=== PATIENT | female | born 1985 | race Caucasian/White ===

== ENCOUNTER 2017-08-26 22:11 | Emergency (ER) | payer OTHER ==
[~2017-08-26] VITALS: Ht 162.6 cm; Wt 93.5 kg
[~2017-08-26 22:11] MED LIST: SEASTAB2 PO
[2017-08-26 22:23] VITALS: BP 134/65; PULSE 110; RESP 18; TEMP 97.8; O2SAT 97
[2017-08-26] MEDS ORDERED: DOXY10TA PO (22:32)
[2017-08-26] MEDS ORDERED: PROM25TA10 PO (22:32)
[2017-08-26] MEDS ORDERED: LEVO50TA4 PO (22:32)
--- NOTE | 2017-08-26 23:24 | PD ---
HPI Chief Complaint: GI Complaint Time Seen by Provider: 23:19 Travel History International Travel<30 days: No Contact w/Intl Traveler<30days: No Traveled to known affect area: No History of Present Illness HPI The patient is a 32-year-old female, G2, P1, A0 who has vomiting of . This is been going on for about 2 weeks and her manager content is prescribed Phenergan and diglegis. She also has prescribed Unisom. She did not take the Phenergan today because she does not like the way it makes her sleepy. She did not adequately treat her self today for nausea and believes she is dehydrated and wants to get some IV fluids and parenteral nausea medications here in the emergency department. She denies any significant abdominal pain. Her first had similar symptoms of hyperemesis gravidarum. PFSH Past Medical History Diminished Hearing: No Genitourinary: Yes (KIDNEY REFLUX CHILD) Immunizations Current: No Thyroid Disease: Yes Tetanus Vaccination: < 5 Years Influenza Vaccination: Yes ?: LMP: 05/15/17 : 2 Para: 1 Past Surgical History Oral Surgery: Yes Other Surgery: Yes (BREAST IMPLANTS) Family History Family Hypercholesterolemia: Yes (FATHER) Social History Alcohol Use: Yes (OCCASIONALLY) Tobacco Use: No Substance Use: No Allergies-Medications (Allergen,Severity, Reaction): Coded Allergies: penicillin G (Unverified Allergy, Severe, HIVES, 08/26/17) cephalexin (Unverified Allergy, Mild, hives, 08/26/17) Reported Meds & Prescriptions Reported Meds & Active Scripts Active Reported Phenergan (Promethazine HCl) 25 Mg Tablet 25 Mg PO Q6H PRN Levothyroxine (Levothyroxine Sodium) 50 Mcg Tab 50 Mcg PO DAILY Diclegis (Doxylamine-Pyridoxine) 10-10 Mg Tab 2 Tab PO HS Review of Systems Except as stated in HPI: all other systems reviewed are Neg Physical Exam Narrative GENERAL: The patient is alert, slightly dehydrated-appearing, oriented 3 in minimal apparent distress with her abdominal discomfort. Her vital signs show heart rate of 110 and blood pressure 134/65 but otherwise normal. SKIN: Focused skin assessment warm/dry. HEAD: Atraumatic. Normocephalic. EYES: Pupils equal and round. No scleral icterus. No injection or drainage. ENT: No nasal bleeding or discharge. Mucous membranes pink and moist. NECK: Trachea midline. No JVD. CARDIOVASCULAR: Regular rate and rhythm. No murmur appreciated. RESPIRATORY: No accessory muscle use. Clear to auscultation. Breath sounds equal bilaterally. GASTROINTESTINAL: Abdomen soft, non-tender, nondistended. Hepatic and splenic margins not palpable. No guarding or rebound is present. MUSCULOSKELETAL: No obvious deformities. No clubbing. No cyanosis. No edema. NEUROLOGICAL: Awake and alert. No obvious cranial nerve deficits. Motor grossly within normal limits. Normal speech. PSYCHIATRIC: Appropriate mood and affect; insight and judgment normal. Data Data Last Documented VS Vital Signs Date Time Temp Pulse Resp B/P (MAP) Pulse Ox O2 Delivery O2 Flow Rate FiO2 08/26/17 22:35 18 08/26/17 22:23 97.8 110 134/65 (88) 97 Orders Orders Promethazine Inj (Phenergan Inj) (08/26/17 23:30) Sodium Chlor 0.9% 1000 Ml Inj (Ns 1000 M (08/26/17 23:30) Acetaminophen (Tylenol) (08/26/17 23:30) Complete Blood Count With Diff (08/26/17 23:24) Comprehensive Metabolic Panel (08/26/17 23:24) Lipase (08/26/17 23:24) Labs Laboratory Tests Test 08/26/17 23:40 White Blood Count 8.7 TH/MM3 Red Blood Count 4.53 MIL/MM3 Hemoglobin 12.6 GM/DL Hematocrit 38.0 % Mean Corpuscular Volume 84.0 FL Mean Corpuscular Hemoglobin 27.9 PG Mean Corpuscular Hemoglobin Concent 33.3 % Red Cell Distribution Width 12.3 % Platelet Count 220 TH/MM3 Mean Platelet Volume 8.3 FL Neutrophils (%) (Auto) 70.4 % Lymphocytes (%) (Auto) 18.8 % Monocytes (%) (Auto) 8.7 % Eosinophils (%) (Auto) 1.8 % Basophils (%) (Auto) 0.3 % Neutrophils # (Auto) 6.1 TH/MM3 Lymphocytes # (Auto) 1.6 TH/MM3 Monocytes # (Auto) 0.8 TH/MM3 Eosinophils # (Auto) 0.2 TH/MM3 Basophils # (Auto) 0.0 TH/MM3 CBC Comment DIFF FINAL Differential Comment Blood Urea Nitrogen 10 MG/DL Creatinine 0.47 MG/DL Random Glucose 93 MG/DL Total Protein 7.5 GM/DL Albumin 3.5 GM/DL Calcium Level 8.6 MG/DL Alkaline Phosphatase 53 U/L Aspartate Amino Transf (AST/SGOT) 21 U/L Alanine Aminotransferase (ALT/SGPT) 41 U/L Total Bilirubin 0.4 MG/DL Sodium Level 137 MEQ/L Potassium Level 3.5 MEQ/L Chloride Level 105 MEQ/L Carbon Dioxide Level 23.0 MEQ/L Anion Gap 9 MEQ/L Estimat Glomerular Filtration Rate 155 ML/MIN Lipase 145 U/L MDM Medical Decision Making Medical Screen Exam Complete: Yes Emergency Medical Condition: Yes Medical Record Reviewed: Yes Interpretation(s) The CBC is normal. The complete metabolic profile is normal. The lipase is normal. Differential Diagnosis Hyperemesis gravidarum, viral gastroenteritis, acute appendicitis, cholecystitis , HEELP syndrome-highly unlikely Narrative Course It is now 003 6 in the morning and the patient has had 2 L of fluid. She should take her Phenergan and other nausea medications as prescribed by her manager content. She has these medications at home. The blood work shows no chemical evidence of dehydration. The patient has hyperemesis gravidarum, there is no clinical evidence for the other entities as listed above. Diagnosis Primary Impression: Hyperemesis gravidarum Additional Instructions: As we discussed, take your medications that the manager content gave you at home. Med/Other Pt SpecificInfo: No Change to Meds Disposition: 01 DISCHARGE HOME Condition: Stable Tyler Martinez MD Aug 26, 2017 23:24
[2017-08-26] MEDS ORDERED: ACETAMINOPHEN 500 MG CPLT PO ONE (23:30)
[2017-08-26] MEDS ORDERED: PROMETHAZINE INJ 25 MG/ML VIAL IM ONE (23:30)
[2017-08-26] MEDS: SODIUM CHLOR 0.9% 1000 ML INJ 1,000 ML IV SCH (23:42)
[2017-08-26 23:45] VITALS: BP 124/79; PULSE 72; RESP 18; O2SAT 100
[2017-08-26 23:55] LABS: AUTOMATED NEUTROPHIL # 6.1 TH/MM3 (1.8-7.7); BASOPHIL % 0.3 % (0.0-2.0); EOSINOPHIL # 0.2 TH/MM3 (0-0.4); EOSINOPHIL % 1.8 % (0.0-4.0); HEMOGLOBIN 12.6 GM/DL (11.6-15.3); LYMPH % 18.8 % (9.0-44.0); LYMPHOCYTE # 1.6 TH/MM3 (1.0-4.8); MEAN CORPUSCULAR HEMOGLOBIN 27.9 PG (27.0-34.0); MEAN CORPUSCULAR HGB CONC 33.3 % (32.0-36.0); MEAN PLATELET VOLUME 8.3 FL (7.0-11.0); MONO % 8.7 % (0.0-8.0); MONOCYTE # 0.8 TH/MM3 (0-0.9); NEUT % 70.4 % (16.0-70.0); PLATELET COUNT 220 TH/MM3 (150-450); RED BLOOD COUNT 4.53 MIL/MM3 (4.00-5.30); RED CELL DISTRIBUTION WIDTH 12.3 % (11.6-17.2); WHITE BLOOD COUNT 8.7 TH/MM3 (4.0-11.0)
[2017-08-27 00:01] LABS: CHLORIDE 105 MEQ/L (98-107); SODIUM (NA) 137 MEQ/L (136-145)
[2017-08-27 00:04] LABS: CALCIUM 8.6 MG/DL (8.5-10.1)
[2017-08-27 00:05] LABS: ALBUMIN 3.5 GM/DL (3.4-5.0); BLOOD UREA NITROGEN 10 MG/DL (7-18); GLUCOSE,RANDOM 93 MG/DL (74-106); LIPASE 145 U/L (73-393)
[2017-08-27 00:08] LABS: ALT (GPT) 41 U/L (10-53); AST (GOT) 21 U/L (15-37); CREATININE 0.47 MG/DL (0.50-1.00); GLOMERULAR FILTRATION RATE 155 ML/MIN (>89)
[2017-08-27 00:09] LABS: TOTAL BILIRUBIN ADULT 0.4 MG/DL (0.2-1.0); TOTAL PROTEIN 7.5 GM/DL (6.4-8.2)
[2017-08-27] MEDS: SODIUM CHLOR 0.9% 1000 ML INJ 1,000 ML IV SCH (00:10)
[2017-08-27 00:11] LABS: ALKALINE PHOSPHATASE 53 U/L (45-117)
[2017-08-27 00:45] VITALS: BP 124/76; PULSE 70; RESP 16; O2SAT 100
== END 2017-08-27 01:01 | disposition home or self-care (01) ==
LOC: PHED 22:11
DX: O21.0 Mild hyperemesis gravidarum (principal)
CPT/HCPCS: 80053; 83690; 85025; 96360; 96372; 99284; J2550; J7030

== ENCOUNTER 2017-09-01 14:16 | Inpatient (IN) | payer OTHER ==
[2017-09-01] VITALS (7 sets, daily range): BP systolic 107–112; BP diastolic 62–70; PULSE 66–70; RESP 17–18; TEMP 97.9–98.4
[~2017-09-01 14:16] MED LIST changes: +DOXY10TA PO; +PROM25TA10 PO; -SEASTAB2 PO
[2017-09-01] MEDS ORDERED: ALUMINUM/MAGNESIUM/SIMETH 30 ML CUP PO PRN (14:45)
[2017-09-01] MEDS ORDERED: METOCLOPRAMIDE HCL 10 MG/2 ML VIAL IV PUSH PRN (14:45)
[2017-09-01] MEDS ORDERED: SODIUM CHLORIDE 0.9% FLUSH 10 ML FLUSH IV FLUSH PRN (14:45)
[2017-09-01] MEDS ORDERED: PROMETHAZINE HCL 25 MG SUPP RECTAL PRN (14:45)
--- NOTE | 2017-09-01 14:56 | HHI.HP ---
HPI Chief Complaint severe hyperemesis, first trimester, camilo Date Seen: Sep 01, 2017 Time Seen: 14:45 Travel History International Travel<30 Days: No Contact w/Intl Traveler<30Days: No Known Affected Area: No History of Present Illness HPI 32 yo with camilo IUP at 11w2d EDC 03/21/18 admit for severe hyperemesis, unable to keep anything down for past 48 hours. Has been battling hyperemesis symptoms since 6 weeks, worse starting last Tuesday, pt went to ED over wknd for IV hydration and medication and was sent home, since discharge has been unable to tolerate po. Feeling weak, fatigued. Thought starting Synthroid last Tuesday may have been trigger for worsening of symptoms, but pt held dose yesterday on my recommendation and no improvement in symptoms. Diagnosed with subclinical hypothyroidism, started on synthroid 50mcg daily by Dr. Mcintosh. No fevers, no chills, just nausea/emesis/increased saliva production, feeling weak. Pain 2/10 cramps in abdomen, mainly from repetitive emesis. No vaginal bleeding. Too early for FM. Weeks Gestation: 11 Para: 1 : 2 History Past Medical History Medical History: Denies Significant Hx Obstetric History Obstetric History G1 = 37x5 wk 7#15oz daughter "Marlys" G2 = current EDC 03/21/18 Past Surgical History Narrative Surgical breast augmentation 02/2007 Family History Family History: Negative Social History Alcohol Use: No Tobacco Use: No Substance Abuse: No Allergies-Medications (Allergen,Severity, Reaction): Coded Allergies: penicillin G (Unverified Allergy, Severe, HIVES, 09/01/17) cephalexin (Unverified Allergy, Mild, hives, 09/01/17) Home Meds Reported Medications Promethazine (Phenergan) 25 Mg Tablet, 25 MG PO Q6H Y for NAUSEA OR VOMITING, TAB 0 Refills 08/26/17 Levothyroxine (Levothyroxine) 50 Mcg Tab, 50 MCG PO DAILY for Thyroid, #30 TAB 0 Refills 08/26/17 Doxylamine-Pyridoxine (Diclegis) 10-10 Mg Tab, 2 TAB PO HS 08/26/17 Review of Systems General / Constitutional: Weight Loss, No: Fever, Weight Gain, Chills, Other Eyes: No: Diploplia, Blurred Vision, Visual changes, Pain, Photophobia HENT: Lightheadedness, No: Headaches, Vertigo Cardiovascular: No: Irregular Rhythm, Chest Pain or Discomfort, Palpitations, Tachycardia, Syncope, Varicosities, Edema, Cyanosis Respiratory: No: Cough, Short of Breath, Other Gastrointestinal: Nausea, Vomiting, No: Diarrhea Genitourinary: No: Decreased Urinary Output, Oliguria Musculoskeletal: Weakness, Cramping, No: Limited ROM, Edema, Pain Skin: No Rash, No Itching, No Dryness, No Lumps, No Change in Pigmentation, No Change in Nails, No Alopecia, No Lesions Neurologic: Weakness, No: Dizziness, Syncope, Focal Abnormalities, Coordination Problem, Headache, Slurred Speech, Seizures Psychiatric: No: Depression, Suicidal Ideations, Homicidal Ideation Endocrine: No: Heat Intolerance, Cold Intolerance, Polydipsia, Polyuria, Other Physical Exam Narrative GENERAL: Appears ill. Fatigued. SKIN: Warm and dry. HEAD: Normocephalic and atraumatic. EYES: No scleral icterus. No injection or drainage. ENT: No nasal drainage noted. Mucous membranes pink. Airway patent. NECK: Supple, trachea midline. No JVD. CARDIOVASCULAR: Regular rate and rhythm without murmurs, gallops, or rubs. RESPIRATORY: Breath sounds equal bilaterally. No accessory muscle use. BREASTS: deferred ABDOMEN/GI: Abdomen soft, non-tender, bowel sounds present, no rebound, no guarding fundus beneath symphysis, only 11 wks GENITOURINARY: deferred EXTREMITIES: No cyanosis or edema. BACK: Nontender without obvious deformity. No CVA tenderness. NEUROLOGICAL: Awake and alert. Motor and sensory grossly within normal limits. Five out of 5 muscle strength in all muscle groups. Normal speech. Caprini VTE Risk Assessment Caprini VTE Risk Assessment: No/Low Risk (score <= 1) VTE Pharm Contraindication: High risk for bleeding Caprini Risk Assessment Model Point Value = 1 Point Value = 2 Point Value = 3 Point Value = 5 Age 41-60 Minor surgery BMI > 25 kg/m2 Swollen legs Varicose veins or History of unexplained or recurrent spontaneous Oral contraceptives or hormone replacement Sepsis (< 1 month) Serious lung disease, including pneumonia (< 1 month) Abnormal pulmonary function Acute myocardial infarction Congestive heart failure (< 1 month) History of inflammatory bowel disease Medical patient at bed rest Age 61-74 Arthroscopic surgery Major open surgery (> 45 min) Laparoscopic surgery (> 45 min) Malignancy Confined to bed (> 72 hours) Immobilizing plaster cast Central venous access Age >= 75 History of VTE Family history of VTE Factor V Leiden Prothrombin [id number] Lupus anticoagulant Anticardiolipin antibodies Elevated serum homocysteine Heparin-induced thrombocytopenia Other congenital or acquired thrombophilia Stroke (< 1 month) Elective arthroplasty Hip, pelvis, or leg fracture Acute spinal cord injury (< 1 month) Prophylaxis Regimen Total Risk Factor Score Risk Level Prophylaxis Regimen 0-1 Low Early ambulation 2 Moderate Order ONE of the following: *Sequential Compression Device (SCD) *Heparin 5000 units SQ BID 3-4 Higher Order ONE of the following medications: *Heparin 5000 units SQ TID *Enoxaparin/Lovenox 40 mg SQ daily (WT < 150 kg, CrCl > 30 mL/min) *Enoxaparin/Lovenox 30 mg SQ daily (WT < 150 kg, CrCl > 10-29 mL/min) *Enoxaparin/Lovenox 30 mg SQ BID (WT < 150 kg, CrCl > 30 mL/min) AND/OR *Sequential Compression Device (SCD) 5 or more Highest Order ONE of the following medications: *Heparin 5000 units SQ TID (Preferred with Epidurals) *Enoxaparin/Lovenox 40 mg SQ daily (WT < 150 kg, CrCl > 30 mL/min) *Enoxaparin/Lovenox 30 mg SQ daily (WT < 150 kg, CrCl > 10-29 mL/min) *Enoxaparin/Lovenox 30 mg SQ BID (WT < 150 kg, CrCl > 30 mL/min) AND *Sequential Compression Device (SCD) Data Data Vital Signs Reviewed: Yes Orders Orders Place In Observation (09/01/17 ) Diet Liquid (09/01/17 Dinner) Vital Signs (Adult) [id number] AWAKE (09/01/17 14:40) Activity Oob Ad Gogo (09/01/17 14:40) Complete Blood Count With Diff (09/01/17 14:40) Basic Metabolic Panel (Bmp) (09/01/17 14:40) Hepatic Functional Panel (09/01/17 14:40) Urinalysis - C+S If Indicated (09/01/17 14:40) Lactated Ringer's 1000 Ml Inj (Lr 1000 M (09/01/17 14:40) Acetaminophen (Tylenol) (09/01/17 14:45) Al-Mag Hy-Si 40-40-4 Mg/Ml Liq (Mag-Al P (09/01/17 14:45) Sodium Chloride 0.9% Flush (Ns Flush) (09/01/17 14:45) Sodium Chloride 0.9% Flush (Ns Flush) (09/01/17 14:45) Ondansetron Inj (Zofran Inj) (09/01/17 14:45) Us Ob Limited (09/01/17 14:40) Specimen To Be Collected PRN (09/01/17 14:40) Metoclopramide Inj (Reglan Inj) (09/01/17 14:45) Levothyroxine (Synthroid) (09/02/17 06:00) Thyroid Stimulating Hormone (09/01/17 14:45) Free Thyroxine (T4) (09/01/17 14:44) Promethazine Supp (Phenergan Supp) (09/01/17 14:45) Assessment/Plan Problem List: (1) Hyperemesis complicating , antepartum ICD Codes: O21.0 - Mild hyperemesis gravidarum Status: Acute Assessment and Plan 32 yo with camilo IUP at 11w2d admit for severe hyperemesis gravidarum 1) Hyperemesis: labs ordered, will check electrolytes; IVF ordered, clear diet for now if tolerated, IV Zofran scheduled, Reglan prn, promethazine suppository prn 2) subclinical hypothyroidism: was started on synthroid 50mcg at last visit, pt started to have worsening of symptoms after starting dose, will try 25mcg dose instead and repeat labs while inpt 3) status: last office sono 08/09/17 confirmed viable camilo IUP at 8w0d with EDC 03/21/18; will order sono for FHTs while inpt today to confirm viability 4) dispo: not meeting criteria Discharge Planning not meeting criteria Zara Avalos MD Sep 01, 2017 14:56
[2017-09-01] MEDS: LACTATED RINGER'S 1000 ML INJ 1,000 ML IV SCH ×2 (16:07→16:11)
[2017-09-01] MEDS: SODIUM CHLORIDE 0.9% FLUSH 10 ML FLUSH IV FLUSH SCH ×2 (16:07→21:00)
[2017-09-01 16:09] LABS: AUTOMATED NEUTROPHIL # 4.9 TH/MM3 (1.8-7.7); BASOPHIL % 0.2 % (0.0-2.0); EOSINOPHIL # 0.1 TH/MM3 (0-0.4); EOSINOPHIL % 1.6 % (0.0-4.0); HEMOGLOBIN 13.1 GM/DL (11.6-15.3); LYMPH % 27.2 % (9.0-44.0); LYMPHOCYTE # 2.1 TH/MM3 (1.0-4.8); MEAN CELL VOLUME 84.7 FL (80.0-100.0); MEAN CORPUSCULAR HEMOGLOBIN 29.3 PG (27.0-34.0); MEAN CORPUSCULAR HGB CONC 34.6 % (32.0-36.0); MEAN PLATELET VOLUME 8.9 FL (7.0-11.0); MONO % 9.3 % (0.0-8.0); MONOCYTE # 0.7 TH/MM3 (0-0.9); NEUT % 61.7 % (16.0-70.0); PLATELET COUNT 189 TH/MM3 (150-450); RED BLOOD COUNT 4.49 MIL/MM3 (4.00-5.30); WHITE BLOOD COUNT 7.9 TH/MM3 (4.0-11.0)
[2017-09-01] MEDS: ONDANSETRON HCL 4 MG/2 ML VIAL IV PUSH SCH ×2 (16:11→22:18)
[2017-09-01 16:27] LABS: ALBUMIN 3.8 GM/DL (3.4-5.0); BICARBONATE 20.6 MEQ/L (21.0-32.0); CALCIUM 8.9 MG/DL (8.5-10.1); CREATININE 0.46 MG/DL (0.50-1.00); DIRECT BILIRUBIN ADULT 0.1 MG/DL (0.0-0.2)
[2017-09-01 16:36] LABS: FREE T4 1.16 NG/DL (0.76-1.46); INDIRECT BILIRUBIN 0.2 MG/DL (0.0-0.8); TOTAL BILIRUBIN ADULT 0.3 MG/DL (0.2-1.0); TOTAL PROTEIN 7.7 GM/DL (6.4-8.2)
[2017-09-01 17:39] LABS: AMORPHOUS SEDIMENT, URINE RARE; BILIRUBIN, URINE NEG (NEG); BLOOD, URINE NEG (NEG); GLUCOSE,URINE NEG (NEG); KETONE, URINE 80 mg/dL (NEG); MUCUS URINE MANY /lpf (OCC); NITRITE,URINE NEG (NEG); PH, URINE 5.5 (5.0-8.5); SQUAMOUS EPITHELIAL CELL URINE 2 /hpf (0-5); URINE COLOR YELLOW (YELLW/STRAW); URINE LEUKOCYTE ESTERASE NEG (NEG)
[2017-09-01] MEDS: ACETAMINOPHEN 325 MG TAB PO PRN (19:14)
[2017-09-02] VITALS (11 sets, daily range): BP systolic 100–128; BP diastolic 59–77; PULSE 63–77; RESP 14–18; TEMP 98.1–99.2
[2017-09-02] MEDS: ACETAMINOPHEN 325 MG TAB PO PRN (06:33)
[2017-09-02] MEDS: ONDANSETRON HCL 4 MG/2 ML VIAL IV PUSH SCH (06:33)
[2017-09-02] MEDS: LEVOTHYROXINE SODIUM 25 MCG TAB PO SCH (06:33)
--- NOTE | 2017-09-02 08:41 | PD.OB.ANTE ---
Subjective Diagnosis: (1) Hyperemesis complicating , antepartum Interval History severe headache exacerbating nausea but no emesis since hydrated. miserable Objective Vital Signs Vital Signs Date Time Temp Pulse Resp B/P (MAP) Pulse Ox O2 Delivery O2 Flow Rate FiO2 09/02/17 04:35 98.1 16 09/02/17 04:35 67 101/67 (78) 09/02/17 00:28 68 100/59 (73) 09/02/17 00:28 16 09/01/17 23:05 98.4 09/01/17 23:05 66 18 107/62 (77) 09/01/17 19:32 18 09/01/17 19:29 67 112/70 (84) 09/01/17 19:28 97.9 09/01/17 18:36 70 112/68 (83) 09/01/17 18:35 17 09/01/17 17:00 18 Lab & Micro Results Test 09/01/17 15:15 09/01/17 15:30 Urine Color YELLOW Urine Turbidity HAZY Urine pH 5.5 Urine Specific Excel 1.032 Urine Protein 30 mg/dL Urine Glucose (UA) NEG mg/dL Urine Ketones 80 mg/dL Urine Occult Blood NEG Urine Nitrite NEG Urine Bilirubin NEG Urine Urobilinogen LESS THAN 2.0 MG/DL Urine Leukocyte Esterase NEG Urine RBC 1 /hpf Urine WBC 4 /hpf Urine Squamous Epithelial Cells 2 /hpf Urine Amorphous Sediment RARE Urine Mucus MANY /lpf Microscopic Urinalysis Comment CULT NOT INDICATED White Blood Count 7.9 TH/MM3 Red Blood Count 4.49 MIL/MM3 Hemoglobin 13.1 GM/DL Hematocrit 38.0 % Mean Corpuscular Volume 84.7 FL Mean Corpuscular Hemoglobin 29.3 PG Mean Corpuscular Hemoglobin Concent 34.6 % Red Cell Distribution Width 13.0 % Platelet Count 189 TH/MM3 Mean Platelet Volume 8.9 FL Neutrophils (%) (Auto) 61.7 % Lymphocytes (%) (Auto) 27.2 % Monocytes (%) (Auto) 9.3 % Eosinophils (%) (Auto) 1.6 % Basophils (%) (Auto) 0.2 % Neutrophils # (Auto) 4.9 TH/MM3 Lymphocytes # (Auto) 2.1 TH/MM3 Monocytes # (Auto) 0.7 TH/MM3 Eosinophils # (Auto) 0.1 TH/MM3 Basophils # (Auto) 0.0 TH/MM3 CBC Comment DIFF FINAL Differential Comment Blood Urea Nitrogen 9 MG/DL Creatinine 0.46 MG/DL Random Glucose 87 MG/DL Total Protein 7.7 GM/DL Albumin 3.8 GM/DL Calcium Level 8.9 MG/DL Alkaline Phosphatase 50 U/L Aspartate Amino Transf (AST/SGOT) 11 U/L Alanine Aminotransferase (ALT/SGPT) 21 U/L Total Bilirubin 0.3 MG/DL Direct Bilirubin 0.1 MG/DL Sodium Level 138 MEQ/L Potassium Level 3.6 MEQ/L Chloride Level 106 MEQ/L Carbon Dioxide Level 20.6 MEQ/L Anion Gap 11 MEQ/L Estimat Glomerular Filtration Rate 158 ML/MIN Indirect Bilirubin 0.2 MG/DL Free Thyroxine 1.16 NG/DL Thyroid Stimulating Hormone 3rd Gen 2.830 uIU/ML Physical Exam GENERAL: Well-nourished, well-developed patient. CARDIOVASCULAR: Regular rate and rhythm without murmurs, gallops, or rubs. RESPIRATORY: Breath sounds equal bilaterally. No accessory muscle use. ABDOMEN/GI: Abdomen soft, non-tender. EXTREMITIES: No cyanosis or edema, non-tender, without signs of DVT. Assessment and Plan Problem List: (1) Hyperemesis complicating , antepartum ICD Codes: O21.0 - Mild hyperemesis gravidarum Status: Acute Assessment and Plan 32 yo with camilo IUP at 11w2d admit for severe hyperemesis gravidarum 1) Hyperemesis: labs ordered, will check electrolytes; IVF ordered, clear diet for now if tolerated, IV Zofran scheduled, Reglan prn, promethazine suppository prn 2) subclinical hypothyroidism: was started on synthroid 50mcg at last visit, pt started to have worsening of symptoms after starting dose, will try 25mcg dose instead and repeat labs while inpt 3) status: last office sono 08/09/17 confirmed viable camilo IUP at 8w0d with EDC 03/21/18; will order sono for FHTs while inpt today to confirm viability 4) dispo: not meeting criteria 09/02/17 0830 will transition to po and give fioricet for headache Cleopatra Connor MD Sep 02, 2017 08:41
[2017-09-02] MEDS ORDERED: ACETAMIN 325 MG/BUTALBITAL 50 MG/CAFFEINE 40 MG TAB PO ONE (08:45)
[2017-09-02] MEDS: SODIUM CHLORIDE 0.9% FLUSH 10 ML FLUSH IV FLUSH SCH ×2 (09:00→19:15)
[2017-09-02] MEDS: PANTOPRAZOLE SOD 40 MG DELAYED RELEASE TAB PO SCH (10:36)
[2017-09-02] MEDS: METOCLOPRAMIDE HCL 10 MG TAB PO SCH ×2 (12:00→16:59)
[2017-09-02] MEDS: SUCRALFATE 1 GM TAB PO SCH ×3 (12:00→21:01)
[2017-09-02] MEDS ORDERED: ONDANSETRON HCL 4 MG/2 ML VIAL ONE (14:48)
[2017-09-02] MEDS ORDERED: ONDANSETRON INJ 8 MG in DEXTROSE 5% IN WATER INJ 50 ML IV PUSH ONE ×2 (16:00)
--- NOTE | 2017-09-02 17:37 | PD.OB.ANTE ---
Subjective Diagnosis: (1) Hyperemesis complicating , antepartum Interval History Still having trouble with eating. Nausea but no vomiting only has voided once Objective Vital Signs Vital Signs Date Time Temp Pulse Resp B/P (MAP) Pulse Ox O2 Delivery O2 Flow Rate FiO2 09/02/17 15:00 98.8 18 09/02/17 14:56 76 121/66 (84) 09/02/17 10:37 16 09/02/17 10:00 98.1 16 09/02/17 09:17 67 113/68 (83) 09/02/17 04:35 98.1 16 09/02/17 04:35 67 101/67 (78) 09/02/17 00:28 68 100/59 (73) 09/02/17 00:28 16 09/01/17 23:05 98.4 09/01/17 23:05 66 18 107/62 (77) 09/01/17 19:32 18 09/01/17 19:29 67 112/70 (84) 09/01/17 19:28 97.9 09/01/17 18:36 70 112/68 (83) 09/01/17 18:35 17 Physical Exam GENERAL: Well-nourished, well-developed patient. CARDIOVASCULAR: Regular rate and rhythm without murmurs, gallops, or rubs. RESPIRATORY: Breath sounds equal bilaterally. No accessory muscle use. ABDOMEN/GI: Abdomen soft, non-tender. Fundus: [-] GENITOURINARY: External Genitalia: intact and normal in appearance Cervix: [-] Dilatation: [-] Effacement: [-] Station: [-] Presentation: [-] Membranes: [-] Uterine Contractions: [-] FHT's: Category: [-] Baseline: [-] Reactive: [-] Variability: [-] Decels: [-] EXTREMITIES: No cyanosis or edema, non-tender, without signs of DVT. Assessment and Plan Problem List: (1) Hyperemesis complicating , antepartum ICD Codes: O21.0 - Mild hyperemesis gravidarum Status: Acute Assessment and Plan 32 yo with camilo IUP at 11w2d admit for severe hyperemesis gravidarum 1) Hyperemesis: labs ordered, will check electrolytes; IVF ordered, clear diet for now if tolerated, IV Zofran scheduled, Reglan prn, promethazine suppository prn 2) subclinical hypothyroidism: was started on synthroid 50mcg at last visit, pt started to have worsening of symptoms after starting dose, will try 25mcg dose instead and repeat labs while inpt 3) status: last office sono 08/09/17 confirmed viable camilo IUP at 8w0d with EDC 03/21/18; will order sono for FHTs while inpt today to confirm viability 4) dispo: not meeting criteria 09/02/17 0830 will transition to po and give fioricet for headache 09/02/16 17:30 will keep over night with continue carafate and reglan and zofran and protonic discharge in the am Cleopatra Connor MD Sep 02, 2017 17:37
[2017-09-02] MEDS ORDERED: METO10TA PO (17:41)
[2017-09-02] MEDS ORDERED: CARA1TAB6 PO (17:41)
[2017-09-02] MEDS ORDERED: LEVO25TA4 PO (17:41)
--- NOTE | 2017-09-02 17:41 | HHI.DCPOC ---
Discharge Care Plan Report Symptoms to Your Doctor -Temperature above 100.5 degrees -Redness, of incision or excessive or foul smelling drainage -Unusual pain or calf pain -Increased vaginal bleeding -Painful or difficulty urinating -Feelings of extreme sadness or anxiety after 2 weeks Goals to Promote Your Health * To prevent worsening of your condition and complications * To maintain your health at the optimal level Directions to Meet Your Goals Take your medications as prescribed Follow your dietary instruction Follow activity as directed Ensure plenty of rest for recovery Drink fluids for hydration Keep your appointments as scheduled Take your immunizations and boosters as scheduled If your symptoms worsen call your PCP, if no PCP go to Urgent Care Center or Emergency Room Smoking is Dangerous to Your Health. Avoid second hand smoke Call the 24-hour crisis hotline for domestic abuse at Cleopatra Connor MD Sep 02, 2017 17:41
[2017-09-02] MEDS: LACTATED RINGER'S 1000 ML INJ 1,000 ML IV SCH ×2 (19:15→20:55)
[2017-09-02] MEDS ORDERED: DIPHENOXYLATE/ATROPINE 2.5 MG/0.025 MG TAB PO ONE (20:45)
[2017-09-02] MEDS: ONDANSETRON ODT 4 MG TAB PO PRN (21:00)
[2017-09-02] MEDS ORDERED: ACETAMIN 325 MG/BUTALBITAL 50 MG/CAFFEINE 40 MG TAB PO PRN (23:45)
[2017-09-03] VITALS (13 sets, daily range): BP systolic 104–134; BP diastolic 61–69; PULSE 63–72; RESP 9–18; TEMP 97.7–99.1
[2017-09-03] MEDS: ZOLPIDEM TARTRATE 5 MG TAB PO PRN (00:19)
[2017-09-03] MEDS: ACETAMIN 325 MG/BUTALBITAL 50 MG/CAFFEINE 40 MG TAB PO PRN ×2 (00:19→13:51)
[2017-09-03] MEDS: LEVOTHYROXINE SODIUM 25 MCG TAB PO SCH (06:47)
[2017-09-03] MEDS: ONDANSETRON ODT 4 MG TAB PO PRN ×3 (06:53→18:04)
[2017-09-03] MEDS: SUCRALFATE 1 GM TAB PO SCH ×4 (08:12→21:00)
[2017-09-03] MEDS: PANTOPRAZOLE SOD 40 MG DELAYED RELEASE TAB PO SCH (08:12)
[2017-09-03] MEDS: SODIUM CHLORIDE 0.9% FLUSH 10 ML FLUSH IV FLUSH SCH ×2 (08:13→21:00)
[2017-09-03] MEDS: LACTATED RINGER'S 1000 ML INJ 1,000 ML IV SCH (08:59)
--- NOTE | 2017-09-03 13:39 | HHI.PR ---
Subjective Remarks I am still sick. Had a piece of toast this morning and That down but now I am very nauseated. I'm drinking only emery fuad no water The Reglan gave me diarrhea but seemed to work well for the nausea I have Diclegis at home but have not been taking care Objective Vital Signs Date Time Temp Pulse Resp B/P (MAP) Pulse Ox O2 Delivery O2 Flow Rate FiO2 09/03/17 10:00 97.7 09/03/17 09:42 18 09/03/17 09:23 63 104/61 (75) 09/03/17 09:00 17 09/03/17 08:00 16 09/03/17 03:54 63 15 108/62 (77) 09/03/17 03:53 98.2 09/02/17 23:25 16 09/02/17 23:24 99.2 09/02/17 23:21 63 118/70 (86) 09/02/17 19:25 98.1 14 09/02/17 19:24 77 128/77 (94) 09/02/17 15:00 98.8 18 09/02/17 14:56 76 121/66 (84) Result Diagram: 09/01/17 1530 09/01/17 1530 Other Results Well-developed well-nourished female in bed, resting comfortably Neck is supple trachea is in the midline Chest is clear to auscultation Heart has a regular rate and rhythm Abdomen is soft slightly tender right under the xiphoid process,. No mass and good bowel sounds are present Extremities no clubbing cyanosis or edema her skin turgor is poor Assessment and Plan Assessment and Plan 1. Intrauterine at 11 weeks 2. Severe nausea and vomiting of she has been on Zofran sublingually and by IV she has been on Reglan which gave her diarrhea up to nausea, Phenergan suppositories they really don't help with the nausea, she has Diclegis at home but has not been taking it Labs were reviewed and were normal I feel at this point she is not a candidate to go home as she is not keeping down enough food. We plan to go ahead and get her diabetic cleavages here and will start that 1 pill now 2 at night and one in the morning we will also go ahead and add some Steroids to see if we can get her feeling better. The Reglan seemed to help and perhaps we could order smaller dose of that medicine. Discussed Condition With Patient and nurse Georgiana Paiz MD Sep 03, 2017 13:39
[2017-09-03] MEDS ORDERED: FOLIC ACID IV SCH (13:45)
[2017-09-03] MEDS ORDERED: MULTIVITAMIN IV SCH (13:45)
[2017-09-03] MEDS ORDERED: [UNRECOGNIZED DRUG - OTHER] IV SCH (13:45)
[2017-09-03] MEDS ORDERED: THIAMINE IV SCH (13:45)
[2017-09-03] MEDS: FOLIC ACID IV SCH (16:43)
[2017-09-03] MEDS: PYRIDOXINE IV SCH (16:43)
[2017-09-03] MEDS: [UNRECOGNIZED DRUG - OTHER] IV SCH (16:43)
[2017-09-03] MEDS: MULTIVITAMIN IV SCH (16:43)
[2017-09-03] MEDS: HYDROCORTISONE SOD SUCCINATE 100 MG VIAL IV PUSH SCH (16:44)
[2017-09-03] MEDS ORDERED: HYDROCORTISONE SOD SUCCINATE 100 MG VIAL IV PUSH SCH (21:00)
[2017-09-04] VITALS (19 sets, daily range): BP systolic 103–123; BP diastolic 56–71; PULSE 65–74; RESP 17–19; TEMP 97.8–98.9
[2017-09-04] MEDS: ONDANSETRON ODT 4 MG TAB PO PRN ×5 (00:04→23:10)
[2017-09-04] MEDS: ZOLPIDEM TARTRATE 5 MG TAB PO PRN (00:04)
[2017-09-04] MEDS: [UNRECOGNIZED DRUG - OTHER] IV SCH ×2 (00:05→16:15)
[2017-09-04] MEDS: PYRIDOXINE IV SCH ×2 (00:05→16:15)
[2017-09-04] MEDS: FOLIC ACID IV SCH ×2 (00:05→16:15)
[2017-09-04] MEDS: MULTIVITAMIN IV SCH ×2 (00:05→16:15)
[2017-09-04] MEDS: LACTATED RINGER'S 1000 ML INJ 1,000 ML IV SCH ×3 (01:30→16:40)
[2017-09-04] MEDS: HYDROCORTISONE SOD SUCCINATE 100 MG VIAL IV PUSH SCH ×2 (05:05→16:15)
[2017-09-04] MEDS: LEVOTHYROXINE SODIUM 25 MCG TAB PO SCH (06:12)
[2017-09-04] MEDS: SUCRALFATE 1 GM TAB PO SCH ×4 (07:59→21:03)
[2017-09-04] MEDS: SODIUM CHLORIDE 0.9% FLUSH 10 ML FLUSH IV FLUSH SCH ×2 (09:00→21:03)
--- NOTE | 2017-09-04 09:13 | HHI.PR ---
Subjective Remarks I thought I was feeling better this am but I tried to eat and began to dry heave Slept last nite but the nurse told me not to take the diclegis as I requested an ambien No BM since the diarrhea. Objective Vital Signs Date Time Temp Pulse Resp B/P (MAP) Pulse Ox O2 Delivery O2 Flow Rate FiO2 09/04/17 08:00 19 09/04/17 08:00 97.9 09/04/17 07:59 67 121/66 (84) 09/04/17 06:00 18 09/04/17 05:10 18 09/04/17 05:08 68 103/60 (74) 09/04/17 00:06 97.9 18 09/04/17 00:05 68 122/71 (88) 09/03/17 21:55 69 122/65 (84) 09/03/17 19:26 98.0 09/03/17 17:00 18 09/03/17 17:00 98.9 09/03/17 16:58 68 121/63 (82) 09/03/17 16:41 72 134/69 (90) 09/03/17 13:54 99.1 9 09/03/17 13:54 17 09/03/17 10:00 97.7 09/03/17 09:42 18 09/03/17 09:23 63 104/61 (75) Result Diagram: 09/01/17 1530 09/01/17 1530 Other Results WDWN in bed and her color looks much better today Lips are quite dry and skin turger is poor. Chest is clear Heart is RRR Abd is soft and slg tender over the stomach, no rebound, good bowel sounds Ext No CCE Assessment and Plan Problem List: (1) Hyperemesis complicating , antepartum ICD Codes: O21.0 - Mild hyperemesis gravidarum Status: Acute Assessment and Plan 1. Intrauterine at 11 weeks 2. Severe nausea and vomiting of , She did not take the diglegis last nite so will give her 2 tabs now and one after lunch and then 2 tonight. Will continue the steriods and I feel with the addition of diclegis we will be able to control her vomiting and hopefully she will be able to eat a BRAT diet. We may need to add back some Reglan or consider a zofran pump tomorrow but I want to give the other meds a day to work. I would use a small dose as she had terrible diarrhea with the last dose. We can also consider a PICC line and home health to give her IVF. 3. Dehydration clinically she is quite dry and I will give her a liter of LR now as this may help as well. Georgiana Paiz MD Sep 04, 2017 09:13
[2017-09-04] MEDS ORDERED: LACTATED RINGER'S 1000 ML INJ 1,000 ML IV ONE (09:15)
[2017-09-04 10:11] LABS: HEMATOCRIT 33.4 % (35.0-46.0); HEMOGLOBIN 11.2 GM/DL (11.6-15.3); MEAN CORPUSCULAR HEMOGLOBIN 28.7 PG (27.0-34.0); MEAN CORPUSCULAR HGB CONC 33.4 % (32.0-36.0); MEAN PLATELET VOLUME 8.6 FL (7.0-11.0); PLATELET COUNT 171 TH/MM3 (150-450); RED BLOOD COUNT 3.88 MIL/MM3 (4.00-5.30); RED CELL DISTRIBUTION WIDTH 12.9 % (11.6-17.2); WHITE BLOOD COUNT 7.1 TH/MM3 (4.0-11.0)
[2017-09-04] MEDS: PANTOPRAZOLE SOD 40 MG DELAYED RELEASE TAB PO SCH (10:20)
[2017-09-04] MEDS: ACETAMINOPHEN 325 MG TAB PO PRN ×2 (10:20→16:51)
[2017-09-04 10:37] LABS: ALBUMIN 2.9 GM/DL (3.4-5.0); ALKALINE PHOSPHATASE 43 U/L (45-117); ALT (GPT) 19 U/L (10-53); AST (GOT) 11 U/L (15-37); BICARBONATE 20.3 MEQ/L (21.0-32.0); BLOOD UREA NITROGEN 4 MG/DL (7-18); CALCIUM 8.2 MG/DL (8.5-10.1); CHLORIDE 107 MEQ/L (98-107); CREATININE 0.71 MG/DL (0.50-1.00); GLOMERULAR FILTRATION RATE 96 ML/MIN (>89); GLUCOSE,RANDOM 144 MG/DL (74-106); SODIUM (NA) 139 MEQ/L (136-145); TOTAL BILIRUBIN ADULT 0.2 MG/DL (0.2-1.0); TOTAL PROTEIN 6.2 GM/DL (6.4-8.2)
[2017-09-04] MEDS ORDERED: FOLIC ACID IV SCH (16:00)
[2017-09-04] MEDS ORDERED: MULTIVITAMIN IV SCH (16:00)
[2017-09-04] MEDS ORDERED: PYRIDOXINE IV SCH (16:00)
[2017-09-04] MEDS ORDERED: [UNRECOGNIZED DRUG - OTHER] IV SCH (16:00)
[2017-09-04] MEDS ORDERED: ONDANSETRON HCL 4 MG/2 ML VIAL IV PUSH ONE (17:45)
[2017-09-04] MEDS: D5W + KCL 20 MEQ INJ 1,000 ML IV SCH (18:52)
[2017-09-05] VITALS (8 sets, daily range): BP systolic 96–121; BP diastolic 48–73; PULSE 60–69; RESP 20; TEMP 98.7–99.3
[2017-09-05] MEDS: LACTATED RINGER'S 1000 ML INJ 1,000 ML IV SCH (00:44)
[2017-09-05] MEDS: ZOLPIDEM TARTRATE 5 MG TAB PO PRN (00:44)
[2017-09-05] MEDS: ONDANSETRON ODT 4 MG TAB PO PRN (05:15)
[2017-09-05] MEDS: LEVOTHYROXINE SODIUM 25 MCG TAB PO SCH (05:59)
[2017-09-05] MEDS: HYDROCORTISONE SOD SUCCINATE 100 MG VIAL IV PUSH SCH (06:00)
[2017-09-05] MEDS ORDERED: FAMOTIDINE 20 MG TAB PO SCH (09:00)
[2017-09-05] MEDS: SODIUM CHLORIDE 0.9% FLUSH 10 ML FLUSH IV FLUSH SCH ×2 (09:00→21:00)
[2017-09-05] MEDS: SUCRALFATE 1 GM TAB PO SCH ×4 (09:59→21:23)
[2017-09-05] MEDS: PANTOPRAZOLE SOD 40 MG DELAYED RELEASE TAB PO SCH (10:37)
[2017-09-05] MEDS: METOCLOPRAMIDE HCL SYRUP 10 MG/10 ML UDC PO SCH ×2 (13:33→17:06)
[2017-09-05] MEDS: ONDANSETRON HCL 4 MG/2 ML VIAL IV PUSH PRN ×2 (15:33→22:39)
[2017-09-05] MEDS: ACETAMINOPHEN 325 MG TAB PO PRN (15:33)
[2017-09-05] MEDS: D5W + KCL 20 MEQ INJ 1,000 ML IV SCH (16:37)
[2017-09-05] MEDS: [UNRECOGNIZED DRUG - OTHER] IV SCH (17:00)
[2017-09-05] MEDS: PYRIDOXINE IV SCH (17:00)
[2017-09-05] MEDS: FOLIC ACID IV SCH (17:00)
[2017-09-05] MEDS: MULTIVITAMIN IV SCH (17:00)
--- NOTE | 2017-09-05 18:31 | PD.OB.ANTE ---
Subjective Diagnosis: (1) Hyperemesis complicating , antepartum Diagnosis: Principal Interval History Continues to c/o N/V, Does better when on IV zofran, not PO. Objective Vital Signs Vital Signs Date Time Temp Pulse Resp B/P (MAP) Pulse Ox O2 Delivery O2 Flow Rate FiO2 09/05/17 17:32 20 09/05/17 17:31 63 112/64 (80) 09/05/17 12:43 67 119/73 (88) 09/05/17 12:43 98.7 20 09/05/17 08:29 98.8 20 09/05/17 08:28 69 104/61 (75) 09/05/17 06:00 60 96/48 (64) 09/04/17 23:12 65 114/66 (82) 09/04/17 19:48 18 09/04/17 19:48 69 123/67 (85) 09/04/17 19:47 97.8 Physical Exam GENERAL: Well-nourished, well-developed patient. CARDIOVASCULAR: Regular rate and rhythm without murmurs, gallops, or rubs. RESPIRATORY: Breath sounds equal bilaterally. No accessory muscle use. ABDOMEN/GI: Abdomen soft, non-tender. Fundus: n/a [-] FHT's:150s EXTREMITIES: No cyanosis or edema, non-tender, without signs of DVT. Assessment and Plan Problem List: (1) Hyperemesis complicating , antepartum ICD Codes: O21.0 - Mild hyperemesis gravidarum Status: Acute Assessment and Plan 32 yo with camilo IUP at 11w6d admit for severe hyperemesis gravidarum Discussed adding iv zantac and trying lower dose, 5mg, of REGLAN, Patient states she developed diarrhea on 10mg REGLAN. Rishi Borden MD Sep 05, 2017 18:31
[2017-09-05] MEDS ORDERED: RANITIDINE HCL SYRUP 150 MG/10 ML UDC PO SCH (21:00)
[2017-09-06] VITALS (10 sets, daily range): BP systolic 111–116; BP diastolic 61–70; PULSE 62–66; RESP 18–20; TEMP 97.8–98.7
[2017-09-06] MEDS: ZOLPIDEM TARTRATE 5 MG TAB PO PRN (00:02)
[2017-09-06] MEDS: NS + KCL 20 MEQ INJ 1,000 ML IV SCH (02:58)
[2017-09-06] MEDS: ACETAMINOPHEN 325 MG TAB PO PRN ×2 (03:05→11:31)
[2017-09-06] MEDS: ONDANSETRON HCL 4 MG/2 ML VIAL IV PUSH PRN ×3 (04:50→18:29)
[2017-09-06] MEDS: LEVOTHYROXINE SODIUM 25 MCG TAB PO SCH (06:11)
[2017-09-06] MEDS: SODIUM CHLORIDE 0.9% FLUSH 10 ML FLUSH IV FLUSH SCH ×2 (09:00→21:00)
[2017-09-06] MEDS: PANTOPRAZOLE SOD 40 MG DELAYED RELEASE TAB PO SCH (09:44)
--- NOTE | 2017-09-06 10:05 | PD.OB.ANTE ---
Subjective Diagnosis: (1) Hyperemesis complicating , antepartum Diagnosis: Principal Interval History She has tolerated min solid foods. Tolerated gingerale. Has continued nausea, no vomiting yesterday. Still with dizziness when she closes her eyes. Objective Vital Signs Vital Signs Date Time Temp Pulse Resp B/P (MAP) Pulse Ox O2 Delivery O2 Flow Rate FiO2 09/06/17 08:14 20 09/06/17 08:14 97.9 09/06/17 08:12 66 112/69 (83) 09/06/17 03:03 97.9 18 09/06/17 03:02 63 111/64 (80) 09/06/17 00:00 66 112/70 (84) 09/06/17 00:00 98.0 18 09/05/17 19:56 99.3 20 09/05/17 19:55 66 121/73 (89) 09/05/17 17:32 20 09/05/17 17:31 63 112/64 (80) 09/05/17 12:43 67 119/73 (88) 09/05/17 12:43 98.7 20 Lab & Micro Results Test 09/05/17 23:00 Amylase Level 33 U/L Physical Exam GENERAL: Well-nourished, well-developed patient. CARDIOVASCULAR: Regular rate and rhythm without murmurs, gallops, or rubs. RESPIRATORY: Breath sounds equal bilaterally. No accessory muscle use. ABDOMEN/GI: Abdomen soft, non-tender. Fundus: [-] GENITOURINARY: External Genitalia: defer +FCA EXTREMITIES: No cyanosis or edema, non-tender, without signs of DVT. Assessment and Plan Problem List: (1) Hyperemesis complicating , antepartum ICD Codes: O21.0 - Mild hyperemesis gravidarum Status: Acute Assessment and Plan 32 yo with camilo IUP at 12w admit for severe hyperemesis gravidarum Feels only IV zophran helps with nausea/vomiting. W po zofran she stilll had excess salivation and spitting. Consider zofran pump/home health; case management consult placed. She is additionally on reglan, carafate and zantac; protonix d/c as zantac started yesterday. Completed course of hydrocortisone, in attempt to decrease nausea; pt uncertain if this helped. Dispo- not ready for discharge Bobbi Mcintosh MD Sep 06, 2017 10:05
[2017-09-06] MEDS: SUCRALFATE 1 GM TAB PO SCH ×3 (10:59→17:33)
[2017-09-06] MEDS: RANITIDINE 150 MG PO SCH ×2 (11:00→22:08)
[2017-09-06 11:28] LABS: HEPATITIS A AB IGM NEGATIVE (NEGATIVE); HEPATITIS B CORE AB IGM NEGATIVE (NEGATIVE); HEPATITIS B SURFACE ANTIGEN NEGATIVE (NEGATIVE); HEPATITIS C AB IgG NEGATIVE (NEGATIVE)
--- NOTE | 2017-09-06 12:13 | HHI.FF ---
Face to Face Verification Diagnosis: (1) Hyperemesis complicating , antepartum Physical Therapy Instructions: Needs zofran pump for hyperemesis Home Health Nursing Order: IV medication administration I have seen patient Mile Simpson Child on 09/06/17. My clinical findings support the need for the requested home health care services because: Injectable med education/admin I certify that my clinical findings support that this patient is homebound because: Unsafe to leave home unassisted (not home bound but needs continuous zofran pump as she is constantly vomiting/nauseated) Bobbi Mcintosh MD Sep 06, 2017 12:13
[2017-09-06] MEDS: ACETAMIN 325 MG/BUTALBITAL 50 MG/CAFFEINE 40 MG TAB PO PRN ×2 (12:47→14:06)
[2017-09-06] MEDS: METOCLOPRAMIDE HCL SYRUP 10 MG/10 ML UDC PO SCH ×2 (15:24→20:01)
[2017-09-06] MEDS: [UNRECOGNIZED DRUG - OTHER] IV SCH (20:00)
[2017-09-06] MEDS: MULTIVITAMIN IV SCH (20:00)
[2017-09-06] MEDS: FOLIC ACID IV SCH (20:00)
[2017-09-06] MEDS: PYRIDOXINE IV SCH (20:00)
[2017-09-06] MEDS: SUCRALFATE 1 GM/10 ML CUP PO SCH (22:07)
[2017-09-06 22:17] LABS: ALBUMIN 2.9 GM/DL (3.4-5.0); ALT (GPT) 28 U/L (10-53); AST (GOT) 17 U/L (15-37); BICARBONATE 23.5 MEQ/L (21.0-32.0); BLOOD UREA NITROGEN 5 MG/DL (7-18); CALCIUM 7.5 MG/DL (8.5-10.1); CHLORIDE 106 MEQ/L (98-107); CREATININE 0.46 MG/DL (0.50-1.00); GLOMERULAR FILTRATION RATE 158 ML/MIN (>89); GLUCOSE,RANDOM 105 MG/DL (74-106); MAGNESIUM 1.7 MG/DL (1.5-2.5); PHOSPHORUS 2.2 MG/DL (2.5-4.9); SODIUM (NA) 138 MEQ/L (136-145)
[2017-09-06 22:19] LABS: ALKALINE PHOSPHATASE 44 U/L (45-117); TOTAL BILIRUBIN ADULT 0.2 MG/DL (0.2-1.0); TOTAL PROTEIN 6.1 GM/DL (6.4-8.2)
[2017-09-07] VITALS (15 sets, daily range): BP systolic 105–118; BP diastolic 66–82; PULSE 60–70; RESP 16–18; TEMP 97.5–99.2
[2017-09-07] MEDS: ONDANSETRON HCL 4 MG/2 ML VIAL IV PUSH PRN (02:18)
[2017-09-07] MEDS: LEVOTHYROXINE SODIUM 25 MCG TAB PO SCH (05:19)
[2017-09-07] MEDS: NS + KCL 20 MEQ INJ 1,000 ML IV SCH (05:19)
[2017-09-07] MEDS: METOCLOPRAMIDE HCL SYRUP 10 MG/10 ML UDC PO SCH ×4 (08:18→22:15)
[2017-09-07] MEDS: SUCRALFATE 1 GM/10 ML CUP PO SCH ×4 (08:26→20:39)
--- NOTE | 2017-09-07 08:35 | PD.OB.ANTE ---
Subjective Diagnosis: (1) Hyperemesis complicating , antepartum Diagnosis: Principal Interval History yesterday had episode of emesis again around noon, "I'm afraid to eat"; requests to see MFM today to discuss multiple medications necessary for control of hyperemesis; minimal intake yesterday; tired; denies headache, vision changes , no VB or LOF, too early for FM Antepartum ROS: Denies: New complaints, Loss of fluid, Vaginal bleeding, Contractions, Other Objective Vital Signs Vital Signs Date Time Temp Pulse Resp B/P (MAP) Pulse Ox O2 Delivery O2 Flow Rate FiO2 09/07/17 06:12 16 09/07/17 05:00 18 09/07/17 02:22 98.4 09/07/17 02:21 60 16 113/71 (85) 09/07/17 01:00 18 09/06/17 23:00 18 09/06/17 20:20 97.8 18 09/06/17 20:20 66 116/64 (81) 09/06/17 15:08 65 113/61 (78) 09/06/17 15:08 98.7 20 09/06/17 13:00 20 09/06/17 12:54 62 112/66 (81) Lab & Micro Results Test 09/06/17 21:11 Blood Urea Nitrogen 5 MG/DL Creatinine 0.46 MG/DL Random Glucose 105 MG/DL Total Protein 6.1 GM/DL Albumin 2.9 GM/DL Calcium Level 7.5 MG/DL Phosphorus Level 2.2 MG/DL Magnesium Level 1.7 MG/DL Alkaline Phosphatase 44 U/L Aspartate Amino Transf (AST/SGOT) 17 U/L Alanine Aminotransferase (ALT/SGPT) 28 U/L Total Bilirubin 0.2 MG/DL Sodium Level 138 MEQ/L Potassium Level 3.1 MEQ/L Chloride Level 106 MEQ/L Carbon Dioxide Level 23.5 MEQ/L Anion Gap 9 MEQ/L Estimat Glomerular Filtration Rate 158 ML/MIN Physical Exam GENERAL: Well-nourished, well-developed patient. Laying in bed. Dry mucous membranes. Good capillary refill. CARDIOVASCULAR: Regular rate and rhythm without murmurs, gallops, or rubs. RESPIRATORY: Breath sounds equal bilaterally. No accessory muscle use. ABDOMEN/GI: Abdomen soft, non-tender. Fundus: c/w dates 12 wks beneath symphysis GENITOURINARY: External Genitalia: deferred FHT's: ultrasound ordered for today EXTREMITIES: No cyanosis or edema, non-tender, without signs of DVT. Assessment and Plan Problem List: (1) Severe hyperemesis gravidarum ICD Codes: O21.1 - Hyperemesis gravidarum with metabolic disturbance Status: Acute Assessment and Plan 32 yo with camilo IUP at 12w1d admit for severe hyperemesis gravidarum last 09/01/17 HD#6 on 09/07/17 1) severe hyperemesis, now with hypokalemia: IV NS + KCL ordered for replacement today; on review of medications all are prn; will change to scheduled as IV Zofran seems to be only medication that truly helps; consulted case management yesterday for Zofran pump and home healthcare; will call again today to f/u and see if available/who brings pumps/who sets up - change IV Zofran from prn to scheduled q4h - continue bid zantac po and reglan liquid qhs - plan MFM consult today to review polypharmacy and discuss risk/benefit profile in detail, make recommendations for additions/testing/etc.; will confirm viability on ultrasound again today as well - not meeting d/c criteria at this time, will re-evaluate later today - s/p course of hydrocortisone in attempt to decrease nausea, pt uncertain if this helped 2) subclinical hypothyroidism: TSH/FT4 trended over past 3 weeks with normalization but TPO antibody elevated; continue synthroid 25mcg daily 3) status: 12w1d, camilo; will confirm viability with sono today 4) dispo: not yet meeting criteria Zara Avalos MD Sep 07, 2017 08:35
[2017-09-07] MEDS: ACETAMINOPHEN 325 MG TAB PO PRN ×2 (08:37→13:25)
[2017-09-07] MEDS: SODIUM CHLORIDE 0.9% FLUSH 10 ML FLUSH IV FLUSH SCH ×2 (09:00→22:17)
[2017-09-07] MEDS: RANITIDINE 150 MG PO SCH ×2 (09:00→21:00)
[2017-09-07] MEDS: ONDANSETRON HCL 4 MG/2 ML VIAL IV PUSH SCH ×4 (09:00→20:39)
[2017-09-07] MEDS: NS + KCL 40 MEQ INJ 1,000 ML IV SCH ×2 (10:25→19:00)
[2017-09-07] MEDS: ACETAMIN 325 MG/BUTALBITAL 50 MG/CAFFEINE 40 MG TAB PO PRN (14:39)
--- NOTE | 2017-09-07 15:18 | MB ---
cc: EBONI GARCIA MD DATE OF CONSULTATION 09/07/2017 REASON FOR CONSULTATION Hyperemesis. REQUESTING PHYSICIAN Dr. Avalos. CONSULTING PHYSICIAN Eboni Garcia. HISTORY OF PRESENT ILLNESS A 32-year-old, G2, P1, at 12+ weeks with EDC of March 21, 2018, admitted on September 01, 2017 for hyperemesis. The patient reports that she has had nausea and vomiting in since 7 weeks gestation. She was initially placed on Diclegis. She presented with complaints of increased nausea and vomiting with difficulty tolerating p.o. During her hospitalization she has received Zofran and Reglan and was given a steroid taper course. She reports she did not find any relief of symptoms with the steroids. She reports that her symptoms are improved with the IV Zofran. She reports that she had an episode of vomiting yesterday once. She has been able to tolerate soft foods today such as oatmeal and banana. She reports that the vomiting has improved but still with episodes of nausea which reduces her appetite. She denies any abdominal pain or vaginal bleeding. OBSTETRIC HISTORY 2012 full-term of female infant with weight 7 pounds 15 ounces. GYNECOLOGIC HISTORY No history of cervical dysplasia or sexually transmitted infections. PAST MEDICAL HISTORY Hypothyroidism for which she is currently on Synthroid. This was diagnosed during this . PAST SURGICAL HISTORY Breast augmentation. MEDICATIONS She had been on Phenergan and Diclegis prior to hospitalization. She is currently on IV Zofran and p.o. Zantac and Carafate. FAMILY HISTORY No family history of chromosomal abnormalities, genetic conditions or congenital malformations. SOCIAL HISTORY Denies tobacco, alcohol or drug use. PHYSICAL EXAMINATION VITAL SIGNS: Temperature 97.9, blood pressure 112/69. GENERAL: Alert and oriented, in no acute distress. ABDOMEN: Gravid, soft, nontender. LABORATORY EVALUATION CBC: White blood cell count 7, hemoglobin 11, hematocrit 33, platelet count 171. Chemistry panel: Sodium 138, potassium 3.1, chloride 106, bicarbonate 23.5, BUN 5, creatinine 0.46, glucose 105. ALT 28, AST 17. Hepatitis panel negative. IMAGING She has an ultrasound performed in the testing unit on September 01 and 11 weeks and 2 days. Lenora-rump length was consistent with THOMAS. Cardiac activity and yolk-sac observed. ASSESSMENT AND RECOMMENDATIONS A 32-year-old, G2, P1-0-0-1, at 12 weeks and 1 day with EDC of March 21, 2018 with hyperemesis gravidarum: 1. Continue with Zofran as needed. She is currently on IV Zofran. I encouraged her to try sublingual Zofran to see if she would have relief of her symptoms. 2. Recommend IV/p.o. hydration. 3. Replete potassium. 4. Advance diet as tolerated. 5. Given that she has already had a steroid taper course without relief if she were to have worsening of her symptoms with increase in nausea and vomiting with inability to tolerate p.o., may consider nasogastric tube to see if this will improve her symptoms. The assessment and recommendations were discussed with the patient. All questions were answered and she expressed understanding. Thank you for allowing me to participate in the care of this patient. MD SWETHA Rubio/KARTHIK /2:08 PM /2:46 PM
[2017-09-07] MEDS: MULTIVITAMIN IV SCH (20:41)
[2017-09-07] MEDS: PYRIDOXINE IV SCH (20:41)
[2017-09-07] MEDS: [UNRECOGNIZED DRUG - OTHER] IV SCH (20:41)
[2017-09-07] MEDS: FOLIC ACID IV SCH (20:41)
[2017-09-07] MEDS ORDERED: PYRIDOXINE IV SCH (21:00)
[2017-09-07] MEDS ORDERED: FOLIC ACID IV SCH (21:00)
[2017-09-07] MEDS ORDERED: MULTIVITAMIN IV SCH (21:00)
[2017-09-07] MEDS ORDERED: [UNRECOGNIZED DRUG - OTHER] IV SCH (21:00)
[2017-09-07] MEDS: ZOLPIDEM TARTRATE 5 MG TAB PO PRN (22:14)
[2017-09-08] VITALS (10 sets, daily range): BP systolic 94–126; BP diastolic 58–79; PULSE 66–68; RESP 16–18; TEMP 98.4–99
[2017-09-08] MEDS: ONDANSETRON HCL 4 MG/2 ML VIAL IV PUSH SCH ×3 (01:01→09:00)
[2017-09-08] MEDS: ACETAMINOPHEN 325 MG TAB PO PRN (05:07)
[2017-09-08 06:25] LABS: BICARBONATE 23.3 MEQ/L (21.0-32.0); CALCIUM 7.9 MG/DL (8.5-10.1); CREATININE 0.49 MG/DL (0.50-1.00); MAGNESIUM 1.8 MG/DL (1.5-2.5)
[2017-09-08] MEDS: LEVOTHYROXINE SODIUM 25 MCG TAB PO SCH (06:52)
[2017-09-08] MEDS: METOCLOPRAMIDE HCL SYRUP 10 MG/10 ML UDC PO SCH ×4 (06:52→21:00)
[2017-09-08] MEDS: SUCRALFATE 1 GM/10 ML CUP PO SCH ×4 (07:37→20:13)
[2017-09-08] MEDS: ONDANSETRON ODT 4 MG TAB PO SCH ×4 (09:08→20:58)
--- NOTE | 2017-09-08 09:28 | PD.OB.ANTE ---
Subjective Diagnosis: (1) Severe hyperemesis gravidarum Interval History pt states still having episodes of nausea, no emesis x 24hr, keeping solids down yesterday, planning to eat breakfast. Objective Vital Signs Vital Signs Date Time Temp Pulse Resp B/P (MAP) Pulse Ox O2 Delivery O2 Flow Rate FiO2 09/08/17 05:12 68 94/58 (70) 09/08/17 05:10 98.6 16 09/08/17 00:02 16 09/08/17 00:02 68 126/79 (95) 09/08/17 00:00 98.8 09/07/17 20:05 16 09/07/17 20:04 99.2 09/07/17 20:03 69 118/76 (90) 09/07/17 16:53 16 09/07/17 16:53 97.9 68 111/82 (92) 09/07/17 12:36 97.5 09/07/17 12:35 16 09/07/17 12:35 70 109/66 (80) Lab & Micro Results Test 09/08/17 04:38 Blood Urea Nitrogen 6 MG/DL Creatinine 0.49 MG/DL Random Glucose 79 MG/DL Calcium Level 7.9 MG/DL Magnesium Level 1.8 MG/DL Sodium Level 137 MEQ/L Potassium Level 3.6 MEQ/L Chloride Level 105 MEQ/L Carbon Dioxide Level 23.3 MEQ/L Anion Gap 9 MEQ/L Estimat Glomerular Filtration Rate 147 ML/MIN Physical Exam GENERAL: Well-nourished, well-developed patient. CARDIOVASCULAR: Regular rate and rhythm without murmurs, gallops, or rubs. RESPIRATORY: Breath sounds equal bilaterally. No accessory muscle use. ABDOMEN/GI: Abdomen soft, non-tender. Fundus: [-] GENITOURINARY: External Genitalia: intact and normal in appearance Cervix: [-] Dilatation: [-] Effacement: [-] Station: [-] Presentation: [-] Membranes: [-] Uterine Contractions: [-] FHT's: Category: [-] Baseline: [-] Reactive: [-] Variability: [-] Decels: [-] EXTREMITIES: No cyanosis or edema, non-tender, without signs of DVT. Assessment and Plan Problem List: (1) Severe hyperemesis gravidarum ICD Codes: O21.1 - Hyperemesis gravidarum with metabolic disturbance Status: Acute Assessment and Plan 32 yo with camilo IUP at 12w2 d admit for severe hyperemesis gravidarum since last 09/01/17 1) severe hyperemesis: AM labs normalized, hold IV fluids continue PO vitamin replacement. - Controlled with scheduled meds yesterday, was still getting IV zofran as planned, she feels this works best, will transition to ODT zofran q4h today in addition to scheduled carafate and reglan AC/HS. PRN IV zofran available. Steroids did not help. Likely d/c home tomorrow if asymptomatic throughout today. - Social work following, considered zofran pump by home health but if better with PO meds will not need this. - s/p MFM yesterday 2) IUP: FHTs 150 via bedside US this AM. 3) Subclinical hypothy: normal labs this admission, will continue synthroid 25mcg qd, likely d/c later on. Eliel Thakkar MD Sep 08, 2017 09:28
[2017-09-08] MEDS ORDERED: ONDANSETRON HCL 4 MG/2 ML VIAL IV PUSH PRN (09:30)
[2017-09-08] MEDS: RANITIDINE 150 MG PO SCH ×2 (09:42→21:00)
[2017-09-08] MEDS: SODIUM CHLORIDE 0.9% FLUSH 10 ML FLUSH IV FLUSH SCH ×2 (09:44→20:58)
[2017-09-08] MEDS: ACETAMIN 325 MG/BUTALBITAL 50 MG/CAFFEINE 40 MG TAB PO PRN (15:49)
[2017-09-08] MEDS: DOCUSATE SODIUM 100 MG CAP PO SCH ×2 (16:28→20:59)
[2017-09-09] VITALS (13 sets, daily range): BP systolic 101–116; BP diastolic 57–71; PULSE 63–85; RESP 16–18; TEMP 97.8–98.7
[2017-09-09] MEDS: ZOLPIDEM TARTRATE 5 MG TAB PO PRN (00:24)
[2017-09-09] MEDS: ONDANSETRON ODT 4 MG TAB PO SCH ×4 (00:59→13:00)
[2017-09-09] MEDS: LEVOTHYROXINE SODIUM 25 MCG TAB PO SCH (06:04)
[2017-09-09] MEDS: SUCRALFATE 1 GM/10 ML CUP PO SCH ×4 (07:23→21:00)
[2017-09-09] MEDS: METOCLOPRAMIDE HCL SYRUP 10 MG/10 ML UDC PO SCH ×4 (07:56→22:00)
--- NOTE | 2017-09-09 08:16 | PD.OB.ANTE ---
Subjective Diagnosis: (1) Severe hyperemesis gravidarum Interval History 32 yo mwf at 12 3/7 weeks EGA here with intractable nausea and vomiting. 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 Now hospital day 7 without significant improvement. Still chronically nauseous, which she knows may have to tolerate the nausea but realizes she is chronically dehydrated because she is trying to avoid emesis. Tiny sips of emery fuad are all the fluids she can tolerated. cannot drink water. She thinks carafate and reglan with IV (not ODT) zofran work the best. MFM wanted her to try the ODT zofran before going home with zofran pump and home health. However not staying hydrated and needed the IV zofran last night. Antepartum ROS: Denies: New complaints, Loss of fluid, Vaginal bleeding, movement normal, Contractions, Other Objective Vital Signs Vital Signs Date Time Temp Pulse Resp B/P (MAP) Pulse Ox O2 Delivery O2 Flow Rate FiO2 09/09/17 05:00 16 09/09/17 05:00 97.8 09/09/17 04:57 63 101/62 (75) 09/09/17 00:24 98.1 09/09/17 00:24 16 09/09/17 00:22 72 107/65 (79) 09/08/17 19:36 66 111/70 (84) 09/08/17 19:36 99.0 09/08/17 18:49 68 98/71 (80) 09/08/17 18:48 98.6 09/08/17 18:48 18 09/08/17 15:00 98.4 09/08/17 14:30 18 09/08/17 14:29 66 110/66 (81) Physical Exam GENERAL: Well-nourished, well-developed patient. dry cracked lips CARDIOVASCULAR: Regular rate and rhythm without murmurs, gallops, or rubs. RESPIRATORY: Breath sounds equal bilaterally. No accessory muscle use. ABDOMEN/GI: Abdomen soft, non-tender. Fundus: [-] GENITOURINARY: FHTs good per RN all labs excellent UO 150 yesterday and concentrated EXTREMITIES: No cyanosis or edema, non-tender, without signs of DVT. Assessment and Plan Problem List: (1) Severe hyperemesis gravidarum ICD Codes: O21.1 - Hyperemesis gravidarum with metabolic disturbance Status: Acute Assessment and Plan 32 yo with camilo IUP at 12w2 d admit for severe hyperemesis gravidarum since last 09/01/17 1) severe hyperemesis: AM labs normalized, hold IV fluids continue PO vitamin replacement. - Controlled with scheduled meds yesterday, was still getting IV zofran as planned, she feels this works best, will transition to ODT zofran q4h today in addition to scheduled carafate and reglan AC/HS. PRN IV zofran available. Steroids did not help. Likely d/c home tomorrow if asymptomatic throughout today. - Social work following, considered zofran pump by home health but if better with PO meds will not need this. - s/p MFM yesterday 2) IUP: FHTs 150 via bedside US this AM. 3) Subclinical hypothy: normal labs this admission, will continue synthroid 25mcg qd, likely d/c later on. 09/09/17 0800 As above Required IV zofran last night and not taking adequate oral intake. Will try thorazine and ativan today, but if no increase in oral intake will need PIC line and continuous hydration, zofran pump and possibly PPN. see orders Cleopatra Connor MD Sep 09, 2017 08:16
[2017-09-09] MEDS: SODIUM CHLOR 0.45% 1000 ML INJ 1,000 ML IV SCH (08:30)
[2017-09-09] MEDS ORDERED: LORazepam 2 MG/ML VIAL IV PUSH ONE (08:30)
[2017-09-09] MEDS: SODIUM CHLORIDE 0.9% FLUSH 10 ML FLUSH IV FLUSH SCH ×2 (09:00→22:02)
[2017-09-09] MEDS: RANITIDINE 150 MG PO SCH ×2 (09:00→21:00)
[2017-09-09] MEDS: DOCUSATE SODIUM 100 MG CAP PO SCH ×2 (09:01→22:01)
[2017-09-09] MEDS: chlorproMAZINE HCL 25 MG TAB PO SCH ×3 (09:02→21:00)
--- NOTE | 2017-09-09 16:26 | HHI.PR ---
Subjective Remarks I am still sick. I tried the medicines Dr Cardona wanted to try. The only medicine that helps is IV Zofran. I feel very dehydrated. Objective Vital Signs Date Time Temp Pulse Resp B/P (MAP) Pulse Ox O2 Delivery O2 Flow Rate FiO2 09/09/17 12:00 18 09/09/17 11:44 82 107/57 (74) 09/09/17 08:17 98.1 09/09/17 08:17 98.7 09/09/17 08:16 16 09/09/17 08:09 70 116/71 (86) 09/09/17 05:00 16 09/09/17 05:00 97.8 09/09/17 04:57 63 101/62 (75) 09/09/17 00:24 98.1 09/09/17 00:24 16 09/09/17 00:22 72 107/65 (79) 09/08/17 19:36 66 111/70 (84) 09/08/17 19:36 99.0 09/08/17 18:49 68 98/71 (80) 09/08/17 18:48 98.6 09/08/17 18:48 18 Result Diagram: 09/08/17 0438 Other Results Dry mucus membranes Skin turgor is poor Assessment and Plan Problem List: (1) Hyperemesis complicating , antepartum ICD Codes: O21.0 - Mild hyperemesis gravidarum Status: Acute Assessment and Plan 1. Intrauterine at 11 weeks 2. Severe nausea and vomiting of Will get IV bolus now and restart the IV zofran. Do not feel she needs a PICC line and may get away with a midline. Consider home health. Georgiana Paiz MD Sep 09, 2017 16:26
[2017-09-09] MEDS ORDERED: LACTATED RINGER'S 1000 ML INJ 1,000 ML IV ONE (16:30)
[2017-09-09] MEDS: LACTATED RINGER'S 1000 ML INJ 1,000 ML IV SCH (16:30)
[2017-09-09] MEDS: ONDANSETRON HCL 4 MG/2 ML VIAL IV PUSH SCH (17:34)
[2017-09-09] MEDS: SIMETHICONE 80 MG CHEWABLE TAB PO PRN (22:00)
[2017-09-09] MEDS: ACETAMINOPHEN 325 MG TAB PO PRN (23:06)
[2017-09-10] VITALS (8 sets, daily range): BP systolic 98–130; BP diastolic 61–66; PULSE 66–67; RESP 18; TEMP 98–98.3
[2017-09-10] MEDS: LACTATED RINGER'S 1000 ML INJ 1,000 ML IV SCH ×3 (00:07→16:51)
[2017-09-10] MEDS: ZOLPIDEM TARTRATE 5 MG TAB PO PRN ×2 (00:08→22:30)
[2017-09-10] MEDS: ONDANSETRON HCL 4 MG/2 ML VIAL IV PUSH SCH ×2 (00:08→06:05)
[2017-09-10] MEDS: SODIUM CHLOR 0.45% 1000 ML INJ 1,000 ML IV SCH ×3 (00:30→16:30)
[2017-09-10] MEDS: chlorproMAZINE HCL 25 MG TAB PO SCH ×4 (03:00→21:00)
[2017-09-10] MEDS: LEVOTHYROXINE SODIUM 25 MCG TAB PO SCH (06:06)
[2017-09-10] MEDS: SUCRALFATE 1 GM/10 ML CUP PO SCH ×3 (07:57→18:31)
[2017-09-10] MEDS: SODIUM CHLORIDE 0.9% FLUSH 10 ML FLUSH IV FLUSH SCH ×2 (09:00→21:00)
[2017-09-10] MEDS: METOCLOPRAMIDE HCL SYRUP 10 MG/10 ML UDC PO SCH ×4 (10:00→21:00)
[2017-09-10] MEDS: RANITIDINE 150 MG PO SCH ×2 (10:26→21:00)
[2017-09-10] MEDS: DOCUSATE SODIUM 100 MG CAP PO SCH ×2 (10:26→21:00)
--- NOTE | 2017-09-10 10:48 | PD.OB.ANTE ---
Subjective Diagnosis: (1) Severe hyperemesis gravidarum Interval History HD 10 She has not had emesis since yesterday. She ate some solid food last night and this am. She still has difficulty with any liquids did not like how thorazine made her feel, nor did it reduce nausea declined ativan. to date only the IV zofran has worked but now willing to try ODT zofran again since holding some food down Objective Vital Signs Vital Signs Date Time Temp Pulse Resp B/P (MAP) Pulse Ox O2 Delivery O2 Flow Rate FiO2 09/10/17 06:10 98.3 18 09/10/17 06:09 66 98/61 (73) 09/10/17 00:16 18 09/10/17 00:15 67 110/65 (80) 09/10/17 00:09 16 09/09/17 22:04 77 09/09/17 21:59 75 09/09/17 21:57 97.9 18 09/09/17 21:53 85 113/64 (80) 09/09/17 12:00 18 09/09/17 11:44 82 107/57 (74) Physical Exam GENERAL: Well-nourished, well-developed patient. CARDIOVASCULAR: Regular rate and rhythm without murmurs, gallops, or rubs. RESPIRATORY: Breath sounds equal bilaterally. No accessory muscle use. ABDOMEN/GI: Abdomen soft, non-tender. Fundus: [-] GENITOURINARY: External Genitalia: intact and normal in appearance Cervix: [-] Dilatation: [-] Effacement: [-] Station: [-] Presentation: [-] Membranes: [-] Uterine Contractions: [-] FHT's: Category: [-] Baseline: [-] Reactive: [-] Variability: [-] Decels: [-] EXTREMITIES: No cyanosis or edema, non-tender, without signs of DVT. Assessment and Plan Problem List: (1) Severe hyperemesis gravidarum ICD Codes: O21.1 - Hyperemesis gravidarum with metabolic disturbance Status: Acute Assessment and Plan 32 yo with camilo IUP at 12w2 d admit for severe hyperemesis gravidarum since last 09/01/17 1) severe hyperemesis: AM labs normalized, hold IV fluids continue PO vitamin replacement. - Controlled with scheduled meds yesterday, was still getting IV zofran as planned, she feels this works best, will transition to ODT zofran q4h today in addition to scheduled carafate and reglan AC/HS. PRN IV zofran available. Steroids did not help. Likely d/c home tomorrow if asymptomatic throughout today. - Social work following, considered zofran pump by home health but if better with PO meds will not need this. - s/p MFM yesterday 2) IUP: FHTs 150 via bedside US this AM. 3) Subclinical hypothy: normal labs this admission, will continue synthroid 25mcg qd, likely d/c later on. 09/09/17 0800 As above Required IV zofran last night and not taking adequate oral intake. Will try thorazine and ativan today, but if no increase in oral intake will need PIC line and continuous hydration, zofran pump and possibly PPN. see orders 09/10/17 10:30 she would like to try ODT zofran at noon and if tolerates home with that on Tuesday. If not, back to IV zofran and probably home health Cleopatra Connor MD Sep 10, 2017 10:48
[2017-09-10] MEDS ORDERED: ONDANSETRON ODT 4 MG TAB PO SCH (11:00)
[2017-09-10] MEDS: ACETAMINOPHEN 325 MG TAB PO PRN (11:27)
[2017-09-10] MEDS: ACETAMIN 325 MG/BUTALBITAL 50 MG/CAFFEINE 40 MG TAB PO PRN (13:21)
[2017-09-10] MEDS ORDERED: ONDANSETRON HCL 4 MG/2 ML VIAL IV PUSH PRN (17:00)
[2017-09-10] MEDS: ONDANSETRON HCL 4 MG/2 ML VIAL IV PUSH PRN ×2 (17:03→22:30)
[2017-09-10] MEDS: SIMETHICONE 80 MG CHEWABLE TAB PO PRN (17:24)
[2017-09-11] VITALS (8 sets, daily range): BP systolic 108–119; BP diastolic 63–70; PULSE 66–70; RESP 18–20; TEMP 97.9–98.4
[2017-09-11] MEDS: SODIUM CHLOR 0.45% 1000 ML INJ 1,000 ML IV SCH ×3 (00:30→16:30)
[2017-09-11] MEDS: LACTATED RINGER'S 1000 ML INJ 1,000 ML IV SCH ×3 (00:30→20:00)
[2017-09-11] MEDS: chlorproMAZINE HCL 25 MG TAB PO SCH ×4 (03:00→21:00)
[2017-09-11] MEDS: LEVOTHYROXINE SODIUM 25 MCG TAB PO SCH (06:00)
[2017-09-11] MEDS: SUCRALFATE 1 GM/10 ML CUP PO SCH ×5 (07:40→21:02)
[2017-09-11] MEDS: ACETAMIN 325 MG/BUTALBITAL 50 MG/CAFFEINE 40 MG TAB PO PRN ×2 (08:52→17:53)
[2017-09-11] MEDS: DOCUSATE SODIUM 100 MG CAP PO SCH ×2 (08:52→21:02)
[2017-09-11] MEDS: METOCLOPRAMIDE HCL SYRUP 10 MG/10 ML UDC PO SCH ×4 (08:52→21:00)
[2017-09-11] MEDS: RANITIDINE 150 MG PO SCH ×2 (08:54→21:00)
[2017-09-11] MEDS: SODIUM CHLORIDE 0.9% FLUSH 10 ML FLUSH IV FLUSH SCH ×2 (09:00→21:00)
--- NOTE | 2017-09-11 09:47 | PD.OB.ANTE ---
Subjective Diagnosis: (1) Severe hyperemesis gravidarum Interval History 12 and 5/7 weeks severe hyper emesis with ongoing intolerance of liquids and need for IV zofran trail of ODT zofran yesterday was not tolerated but tolerating increasing amounts of solid food with no emesis in 36 hours and chronic low level nausea only (if she takes her IV zofran) goal to send home on IV hydration, IV zofran and encourage her intake of oral solids and liquids Objective Vital Signs Vital Signs Date Time Temp Pulse Resp B/P (MAP) Pulse Ox O2 Delivery O2 Flow Rate FiO2 09/11/17 07:43 98.1 18 09/11/17 07:42 67 112/64 (80) 09/10/17 20:02 67 130/65 (86) 09/10/17 20:00 98.0 18 09/10/17 12:46 67 113/66 (82) 09/10/17 12:45 18 Physical Exam GENERAL: Well-nourished, well-developed patient. CARDIOVASCULAR: Regular rate and rhythm without murmurs, gallops, or rubs. RESPIRATORY: Breath sounds equal bilaterally. No accessory muscle use. ABDOMEN/GI: Abdomen soft, non-tender. EXTREMITIES: No cyanosis or edema, non-tender, without signs of DVT. midline access appears good with no infection Assessment and Plan Problem List: (1) Severe hyperemesis gravidarum ICD Codes: O21.1 - Hyperemesis gravidarum with metabolic disturbance Status: Acute Assessment and Plan 32 yo with camilo IUP at 12w2 d admit for severe hyperemesis gravidarum since last 09/01/17 1) severe hyperemesis: AM labs normalized, hold IV fluids continue PO vitamin replacement. - Controlled with scheduled meds yesterday, was still getting IV zofran as planned, she feels this works best, will transition to ODT zofran q4h today in addition to scheduled carafate and reglan AC/HS. PRN IV zofran available. Steroids did not help. Likely d/c home tomorrow if asymptomatic throughout today. - Social work following, considered zofran pump by home health but if better with PO meds will not need this. - s/p MFM yesterday 2) IUP: FHTs 150 via bedside US this AM. 3) Subclinical hypothy: normal labs this admission, will continue synthroid 25mcg qd, likely d/c later on. 09/09/17 0800 As above Required IV zofran last night and not taking adequate oral intake. Will try thorazine and ativan today, but if no increase in oral intake will need PIC line and continuous hydration, zofran pump and possibly PPN. see orders 09/10/17 10:30 she would like to try ODT zofran at noon and if tolerates home with that on Tuesday. If not, back to IV zofran and probably home health 09/11/17 09:30 Goal is tomorrow home on the pump with home health Alternatively intermittent scheduled IV zofran through midline may be easier Cleopatra Connor MD Sep 11, 2017 09:47
[2017-09-11] MEDS ORDERED: Non-Formulary Drug PO (09:56)
[2017-09-11] MEDS ORDERED: SUCR1S PO (09:56)
[2017-09-11] MEDS ORDERED: Metoclopramide Liq PO (09:56)
--- NOTE | 2017-09-11 09:57 | HHI.DCPOC ---
Discharge Care Plan Additional Problems need home health Report Symptoms to Your Doctor -Temperature above 100.5 degrees -Redness, of incision or excessive or foul smelling drainage -Unusual pain or calf pain -Increased vaginal bleeding -Painful or difficulty urinating -Feelings of extreme sadness or anxiety after 2 weeks Goals to Promote Your Health * To prevent worsening of your condition and complications * To maintain your health at the optimal level Directions to Meet Your Goals Take your medications as prescribed Follow your dietary instruction Follow activity as directed Ensure plenty of rest for recovery Drink fluids for hydration Keep your appointments as scheduled Take your immunizations and boosters as scheduled If your symptoms worsen call your PCP, if no PCP go to Urgent Care Center or Emergency Room Smoking is Dangerous to Your Health. Avoid second hand smoke Call the 24-hour crisis hotline for domestic abuse at Cleopatra Connor MD Sep 11, 2017 09:57
[2017-09-11] MEDS: SIMETHICONE 80 MG CHEWABLE TAB PO PRN (12:27)
[2017-09-11] MEDS: ONDANSETRON HCL 4 MG/2 ML VIAL IV PUSH PRN ×2 (12:27→18:07)
[2017-09-11] MEDS ORDERED: ONDANSETRON HCL 4 MG/2 ML VIAL ONE (18:04)
[2017-09-11] MEDS: ZOLPIDEM TARTRATE 5 MG TAB PO PRN (22:40)
[2017-09-12] VITALS (17 sets, daily range): BP systolic 107–113; BP diastolic 61–66; PULSE 65–72; RESP 16–18; TEMP 98–99
[2017-09-12] MEDS: LACTATED RINGER'S 1000 ML INJ 1,000 ML IV SCH ×3 (06:25→12:25)
[2017-09-12] MEDS: LEVOTHYROXINE SODIUM 25 MCG TAB PO SCH (06:25)
[2017-09-12] MEDS: ONDANSETRON HCL 4 MG/2 ML VIAL IV PUSH PRN ×3 (06:26→18:31)
[2017-09-12] MEDS: SUCRALFATE 1 GM/10 ML CUP PO SCH ×4 (08:05→21:07)
[2017-09-12] MEDS: METOCLOPRAMIDE HCL SYRUP 10 MG/10 ML UDC PO SCH ×4 (08:05→21:00)
--- NOTE | 2017-09-12 08:39 | PD.OB.ANTE ---
Subjective Diagnosis: (1) Severe hyperemesis gravidarum Interval History 12 6/7 weeks; no significant change ,remains nauseas , missed midnight ZOFRAN dose. Objective Vital Signs Vital Signs Date Time Temp Pulse Resp B/P (MAP) Pulse Ox O2 Delivery O2 Flow Rate FiO2 09/12/17 06:29 65 107/65 (79) 09/12/17 06:28 98.7 09/12/17 06:28 18 09/12/17 04:39 16 09/12/17 03:00 16 09/12/17 01:00 18 09/11/17 23:00 98.4 09/11/17 22:57 70 18 108/66 (80) 09/11/17 20:07 97.9 20 09/11/17 19:56 20 09/11/17 17:58 18 09/11/17 17:58 70 112/63 (79) 09/11/17 12:37 98.3 18 09/11/17 12:31 66 119/70 (86) Physical Exam GENERAL: Well-nourished, well-developed patient. CARDIOVASCULAR: Regular rate and rhythm without murmurs, gallops, or rubs. RESPIRATORY: Breath sounds equal bilaterally. No accessory muscle use. ABDOMEN/GI: Abdomen soft, non-tender. FHT's:140-150 EXTREMITIES: No cyanosis or edema, non-tender, without signs of DVT. Assessment and Plan Problem List: (1) Severe hyperemesis gravidarum ICD Codes: O21.1 - Hyperemesis gravidarum with metabolic disturbance Status: Acute Assessment and Plan 32 yo with camilo IUP at 12w 6d admit for severe hyperemesis gravidarum since last 09/01/17 1. HEG, severe. does well with scheduled iv ZOFRAN. Will attempt to go home on IV fluids AND ZOFRAN. Case management is aware and working on home iv therapy. Rishi Borden MD Sep 12, 2017 08:39
[2017-09-12] MEDS: RANITIDINE 150 MG PO SCH ×2 (09:00→21:00)
[2017-09-12] MEDS: SODIUM CHLORIDE 0.9% FLUSH 10 ML FLUSH IV FLUSH SCH (09:00)
[2017-09-12] MEDS: DOCUSATE SODIUM 100 MG CAP PO SCH ×2 (09:47→21:07)
[2017-09-12] MEDS: ACETAMIN 325 MG/BUTALBITAL 50 MG/CAFFEINE 40 MG TAB PO PRN (11:03)
[2017-09-12] MEDS: ACETAMINOPHEN 325 MG TAB PO PRN (12:31)
[2017-09-12] MEDS: SIMETHICONE 80 MG CHEWABLE TAB PO PRN (14:15)
--- NOTE | 2017-09-12 17:31 | PD.OB.ANTE ---
Subjective Diagnosis: (1) Severe hyperemesis gravidarum Diagnosis: Principal Interval History Relapse of severe, intractable nausea with emesis despite IV zofran . Complains of orthostatic symptoms Will need to hold discharge, DOES NOT MEET CRITERIA Objective Vital Signs Vital Signs Date Time Temp Pulse Resp B/P (MAP) Pulse Ox O2 Delivery O2 Flow Rate FiO2 09/12/17 16:40 70 113/62 (79) 09/12/17 16:39 98.9 16 09/12/17 15:00 98.5 09/12/17 15:00 16 09/12/17 14:09 72 113/61 (78) 09/12/17 12:39 17 09/12/17 11:00 17 09/12/17 09:05 98.0 17 09/12/17 09:03 69 110/66 (81) 09/12/17 09:00 16 09/12/17 06:29 65 107/65 (79) 09/12/17 06:28 98.7 09/12/17 06:28 18 09/12/17 04:39 16 09/12/17 03:00 16 09/12/17 01:00 18 09/11/17 23:00 98.4 09/11/17 22:57 70 18 108/66 (80) 09/11/17 20:07 97.9 20 09/11/17 19:56 20 09/11/17 17:58 18 09/11/17 17:58 70 112/63 (79) Physical Exam GENERAL: Ill appearing, well-developed patient. CARDIOVASCULAR: Regular rate and rhythm without murmurs, gallops, or rubs. RESPIRATORY: Breath sounds equal bilaterally. No accessory muscle use. ABDOMEN/GI: Abdomen soft, non-tender EXTREMITIES: No cyanosis or edema, non-tender, without signs of DVT. Assessment and Plan Problem List: (1) Severe hyperemesis gravidarum ICD Codes: O21.1 - Hyperemesis gravidarum with metabolic disturbance Status: Acute Assessment and Plan 32 yo with camilo IUP at 12w 6d admit for severe hyperemesis gravidarum since last 09/01/17 Recurrent ,episodic N/V with postural hypotension/orthostasis . Will increase IV hydration, HOLD discharge ,re-evaluate in the AM. Rishi Borden MD Sep 12, 2017 17:31
[2017-09-12] MEDS ORDERED: SODIUM CHLORID 0.9% 500 ML INJ 500 ML IV ONE (17:45)
[2017-09-12] MEDS ORDERED: SODIUM CHLOR 0.9% 1000 ML INJ 1,000 ML IV ONE (19:00)
[2017-09-12] MEDS: ZOLPIDEM TARTRATE 5 MG TAB PO PRN (21:07)
[2017-09-13] VITALS (10 sets, daily range): BP systolic 107–117; BP diastolic 64–74; PULSE 63–72; RESP 16–18; TEMP 97.7–98.8
[2017-09-13] MEDS: LACTATED RINGER'S 1000 ML INJ 1,000 ML IV SCH ×3 (00:16→16:30)
[2017-09-13] MEDS: ONDANSETRON HCL 4 MG/2 ML VIAL IV PUSH PRN ×3 (00:16→18:44)
[2017-09-13] MEDS: LEVOTHYROXINE SODIUM 25 MCG TAB PO SCH (05:51)
[2017-09-13] MEDS: SUCRALFATE 1 GM/10 ML CUP PO SCH ×4 (08:24→22:10)
--- NOTE | 2017-09-13 08:27 | PD.OB.ANTE ---
Subjective Diagnosis: (1) Severe hyperemesis gravidarum Diagnosis: Principal Interval History yesterday had a very bad day; had missed her midnight IV Zofran dose Tuesday evening/Tuesday AM and states all day yesterday was dry heaving and unable to tolerate po intake; discharge was held yesterday due to this; today states feeling slightly better, has not yet attempted to eat breakfast Antepartum ROS: Denies: New complaints, Loss of fluid, Vaginal bleeding, Contractions, Other Objective Vital Signs Vital Signs Date Time Temp Pulse Resp B/P (MAP) Pulse Ox O2 Delivery O2 Flow Rate FiO2 09/13/17 01:34 16 09/12/17 21:00 99.0 09/12/17 21:00 16 09/12/17 20:33 68 112/63 (79) 09/12/17 19:48 16 09/12/17 16:40 70 113/62 (79) 09/12/17 16:39 98.9 16 09/12/17 15:00 98.5 09/12/17 15:00 16 09/12/17 14:09 72 113/61 (78) 09/12/17 12:39 17 09/12/17 11:00 17 09/12/17 09:05 98.0 17 09/12/17 09:03 69 110/66 (81) 09/12/17 09:00 16 Physical Exam GENERAL: tired appearance CARDIOVASCULAR: Regular rate and rhythm without murmurs, gallops, or rubs. RESPIRATORY: Breath sounds equal bilaterally. No accessory muscle use. ABDOMEN/GI: Abdomen soft, non-tender. Fundus: [c/w dates, beneath symphysis] GENITOURINARY: External Genitalia: deferred EXTREMITIES: No cyanosis or edema, non-tender, without signs of DVT. Assessment and Plan Problem List: (1) Severe hyperemesis gravidarum ICD Codes: O21.1 - Hyperemesis gravidarum with metabolic disturbance Status: Acute Assessment and Plan 32 yo with camilo IUP at 13w0d admit for severe hyperemesis gravidarum since 09/01/17; hospital day #13 on 09/13/17 Recurrent ,episodic N/V with postural hypotension/orthostasis; seems to only improve if strictly scheduled IV Zofran q6h change order to scheduled instead of prn for IV Zofran will contact case management today to discuss hopeful discharge early tomorrow ( 09/14/17) AM so that Zofran pump can be set up prior to Noon scheduled IV dose will also need IV fluids 3x's/week and dressing change to midline IV above R antecubital, will make sure to clarify with home health order due to poor intake over past 3 weeks ordered IV thiamin 100mg today; also IV vitamin bag for this afternoon will recheck labs/electrolytes as well as TFTs to ensure not missing anything prior to discharge NOT currently meeting discharge criteria; if able to tolerate po today & if labs normal will consider d/c for tomorrow 09/14/17 Zara Avalos MD Sep 13, 2017 08:27
[2017-09-13] MEDS ORDERED: THIAMINE INJ 100 MG in SODIUM CHLORIDE 0.9% INJ 100 ML IV SCH (09:00)
[2017-09-13] MEDS: SODIUM CHLORIDE 0.9% FLUSH 10 ML FLUSH IV FLUSH SCH ×2 (09:00→21:00)
[2017-09-13] MEDS ORDERED: POLYETHYLENE GLYCOL 17 GM PKG PO ONE (09:00)
[2017-09-13] MEDS: METOCLOPRAMIDE HCL SYRUP 10 MG/10 ML UDC PO SCH ×4 (09:43→22:11)
[2017-09-13 10:45] LABS: HEMATOCRIT 34.1 % (35.0-46.0); HEMOGLOBIN 11.6 GM/DL (11.6-15.3); MEAN CORPUSCULAR HEMOGLOBIN 29.7 PG (27.0-34.0); MEAN CORPUSCULAR HGB CONC 34.1 % (32.0-36.0); MEAN PLATELET VOLUME 8.8 FL (7.0-11.0); PLATELET COUNT 162 TH/MM3 (150-450); RED BLOOD COUNT 3.92 MIL/MM3 (4.00-5.30); RED CELL DISTRIBUTION WIDTH 13.1 % (11.6-17.2); WHITE BLOOD COUNT 6.7 TH/MM3 (4.0-11.0)
[2017-09-13] MEDS: [UNRECOGNIZED DRUG - OTHER] IV SCH (11:00)
[2017-09-13] MEDS: FOLIC ACID IV SCH (11:00)
[2017-09-13] MEDS: MULTIVITAMIN IV SCH (11:00)
[2017-09-13] MEDS: PYRIDOXINE IV SCH (11:00)
[2017-09-13 11:02] LABS: ALBUMIN 3.1 GM/DL (3.4-5.0); ALT (GPT) 16 U/L (10-53); AMYLASE 41 U/L (25-115); AST (GOT) 9 U/L (15-37); BICARBONATE 22.9 MEQ/L (21.0-32.0); BLOOD UREA NITROGEN 6 MG/DL (7-18); CALCIUM 8.5 MG/DL (8.5-10.1); CHLORIDE 104 MEQ/L (98-107); CREATININE 0.49 MG/DL (0.50-1.00); GLOMERULAR FILTRATION RATE 147 ML/MIN (>89); GLUCOSE,RANDOM 108 MG/DL (74-106); LIPASE 136 U/L (73-393); SODIUM (NA) 136 MEQ/L (136-145)
[2017-09-13 11:12] LABS: ALKALINE PHOSPHATASE 44 U/L (45-117); FREE T4 0.96 NG/DL (0.76-1.46); TOTAL BILIRUBIN ADULT 0.2 MG/DL (0.2-1.0); TOTAL PROTEIN 6.6 GM/DL (6.4-8.2)
[2017-09-13] MEDS: RANITIDINE 150 MG PO SCH ×2 (12:30→21:00)
[2017-09-13] MEDS: DOCUSATE SODIUM 100 MG CAP PO SCH ×2 (12:30→22:11)
[2017-09-13] MEDS: ACETAMIN 325 MG/BUTALBITAL 50 MG/CAFFEINE 40 MG TAB PO PRN (14:03)
[2017-09-13] MEDS ORDERED: ACETAMIN 325 MG/BUTALBITAL 50 MG/CAFFEINE 40 MG TAB PO ONE (16:00)
--- NOTE | 2017-09-13 16:19 | PD.OB.ANTE ---
Subjective Diagnosis: (1) Severe hyperemesis gravidarum Diagnosis: Principal Interval History interval update: pt again had episode of severe dry-heaving/emesis (bilious) between 1130A-1230P today; just tried eat piece of chicken strip; keeping down for now; IV vitamin bag running; thinks felt worse after IV thiamine bag infused (only change in medication today); also c/o headache, not relieved with single fioricet 2 h ago, requests 2nd tablet Objective Vital Signs Vital Signs Date Time Temp Pulse Resp B/P (MAP) Pulse Ox O2 Delivery O2 Flow Rate FiO2 09/13/17 11:04 98.8 18 09/13/17 11:01 65 116/64 (81) 09/13/17 08:28 18 09/13/17 08:28 98.5 09/13/17 08:19 67 111/73 (86) 09/13/17 01:34 16 09/12/17 21:00 99.0 09/12/17 21:00 16 09/12/17 20:33 68 112/63 (79) 09/12/17 19:48 16 09/12/17 16:40 70 113/62 (79) 09/12/17 16:39 98.9 16 Lab & Micro Results Test 09/13/17 10:09 White Blood Count 6.7 TH/MM3 Red Blood Count 3.92 MIL/MM3 Hemoglobin 11.6 GM/DL Hematocrit 34.1 % Mean Corpuscular Volume 87.0 FL Mean Corpuscular Hemoglobin 29.7 PG Mean Corpuscular Hemoglobin Concent 34.1 % Red Cell Distribution Width 13.1 % Platelet Count 162 TH/MM3 Mean Platelet Volume 8.8 FL Blood Urea Nitrogen 6 MG/DL Creatinine 0.49 MG/DL Random Glucose 108 MG/DL Total Protein 6.6 GM/DL Albumin 3.1 GM/DL Calcium Level 8.5 MG/DL Alkaline Phosphatase 44 U/L Aspartate Amino Transf (AST/SGOT) 9 U/L Alanine Aminotransferase (ALT/SGPT) 16 U/L Total Bilirubin 0.2 MG/DL Sodium Level 136 MEQ/L Potassium Level 3.3 MEQ/L Chloride Level 104 MEQ/L Carbon Dioxide Level 22.9 MEQ/L Anion Gap 9 MEQ/L Estimat Glomerular Filtration Rate 147 ML/MIN Amylase Level 41 U/L Lipase 136 U/L Free Thyroxine 0.96 NG/DL Thyroid Stimulating Hormone 3rd Gen 1.760 uIU/ML Physical Exam GENERAL: Tired appearance, laying in bed. CARDIOVASCULAR: Regular rate and rhythm without murmurs, gallops, or rubs. RESPIRATORY: Breath sounds equal bilaterally. No accessory muscle use. ABDOMEN/GI: Abdomen soft, non-tender. Fundus: below symphysis GENITOURINARY: deferred EXTREMITIES: No cyanosis or edema, non-tender, without signs of DVT. Assessment and Plan Problem List: (1) Severe hyperemesis gravidarum ICD Codes: O21.1 - Hyperemesis gravidarum with metabolic disturbance Status: Acute Assessment and Plan 32 yo with camilo IUP at 13w0d admit for severe hyperemesis gravidarum since 09/01/17; hospital day #13 on 09/13/17 symptoms worsened today after IV thiamine given; headache since violent dry- heaving episode, just now trying to tolerate po otherwise has been unable to keep down any po intake today continue scheduled IV zofran 8mg q6h labs showed K 3.3, replacement ordered, will start infusing after IV vitamin bag finishes; will recheck in AM contacted case management today, discussed hopeful discharge early tomorrow () AM so that Zofran pump can be set up prior to Noon scheduled IV dose; will d/c IF pt without emesis overnight and if AM labs normalize also ordered IV fluids with multivitamin bag 3x's/week and dressing change weekly to midline IV above R antecubital, all home health orders clarified today TFTs wnl; TPO pending; continue synthroid dose for now NOT currently meeting discharge criteria; if able to tolerate po for rest of today & if labs normal in AM will consider d/c for tomorrow 09/14/17 Zara Avalos MD Sep 13, 2017 16:19
[2017-09-13] MEDS: POTASSIUM CHLOR 20 MEQ PREMIX 100 ML IV SCH (21:00)
[2017-09-13] MEDS: ZOLPIDEM TARTRATE 5 MG TAB PO PRN (23:39)
[2017-09-14] MEDS: POTASSIUM CHLOR 20 MEQ PREMIX 100 ML IV SCH (00:30)
[2017-09-14] MEDS: LEVOTHYROXINE SODIUM 25 MCG TAB PO SCH (06:22)
[2017-09-14] MEDS: ONDANSETRON HCL 4 MG/2 ML VIAL IV PUSH PRN ×2 (06:23→12:39)
[2017-09-14] MEDS: LACTATED RINGER'S 1000 ML INJ 1,000 ML IV SCH (06:24)
[2017-09-14 08:00] VITALS: RESP 17; TEMP 98
[2017-09-14] MEDS: SUCRALFATE 1 GM/10 ML CUP PO SCH ×2 (08:13→11:18)
[2017-09-14] MEDS: METOCLOPRAMIDE HCL SYRUP 10 MG/10 ML UDC PO SCH ×2 (08:13→12:00)
[2017-09-14] MEDS: RANITIDINE 150 MG PO SCH (08:13)
[2017-09-14] MEDS: SODIUM CHLORIDE 0.9% FLUSH 10 ML FLUSH IV FLUSH SCH (08:14)
[2017-09-14 08:19] VITALS: BP 101/64; PULSE 66
--- NOTE | 2017-09-14 08:26 | PD.OB.ANTE ---
Subjective Diagnosis: (1) Severe hyperemesis gravidarum Diagnosis: Principal Interval History no vomiting overnight, will have IV team re-evaluate access site which was leaking Objective Vital Signs Vital Signs Date Time Temp Pulse Resp B/P (MAP) Pulse Ox O2 Delivery O2 Flow Rate FiO2 09/13/17 23:40 98.1 16 09/13/17 23:37 63 113/64 (80) 09/13/17 18:43 63 117/74 (88) 09/13/17 17:18 18 09/13/17 17:17 97.7 72 107/72 (84) 09/13/17 11:04 98.8 18 09/13/17 11:01 65 116/64 (81) 09/13/17 08:28 18 09/13/17 08:28 98.5 Lab & Micro Results Test 09/13/17 10:09 White Blood Count 6.7 TH/MM3 Red Blood Count 3.92 MIL/MM3 Hemoglobin 11.6 GM/DL Hematocrit 34.1 % Mean Corpuscular Volume 87.0 FL Mean Corpuscular Hemoglobin 29.7 PG Mean Corpuscular Hemoglobin Concent 34.1 % Red Cell Distribution Width 13.1 % Platelet Count 162 TH/MM3 Mean Platelet Volume 8.8 FL Blood Urea Nitrogen 6 MG/DL Creatinine 0.49 MG/DL Random Glucose 108 MG/DL Total Protein 6.6 GM/DL Albumin 3.1 GM/DL Calcium Level 8.5 MG/DL Alkaline Phosphatase 44 U/L Aspartate Amino Transf (AST/SGOT) 9 U/L Alanine Aminotransferase (ALT/SGPT) 16 U/L Total Bilirubin 0.2 MG/DL Sodium Level 136 MEQ/L Potassium Level 3.3 MEQ/L Chloride Level 104 MEQ/L Carbon Dioxide Level 22.9 MEQ/L Anion Gap 9 MEQ/L Estimat Glomerular Filtration Rate 147 ML/MIN Amylase Level 41 U/L Lipase 136 U/L Free Thyroxine 0.96 NG/DL Thyroid Stimulating Hormone 3rd Gen 1.760 uIU/ML Physical Exam GENERAL: Well-nourished, well-developed patient. CARDIOVASCULAR: Regular rate and rhythm without murmurs, gallops, or rubs. RESPIRATORY: Breath sounds equal bilaterally. No accessory muscle use. ABDOMEN/GI: Abdomen soft, non-tender. Fundus: [-] GENITOURINARY: External Genitalia: intact and normal in appearance Cervix: [-] exam deferred Dilatation: [-] Effacement: [-] Station: [-] Presentation: [-] Membranes: [-] Uterine Contractions: [-] FHT's: Category: [-] Baseline: [-] Reactive: [-] Variability: [-] Decels: [-] EXTREMITIES: No cyanosis or edema, non-tender, without signs of DVT. Assessment and Plan Problem List: (1) Severe hyperemesis gravidarum ICD Codes: O21.1 - Hyperemesis gravidarum with metabolic disturbance Status: Acute Assessment and Plan 32 yo with camilo IUP at 13w1d admit for severe hyperemesis gravidarum since 09/01/17; hospital day #14 on 09/14/17 no vomiting overnight continue scheduled IV zofran 8mg q6h IV team to re-evaluate rt access site which was leaking last night case management involved, discussed hopeful discharge today (09/14/17) AM so that Zofran pump can be set up prior to Noon scheduled IV dose; will d/c after IV site evaluated, possible change also ordered IV fluids with multivitamin bag 3x's/week and dressing change weekly to midline IV above R antecubital TFTs wnl; TPO pending; continue synthroid dose for now Kaela Cunha MD Sep 14, 2017 08:26
[2017-09-14 10:00] VITALS: RESP 17
[2017-09-14] MEDS: ACETAMIN 325 MG/BUTALBITAL 50 MG/CAFFEINE 40 MG TAB PO PRN (10:27)
[2017-09-14] MEDS: DOCUSATE SODIUM 100 MG CAP PO SCH (10:28)
[2017-09-14] MEDS: MULTIVITAMIN IV SCH (11:19)
[2017-09-14] MEDS: PYRIDOXINE IV SCH (11:19)
[2017-09-14] MEDS: [UNRECOGNIZED DRUG - OTHER] IV SCH (11:19)
[2017-09-14] MEDS: FOLIC ACID IV SCH (11:19)
--- NOTE | 2017-09-14 12:20 | RADRPT ---
EXAM DATE/TIME: 09/14/2017 11:42 [facility] COMPARISON: No previous studies available for comparison. INDICATIONS : Right arm swelling. MEDICAL HISTORY : Thyroid disease. Kidney reflux as child. SURGICAL HISTORY : Breast implants. Oral surgery. ENCOUNTER: Initial ACUITY: 1 day PAIN SCORE: 4/10 LOCATION: Right arm. FINDINGS: The examination is abnormal demonstrate absent flow and echogenic thrombus within the lumen of the br achial vein adjacent proximal to the indwelling IV. There is intact flow in the subclavian and axilla ry veins. CONCLUSION: Occlusive echogenic thrombus in the brachial vein. Zane Givens MD on September 14, 2017 at 12:14 Board Certified Radiologist. This report was verified electronically.
[2017-09-14 14:52] VITALS: BP 112/61; PULSE 74
[2017-09-14 15:00] VITALS: RESP 18
[2017-09-14 23:54] LABS: THYROGLOB ABS LESS THAN 1 IU/mL (< OR = 1); THYROID PEROX AB (MICROSOMAL) 482 IU/mL (<9)
[2017-09-17] MEDS ORDERED: LEVOTHYROXINE SODIUM 25 MCG TAB PO SCH (06:00)
== END 2017-09-14 15:17 | disposition home health service (06) | DRG 781 ==
LOC: H2EA 14:16 → UNDOADMOB 14:16 → H2EA 09-02 15:13 → UNDODISOB 09-03 11:00 → INTOOBSV 09-09 10:28 → OBSVTOIN 09-09 10:28
PROVIDERS: ADMIT Obstetrics & Gynecology; ATTEND Obstetrics & Gynecology
DX: O21.1 Hyperemesis gravidarum with metabolic disturbance (principal); E86.0 Dehydration; E03.9 Hypothyroidism, unspecified; O99.281 Endocrine, nutritional and metabolic diseases complicating pregnancy, first trimester; E87.6 Hypokalemia; I95.1 Orthostatic hypotension; R51 Headache; Z3A.13 13 weeks gestation of pregnancy; Z88.1 Allergy status to other antibiotic agents; Z88.0 Allergy status to penicillin
CPT/HCPCS: 36569; 76801; 76937; 80048; 80053; 80074; 80076; 81001; 82150; 83690; 83735; 84100; 84439; 84443; 85025; 85027; 86376; 86800; 93971; J1720; J2405; J2765; J3411; J3415; J3480; J7030; J7120

== ENCOUNTER 2017-09-16 11:13 | Inpatient (IN) | payer OTHER ==
[~2017-09-16] VITALS: Ht 165.1 cm; Wt 93.6 kg
[2017-09-16] VITALS (11 sets, daily range): BP systolic 109–140; BP diastolic 63–91; PULSE 69–88; RESP 14–22; TEMP 97.5–98.5; O2SAT 96–100
[~2017-09-16 11:13] MED LIST changes: +CARA1TAB6 PO; +LEVO25TA4 PO; +METO10TA PO; +Metoclopramide Liq PO; +Non-Formulary Drug PO; +SUCR1S PO
[2017-09-16] MEDS ORDERED: SODIUM CHLORIDE 0.9% FLUSH 10 ML FLUSH IVF PRN (11:45)
[2017-09-16] MEDS ORDERED: SODIUM CHLOR 0.9% 1000 ML INJ 1,000 ML IV ONE (11:45)
[2017-09-16] MEDS ORDERED: ZOFRAN PUMP SQ (11:56)
--- NOTE | 2017-09-16 12:13 | PD ---
HPI Chief Complaint: Chest Pain Time Seen by Provider: 11:24 Travel History International Travel<30 days: No Contact w/Intl Traveler<30days: No Traveled to known affect area: No History of Present Illness HPI Patient's 32-year-old female presenting to emergency evaluation of chest pain. Patient states the pain started approximately 0800 this morning, it is midsternal and pressure-like in nature. She rates her pain a 3 out of 10. There is no radiation of the pain. There are no alleviating or exacerbating factors. Patient states that she was called this morning by her REDUCER and notified that she was told that she has an occlusive DVT in her right arm. She then mentioned to them that she had chest pain and was advised to come to the emergency department. Patient is 13 weeks 3 days , she has been suffering from hyperemesis gravidarum for the last 6 weeks. She reports that she has been short of breath, dizzy secondary to the nausea and vomiting and deconditioning. Patient has been in the hospital recently and she states anytime she gets up she does feel short of breath but she is uncertain whether or not is related to the chest pain or lack of recent activity. Patient has a Zofran pump, she has had no vomiting today. She has no history of coagulopathy. She denies any significant past medical history other than hypothyroidism during this , she reports compliance with Synthroid. Patient denies any related complaints. No vaginal bleeding, discharge , abdominal cramping. PFSH Past Medical History Blood Disorders: Yes (dvt r arm) Diminished Hearing: No Genitourinary: Yes (KIDNEY REFLUX CHILD) Immunizations Current: No Thyroid Disease: Yes ?: : 2 Para: 1 Past Surgical History Oral Surgery: Yes Other Surgery: Yes (BREAST IMPLANTS) Family History Family Hypercholesterolemia: Yes (FATHER) Social History Alcohol Use: No Tobacco Use: No Substance Use: No Allergies-Medications (Allergen,Severity, Reaction): Coded Allergies: penicillin G (Unverified Allergy, Severe, HIVES, 09/16/17) cephalexin (Unverified Allergy, Mild, hives, 09/16/17) Reported Meds & Prescriptions Reported Meds & Active Scripts Active Sucralfate Liq (Sucralfate) 1 Gram/10 Ml Theresa 1 Gm PO ACHS Metoclopramide (Metoclopramide HCl) 10 Mg Tab 10 Mg PO ACHS 10 Days Levothyroxine (Levothyroxine Sodium) 25 Mcg Tab 25 Mcg PO DAILY@0600 90 Days Reported [Zofran Pump] 8 Mg SQ Q6HR Review of Systems Except as stated in HPI: all other systems reviewed are Neg General / Constitutional: No: Fever, Chills Eyes: No: Blurred Vision HENT: Positive: Headaches Cardiovascular: Positive: Chest Pain or Discomfort, Dyspnea on exertion Respiratory: Positive: Shortness of Breath Gastrointestinal: Positive: Nausea, Vomiting, No: Abdominal Pain Genitourinary: No: Dysuria, Pelvic Pain, Discharge, Vaginal Bleeding Neurologic: Positive: Dizziness, No: Weakness, Focal Abnormalities Physical Exam Narrative GENERAL: Well-developed, well-nourished, alert female. Resting comfortably in no acute distress. SKIN: Warm and dry. HEAD: Atraumatic. Normocephalic. EYES: Pupils equal and round. No scleral icterus. No injection or drainage. ENT: No nasal bleeding or discharge. Mucous membranes appear dry. NECK: Trachea midline. No JVD. CARDIOVASCULAR: Regular rate and rhythm. RESPIRATORY: No accessory muscle use. Clear to auscultation. Breath sounds equal bilaterally. GASTROINTESTINAL: Abdomen soft, non-tender, nondistended. Hepatic and splenic margins not palpable. Positive bowel sounds. MUSCULOSKELETAL: Extremities without clubbing, cyanosis, or edema. No obvious deformities. NEUROLOGICAL: Awake and alert. No obvious cranial nerve deficits. Motor grossly within normal limits. Five out of 5 muscle strength in the arms and legs. Normal speech. PSYCHIATRIC: Appropriate mood and affect; insight and judgment normal. Data Data Last Documented VS Vital Signs Date Time Temp Pulse Resp B/P (MAP) Pulse Ox O2 Delivery O2 Flow Rate FiO2 09/16/17 11:52 80 20 116/69 (85) 97 Room Air 09/16/17 11:52 2.00 09/16/17 11:15 98.4 Orders Orders Electrocardiogram (09/16/17 11:38) Ckmb (Isoenzyme) Profile (09/16/17 11:38) Complete Blood Count With Diff (09/16/17 11:38) Comprehensive Metabolic Panel (09/16/17 11:38) Magnesium (Mg) (09/16/17 11:38) Prothrombin Time / Inr (Pt) (09/16/17 11:38) Act Partial Throm Time (Ptt) (09/16/17 11:38) Troponin I (09/16/17 11:38) Lipase (09/16/17 11:38) Ecg Monitoring (09/16/17 11:38) Bilateral Bp Monitoring (09/16/17 11:38) Iv Access Insert/Monitor (09/16/17 11:38) Oximetry (09/16/17 11:38) Oxygen Administration (09/16/17 11:38) Sodium Chloride 0.9% Flush (Ns Flush) (09/16/17 11:45) Sodium Chlor 0.9% 1000 Ml Inj (Ns 1000 M (09/16/17 11:45) Lung Scan - Perfusion (09/16/17 ) Chest, Single Ap (09/16/17 ) Admit Order (Ed Use Only) (09/16/17 12:31) Labs Laboratory Tests Test 09/16/17 11:45 White Blood Count 9.5 TH/MM3 Red Blood Count 4.30 MIL/MM3 Hemoglobin 12.8 GM/DL Hematocrit 37.1 % Mean Corpuscular Volume 86.2 FL Mean Corpuscular Hemoglobin 29.7 PG Mean Corpuscular Hemoglobin Concent 34.4 % Red Cell Distribution Width 13.4 % Platelet Count 207 TH/MM3 Mean Platelet Volume 8.9 FL Neutrophils (%) (Auto) 68.2 % Lymphocytes (%) (Auto) 20.6 % Monocytes (%) (Auto) 9.1 % Eosinophils (%) (Auto) 1.9 % Basophils (%) (Auto) 0.2 % Neutrophils # (Auto) 6.5 TH/MM3 Lymphocytes # (Auto) 2.0 TH/MM3 Monocytes # (Auto) 0.9 TH/MM3 Eosinophils # (Auto) 0.2 TH/MM3 Basophils # (Auto) 0.0 TH/MM3 CBC Comment DIFF FINAL Differential Comment Prothrombin Time 10.1 SEC Prothromb Time International Ratio 1.0 RATIO Activated Partial Thromboplast Time 23.9 SEC Blood Urea Nitrogen 7 MG/DL Creatinine 0.58 MG/DL Random Glucose 101 MG/DL Albumin 3.4 GM/DL Calcium Level 8.7 MG/DL Magnesium Level 1.8 MG/DL Aspartate Amino Transf (AST/SGOT) 12 U/L Alanine Aminotransferase (ALT/SGPT) 19 U/L Sodium Level 137 MEQ/L Potassium Level 3.7 MEQ/L Chloride Level 104 MEQ/L Carbon Dioxide Level 23.3 MEQ/L Anion Gap 10 MEQ/L Estimat Glomerular Filtration Rate 121 ML/MIN Lipase 100 U/L MDM Medical Decision Making Medical Screen Exam Complete: Yes Emergency Medical Condition: Yes Medical Record Reviewed: Yes Interpretation(s) Vital Signs Date Time Temp Pulse Resp B/P (MAP) Pulse Ox O2 Delivery O2 Flow Rate FiO2 09/16/17 11:52 80 20 116/69 (85) 97 Room Air 09/16/17 11:52 97 Room Air 09/16/17 11:52 Nasal Cannula 2.00 09/16/17 11:46 98 Room Air 09/16/17 11:15 98.4 88 16 140/91 (107) 98 Differential Diagnosis Pulmonary embolism versus metabolic abnormality versus anxiety versus pleuritic pain versus other Narrative Course Patient's a 32-year-old female that presented to the emergency department for evaluation of chest pain and an occlusive DVT in her right brachial vein. Patient is 13.3 weeks , she has no related complaints. Her vital signs are stable. Labs and imaging ordered and pending. Dr. Izquierdo spoke with Dr. Aguilera patients neon tube pumper REDUCER to discuss options regarding whether or not to obtain a VQ scan as opposed to empiric treatment. REDUCER is requesting VQ scan. This was discussed with patient and patient is agreeable this time. Dr. Albarado spoke with Dr. Aguilera who admitted patient to his service. Please see Dr. Izquierdo's documentation. Diagnosis Primary Impression: DVT (deep vein thrombosis) in Admitting Information Admitting Physician Requests: Admit Condition: Stable Bianca Ornelas Ginny BONNER Sep 16, 2017 12:13
[2017-09-16 12:18] LABS: AUTOMATED NEUTROPHIL # 6.5 TH/MM3 (1.8-7.7); BASOPHIL % 0.2 % (0.0-2.0); EOSINOPHIL # 0.2 TH/MM3 (0-0.4); EOSINOPHIL % 1.9 % (0.0-4.0); HEMATOCRIT 37.1 % (35.0-46.0); HEMOGLOBIN 12.8 GM/DL (11.6-15.3); LYMPH % 20.6 % (9.0-44.0); MEAN CELL VOLUME 86.2 FL (80.0-100.0); MEAN CORPUSCULAR HEMOGLOBIN 29.7 PG (27.0-34.0); MEAN CORPUSCULAR HGB CONC 34.4 % (32.0-36.0); MEAN PLATELET VOLUME 8.9 FL (7.0-11.0); MONO % 9.1 % (0.0-8.0); MONOCYTE # 0.9 TH/MM3 (0-0.9); NEUT % 68.2 % (16.0-70.0); PLATELET COUNT 207 TH/MM3 (150-450); RED CELL DISTRIBUTION WIDTH 13.4 % (11.6-17.2); WHITE BLOOD COUNT 9.5 TH/MM3 (4.0-11.0)
[2017-09-16 12:28] LABS: PROTHROMBIN TIME - PATIENT 10.1 SEC (9.8-11.6)
[2017-09-16] MEDS ORDERED: SODIUM CHLORIDE 0.9% FLUSH 10 ML FLUSH IV FLUSH PRN (12:45)
[2017-09-16] MEDS ORDERED: ONDANSETRON ODT 4 MG TAB PO PRN (12:45)
[2017-09-16] MEDS ORDERED: ACETAMINOPHEN 325 MG TAB PO PRN (12:45)
[2017-09-16] MEDS ORDERED: ONDANSETRON HCL 4 MG/2 ML VIAL IV PUSH PRN (12:45)
--- NOTE | 2017-09-16 12:48 | RADRPT ---
EXAM DATE/TIME: 09/16/2017 12:17 [facility] COMPARISON: No previous studies available for comparison. INDICATIONS : Chest discomfort , patient has history of dehydration this and DVT right arm. MEDICAL HISTORY : Thyroid disease. Kidney reflux as child. DVT in arm SURGICAL HISTORY : breast implants ENCOUNTER: Initial ACUITY: 1 day PAIN SCORE: 6/10 LOCATION: mid chest FINDINGS: A single view of the chest demonstrates the lungs to be symmetrically aerated without evidence of mas s, infiltrate or effusion. The cardiomediastinal contours are unremarkable. Osseous structures are intact. CONCLUSION: No acute disease. Jose Juan Eid MD on September 16, 2017 at 12:45 Board Certified Radiologist. This report was verified electronically.
[2017-09-16 13:09] LABS: ALBUMIN 3.4 GM/DL (3.4-5.0); ALT (GPT) 19 U/L (10-53); AST (GOT) 12 U/L (15-37); BICARBONATE 23.3 MEQ/L (21.0-32.0); BLOOD UREA NITROGEN 7 MG/DL (7-18); CALCIUM 8.7 MG/DL (8.5-10.1); CHLORIDE 104 MEQ/L (98-107); CREATININE 0.58 MG/DL (0.50-1.00); GLOMERULAR FILTRATION RATE 121 ML/MIN (>89); GLUCOSE,RANDOM 101 MG/DL (74-106); LIPASE 100 U/L (73-393); MAGNESIUM 1.8 MG/DL (1.5-2.5); SODIUM (NA) 137 MEQ/L (136-145)
[2017-09-16 13:35] LABS: ALKALINE PHOSPHATASE 57 U/L (45-117); TOTAL BILIRUBIN ADULT 0.3 MG/DL (0.2-1.0); TOTAL PROTEIN 7.3 GM/DL (6.4-8.2); TROPONIN I LESS THAN 0.02 NG/ML (0.02-0.05)
--- NOTE | 2017-09-16 13:45 | PD ---
Data Data Last Documented VS Vital Signs Date Time Temp Pulse Resp B/P (MAP) Pulse Ox O2 Delivery O2 Flow Rate FiO2 09/16/17 11:52 80 20 116/69 (85) 97 Room Air 09/16/17 11:52 2.00 09/16/17 11:15 98.4 Orders Orders Electrocardiogram (09/16/17 11:38) Ckmb (Isoenzyme) Profile (09/16/17 11:38) Complete Blood Count With Diff (09/16/17 11:38) Comprehensive Metabolic Panel (09/16/17 11:38) Magnesium (Mg) (09/16/17 11:38) Prothrombin Time / Inr (Pt) (09/16/17 11:38) Act Partial Throm Time (Ptt) (09/16/17 11:38) Troponin I (09/16/17 11:38) Lipase (09/16/17 11:38) Ecg Monitoring (09/16/17 11:38) Bilateral Bp Monitoring (09/16/17 11:38) Iv Access Insert/Monitor (09/16/17 11:38) Oximetry (09/16/17 11:38) Oxygen Administration (09/16/17 11:38) Sodium Chloride 0.9% Flush (Ns Flush) (09/16/17 11:45) Sodium Chlor 0.9% 1000 Ml Inj (Ns 1000 M (09/16/17 11:45) Lung Scan - Perfusion (09/16/17 ) Chest, Single Ap (09/16/17 ) Admit Order (Ed Use Only) (09/16/17 12:31) Labs Laboratory Tests Test 09/16/17 11:45 White Blood Count 9.5 TH/MM3 Red Blood Count 4.30 MIL/MM3 Hemoglobin 12.8 GM/DL Hematocrit 37.1 % Mean Corpuscular Volume 86.2 FL Mean Corpuscular Hemoglobin 29.7 PG Mean Corpuscular Hemoglobin Concent 34.4 % Red Cell Distribution Width 13.4 % Platelet Count 207 TH/MM3 Mean Platelet Volume 8.9 FL Neutrophils (%) (Auto) 68.2 % Lymphocytes (%) (Auto) 20.6 % Monocytes (%) (Auto) 9.1 % Eosinophils (%) (Auto) 1.9 % Basophils (%) (Auto) 0.2 % Neutrophils # (Auto) 6.5 TH/MM3 Lymphocytes # (Auto) 2.0 TH/MM3 Monocytes # (Auto) 0.9 TH/MM3 Eosinophils # (Auto) 0.2 TH/MM3 Basophils # (Auto) 0.0 TH/MM3 CBC Comment DIFF FINAL Differential Comment Prothrombin Time 10.1 SEC Prothromb Time International Ratio 1.0 RATIO Activated Partial Thromboplast Time 23.9 SEC Blood Urea Nitrogen 7 MG/DL Creatinine 0.58 MG/DL Random Glucose 101 MG/DL Albumin 3.4 GM/DL Calcium Level 8.7 MG/DL Magnesium Level 1.8 MG/DL Aspartate Amino Transf (AST/SGOT) 12 U/L Alanine Aminotransferase (ALT/SGPT) 19 U/L Sodium Level 137 MEQ/L Potassium Level 3.7 MEQ/L Chloride Level 104 MEQ/L Carbon Dioxide Level 23.3 MEQ/L Anion Gap 10 MEQ/L Estimat Glomerular Filtration Rate 121 ML/MIN Lipase 100 U/L MDM Supervised Visit with REGGIE: Yes Narrative Course The history, exam, and medical decision-making in the associated midlevel provider note were completed with my assistance. I reviewed and agree with the findings presented. I attest that I had a [id number] encounter with the patient on the same day, and personally performed and documented my assessment and findings in the medical record. *My assessment and Findings: This is a 32-year-old female who is 13 weeks who presents to the emergency department with chest discomfort that started this morning on the left side, mild. She was recently diagnosed with a brachial DVT in the setting of having had a midline due to hyperemesis gravidarum. Patient patient is not hypoxic or tachycardic. I spoke to Dr. Thakkar chief contract officer for litigation legal assistant for the patient. We agreed with initiating Lovenox and a VQ scan will be ordered to evaluate the patient for pulmonary embolism. He agreed to admit the patient directly to his service. Esthela Izquierdo MD Sep 16, 2017 13:45
[2017-09-16] MEDS ORDERED: ENOXAPARIN SODIUM 100 MG/ML SYRINGE SQ SCH (14:00)
--- NOTE | 2017-09-16 14:12 | RADRPT ---
EXAM DATE/TIME: 09/16/2017 13:39 [facility] COMPARISON: CHEST SINGLE AP, September 16, 2017, 12:17. INDICATIONS : Chest pain with DVT in right arm, patient is 13 weeks . DOSE: 1.1 mCi Tc99m Labeled MAA IV MEDICAL HISTORY : Thyroid disease. SURGICAL HISTORY : Breast augmentation. ENCOUNTER: Initial ACUITY: 1 day PAIN SCALE: 2/10 LOCATION: Chest. TECHNIQUE: The patient was injected with MAA, and eight-view perfusion scan was performed. FINDINGS: PERFUSION: There is a homogenous pattern of radiotracer uptake throughout both lungs. No evidence of lobar or se gmental defects appreciated. CONCLUSION: Perfusion lung scan negative for pulmonary embolism. Normal exam Dick Lal MD on September 16, 2017 at 14:10 Board Certified Radiologist. This report was verified electronically.
--- NOTE | 2017-09-16 15:30 | HHI.HP ---
HPI Chief Complaint Right upper extremity DVT, chest pain Date Seen: Sep 16, 2017 Time Seen: 15:12 Travel History International Travel<30 Days: No Contact w/Intl Traveler<30Days: No Known Affected Area: No History of Present Illness HPI 32-year-old 001 at 13 weeks and 3 days by LMP and 7 week ultrasound with estimated due date of 03/21/2018. She was notified by one of our OB group partners that a doppler was done of her right upper extremity during her recent hospitalization in fact showed a DVT in the right brachial vein. Report from 09/14/17 "absent flow and echogenic thrombus within the lumen of the right brachial vein adjacent to proximal IV, there is intact flow in the subclavian and axillary veins." Patient had an indwelling IV at home for hydration and administration of IV Zofran. This is secondary to hyperemesis she recently had been admitted for round 2 weeks and was discharged on 09/14/2017 with a Zofran pump. She states that the first full day of the pump was today and she has felt nauseated but overall improved, she denies any episodes of emesis and is keeping down food and liquids. After notifying her of the finding of the DVT she endorsed having some chest pressure and discomfort for the past few days, worse when she lays flat, denies any shortness of breath other than her baseline, denies cough, feeling of anxiety, feels slightly dizzy, has a headache, denies visual changes. Denies any family history of blood clots, has no other risk factors for DVT other than and recent IV. History Past Medical History Narrative Medical Subclinical hypothyroidism Medical History: Denies Significant Hx Obstetric History Obstetric History G1: 37 weeks 5 days, , 7 lbs. 15 oz., daughter named Marlys. No significant complications Past Surgical History Narrative Surgical 2007: Breast augmentation Family History Narrative Family History Denies any history of known thrombophilia's. Social History Alcohol Use: No Tobacco Use: No Substance Abuse: No Allergies-Medications (Allergen,Severity, Reaction): Coded Allergies: penicillin G (Unverified Allergy, Severe, HIVES, 09/16/17) cephalexin (Unverified Allergy, Mild, hives, 09/16/17) Home Meds Active Scripts Sucralfate Liq (Sucralfate Liq) 1 Gram/10 Ml Theresa, 1 GM PO ACHS for nausea , #90 TAB Prov:Cleopatra Connor MD 09/11/17 Metoclopramide (Metoclopramide) 10 Mg Tab, 10 MG PO ACHS for hyperemesis for 10 Days, #30 TAB Prov:Cleopatra Connor MD 09/02/17 Levothyroxine (Levothyroxine) 25 Mcg Tab, 25 MCG PO DAILY@0600 for elevated TSH in office for 90 Days, #90 TAB 1 Refill Prov:Cleopatra Connor MD 09/02/17 Reported Medications [Zofran Pump] No Conflict Check, 8 MG SQ Q6HR 09/16/17 Discontinued Reported Medications Promethazine (Phenergan) 25 Mg Tablet, 25 MG PO Q6H Y for NAUSEA OR VOMITING, TAB 0 Refills 08/26/17 Doxylamine-Pyridoxine (Diclegis) 10-10 Mg Tab, 2 TAB PO HS 08/26/17 Discontinued Scripts [Non-Formulary Drug] 1 EA EA No Conflict Check, 0 EA PO BID, #60 Prov:Cleopatra Connor MD 09/11/17 Narrative Medication Takes Synthroid 25 g daily, uses home Zofran pump for nausea in Review of Systems General / Constitutional: No: Fever, Weight Gain, Chills, Other Eyes: No: Diploplia, Blurred Vision, Visual changes, Pain, Photophobia HENT: Headaches, No: Vertigo, Lightheadedness Cardiovascular: Chest Pain or Discomfort, No: Irregular Rhythm, Palpitations, Tachycardia, Syncope, Varicosities, Edema, Cyanosis Respiratory: No: Cough, Short of Breath, Other Gastrointestinal: Nausea, No: Vomiting, Diarrhea Genitourinary: No: Decreased Urinary Output, Oliguria Musculoskeletal: No: Limited ROM, Weakness, Cramping, Edema, Pain Skin: No Rash, No Itching, No Dryness, No Lumps, No Change in Pigmentation, No Change in Nails, No Alopecia, No Lesions Neurologic: Dizziness, No: Weakness, Syncope, Focal Abnormalities, Coordination Problem, Headache, Slurred Speech, Seizures Psychiatric: No: Depression, Suicidal Ideations, Homicidal Ideation Endocrine: No: Heat Intolerance, Cold Intolerance, Polydipsia, Polyuria, Other Physical Exam Vital Signs Date Time Temp Pulse Resp B/P (MAP) Pulse Ox O2 Delivery O2 Flow Rate FiO2 09/16/17 14:30 73 14 125/74 (91) 98 Room Air 09/16/17 13:00 74 21 126/74 (91) 100 Room Air 09/16/17 12:00 80 17 116/69 (85) 97 Room Air 09/16/17 11:52 80 20 116/69 (85) 97 Room Air 09/16/17 11:52 97 Room Air 09/16/17 11:52 Nasal Cannula 2.00 09/16/17 11:46 98 Room Air 09/16/17 11:15 98.4 88 16 140/91 (107) 98 Narrative GENERAL: Well-nourished, well-developed patient. SKIN: Warm and dry. HEAD: Normocephalic and atraumatic. EYES: No scleral icterus. No injection or drainage. ENT: No nasal drainage noted. Mucous membranes pink. Airway patent. NECK: Supple, trachea midline. No JVD. CARDIOVASCULAR: Regular rate and rhythm without murmurs, gallops, or rubs. RESPIRATORY: Breath sounds equal bilaterally. No accessory muscle use. BREASTS: Bilateral exam showed no masses , no retractions, no nipple discharge. ABDOMEN/GI: Abdomen soft, non-tender, bowel sounds present, no rebound, no guarding GENITOURINARY: Deferred Verbally told heart tones were 150s via Doppler EXTREMITIES: No cyanosis or edema. BACK: Nontender without obvious deformity. No CVA tenderness. NEUROLOGICAL: Awake and alert. Motor and sensory grossly within normal limits. Five out of 5 muscle strength in all muscle groups. Normal speech. Caprini VTE Risk Assessment Caprini VTE Risk Assessment: Mod/High Risk (score >= 2) Caprini Risk Assessment Model Point Value = 1 Point Value = 2 Point Value = 3 Point Value = 5 Age 41-60 Minor surgery BMI > 25 kg/m2 Swollen legs Varicose veins or History of unexplained or recurrent spontaneous Oral contraceptives or hormone replacement Sepsis (< 1 month) Serious lung disease, including pneumonia (< 1 month) Abnormal pulmonary function Acute myocardial infarction Congestive heart failure (< 1 month) History of inflammatory bowel disease Medical patient at bed rest Age 61-74 Arthroscopic surgery Major open surgery (> 45 min) Laparoscopic surgery (> 45 min) Malignancy Confined to bed (> 72 hours) Immobilizing plaster cast Central venous access Age >= 75 History of VTE Family history of VTE Factor V Leiden Prothrombin [id number] Lupus anticoagulant Anticardiolipin antibodies Elevated serum homocysteine Heparin-induced thrombocytopenia Other congenital or acquired thrombophilia Stroke (< 1 month) Elective arthroplasty Hip, pelvis, or leg fracture Acute spinal cord injury (< 1 month) Prophylaxis Regimen Total Risk Factor Score Risk Level Prophylaxis Regimen 0-1 Low Early ambulation 2 Moderate Order ONE of the following: *Sequential Compression Device (SCD) *Heparin 5000 units SQ BID 3-4 Higher Order ONE of the following medications: *Heparin 5000 units SQ TID *Enoxaparin/Lovenox 40 mg SQ daily (WT < 150 kg, CrCl > 30 mL/min) *Enoxaparin/Lovenox 30 mg SQ daily (WT < 150 kg, CrCl > 10-29 mL/min) *Enoxaparin/Lovenox 30 mg SQ BID (WT < 150 kg, CrCl > 30 mL/min) AND/OR *Sequential Compression Device (SCD) 5 or more Highest Order ONE of the following medications: *Heparin 5000 units SQ TID (Preferred with Epidurals) *Enoxaparin/Lovenox 40 mg SQ daily (WT < 150 kg, CrCl > 30 mL/min) *Enoxaparin/Lovenox 30 mg SQ daily (WT < 150 kg, CrCl > 10-29 mL/min) *Enoxaparin/Lovenox 30 mg SQ BID (WT < 150 kg, CrCl > 30 mL/min) AND *Sequential Compression Device (SCD) Data Data Vital Signs Reviewed: Yes Orders Orders Electrocardiogram (09/16/17 11:38) Ckmb (Isoenzyme) Profile (09/16/17 11:38) Complete Blood Count With Diff (09/16/17 11:38) Comprehensive Metabolic Panel (09/16/17 11:38) Magnesium (Mg) (09/16/17 11:38) Prothrombin Time / Inr (Pt) (09/16/17 11:38) Act Partial Throm Time (Ptt) (09/16/17 11:38) Troponin I (09/16/17 11:38) Lipase (09/16/17 11:38) Ecg Monitoring (09/16/17 11:38) Bilateral Bp Monitoring (09/16/17 11:38) Iv Access Insert/Monitor (09/16/17 11:38) Oximetry (09/16/17 11:38) Oxygen Administration (09/16/17 11:38) Sodium Chloride 0.9% Flush (Ns Flush) (09/16/17 11:45) Sodium Chlor 0.9% 1000 Ml Inj (Ns 1000 M (09/16/17 11:45) Lung Scan - Perfusion (09/16/17 ) Chest, Single Ap (09/16/17 ) Admit Order (Ed Use Only) (09/16/17 12:31) Enoxaparin Inj (Lovenox Inj) (09/16/17 14:00) Place In Observation (09/16/17 ) Diet Regular Basic (09/16/17 Lunch) Vital Signs (Adult) MALCOLM.A5R-XCFUO AWAKE (09/16/17 12:34) Vital Signs (Adult) MALCOLM.QSHIFT (09/16/17 12:34) Heart RT.QDAY (09/16/17 12:34) Activity Oob Ad Goog (09/16/17 12:34) Acetaminophen (Tylenol) (09/16/17 12:45) Sodium Chloride 0.9% Flush (Ns Flush) (09/16/17 21:00) Sodium Chloride 0.9% Flush (Ns Flush) (09/16/17 12:45) Ondansetron Odt (Zofran Odt) (09/16/17 12:45) Ondansetron Inj (Zofran Inj) (09/16/17 12:45) ^ Other Nursing Orders (09/16/17 12:34) Consult Hematology (09/16/17 ) (Hub Use Only)Inp Phy Cons/Ref (09/16/17 ) Admit To Inpatient (09/16/17 ) Inpatient Certification (09/16/17 ) Enoxaparin Inj (Lovenox Inj) (09/16/17 15:00) Koiy-Nscpq-Lmio 325-50-40 Mg (Fioricet 3 (09/16/17 15:15) Bqtl-Fydcf-Rwnc 325-50-40 Mg (Fioricet 3 (09/16/17 15:15) Lr (Bolus) Inj (09/16/17 15:15) Labs Laboratory Tests Test 09/16/17 11:45 White Blood Count 9.5 Red Blood Count 4.30 Hemoglobin 12.8 Hematocrit 37.1 Mean Corpuscular Volume 86.2 Mean Corpuscular Hemoglobin 29.7 Mean Corpuscular Hemoglobin Concent 34.4 Red Cell Distribution Width 13.4 Platelet Count 207 Mean Platelet Volume 8.9 Neutrophils (%) (Auto) 68.2 Lymphocytes (%) (Auto) 20.6 Monocytes (%) (Auto) 9.1 Eosinophils (%) (Auto) 1.9 Basophils (%) (Auto) 0.2 Neutrophils # (Auto) 6.5 Lymphocytes # (Auto) 2.0 Monocytes # (Auto) 0.9 Eosinophils # (Auto) 0.2 Basophils # (Auto) 0.0 CBC Comment DIFF FINAL Differential Comment Prothrombin Time 10.1 Prothromb Time International Ratio 1.0 Activated Partial Thromboplast Time 23.9 Blood Urea Nitrogen 7 Creatinine 0.58 Random Glucose 101 Total Protein 7.3 Albumin 3.4 Calcium Level 8.7 Magnesium Level 1.8 Alkaline Phosphatase 57 Aspartate Amino Transf (AST/SGOT) 12 Alanine Aminotransferase (ALT/SGPT) 19 Total Bilirubin 0.3 Sodium Level 137 Potassium Level 3.7 Chloride Level 104 Carbon Dioxide Level 23.3 Anion Gap 10 Estimat Glomerular Filtration Rate 121 Total Creatine Kinase 37 Troponin I LESS THAN 0.02 Lipase 100 Assessment/Plan Problem List: (1) DVT (deep vein thrombosis) in ICD Codes: O22.30 - Deep phlebothrombosis in , unspecified trimester; I82.409 - Acute embolism and thrombosis of unspecified deep veins of unspecified lower extremity Status: Acute Assessment and Plan 32-year-old 001 at 13 weeks and 3 days by LMP and 7 week ultrasound with estimated due date of 03/21/2018. 1. : Daily Dopplers, continue routine care with [facility] [employer] MANAGER after discharge home. 2. Right upper extremity DVT / chest pain: Plan for observation overnight night , chest x-ray and VQ scan unremarkable, provided patient reassurance, begin therapeutic Lovenox @ 1mg/kg = 90 mg twice a day. Consulted hematology for any additional recommendations, unsure how long therapeutic dose should continue before switching to prophylactic dose during the . Discussed with patient likely defer thrombophilia workup given risk given probable cause from IV and current / anticoagulation. 3. Headache: wrote for Fioricet and IV fluid bolus 4. Nausea: No emesis, continue home Zofran pump. Managed by home health 5. Subclinical hypothyroidism: continue home Synthroid 25mcg qd. Eliel Thakkar MD Sep 16, 2017 15:30
[2017-09-16] MEDS: ENOXAPARIN SODIUM 100 MG/ML SYRINGE SQ SCH (15:32)
[2017-09-16] MEDS ORDERED: LACTATED RINGER'S 1000 ML INJ 1,000 ML IV ONE (16:00)
[2017-09-16] MEDS ORDERED: ACETAMIN 325 MG/BUTALBITAL 50 MG/CAFFEINE 40 MG TAB PO ONE (16:00)
[2017-09-16] MEDS ORDERED: ENOX100P SQ (18:13)
--- NOTE | 2017-09-16 18:16 | HHI.DS ---
Admission Date Sep 16, 2017 at 13:58 Discharge Date: Sep 17, 2017 Admitting Diagnosis dvt, chest pain Diagnosis: Brief History 32-year-old who presented at 13 weeks and 3 days THOMAS 03/21/2018, who was dx with a RUE DVT, was started on theraputic lovenox 90mg BID and hematology was consulted. She had a negative CXR and VQ scan because of some chest pain, these both returned negative. . Pt Condition on Discharge: Good Discharge Disposition: Discharge Home Discharge Instructions Diet Instructions: As Tolerated, No Restrictions Follow up Referrals: [facility]EL[facility] - 1 Week @ [facility] New Medications: Enoxaparin Inj (Lovenox Inj) 100 Mg/Ml Syr 90 MG SQ Q12H for Prevent Blood Clot for 30 Days, #60 INJECTION 1 Refill Continued Medications: Levothyroxine (Levothyroxine) 25 Mcg Tab 25 MCG PO DAILY@0600 for elevated TSH in office for 90 Days, #90 TAB 1 Refill Metoclopramide (Metoclopramide) 10 Mg Tab 10 MG PO ACHS for hyperemesis for 10 Days, #30 TAB Sucralfate Liq (Sucralfate Liq) 1 Gram/10 Ml Theresa 1 GM PO ACHS for nausea , #90 TAB [Zofran Pump] () 8 MG SQ Q6HR Eliel Thakkar MD Sep 16, 2017 18:16
[2017-09-16] MEDS: SODIUM CHLORIDE 0.9% FLUSH 10 ML FLUSH IV FLUSH SCH (21:53)
[2017-09-16] MEDS: ACETAMIN 325 MG/BUTALBITAL 50 MG/CAFFEINE 40 MG TAB PO PRN (22:27)
[2017-09-16] MEDS ORDERED: FAMOTIDINE 20 MG TAB PO SCH (23:30)
[2017-09-16] MEDS: LACTATED RINGER'S 1000 ML INJ 1,000 ML IV SCH (23:52)
[2017-09-17] VITALS: PULSE 64
[2017-09-17] MEDS: ENOXAPARIN SODIUM 100 MG/ML SYRINGE SQ SCH (03:53)
[2017-09-17 04:00] VITALS: PULSE 67
[2017-09-17 04:35] VITALS: BP 117/61; PULSE 67; RESP 16; TEMP 98; O2SAT 95
[2017-09-17] MEDS: ACETAMIN 325 MG/BUTALBITAL 50 MG/CAFFEINE 40 MG TAB PO PRN (04:39)
[2017-09-17] MEDS: LACTATED RINGER'S 1000 ML INJ 1,000 ML IV SCH (06:29)
[2017-09-17] MEDS ORDERED: LEVOTHYROXINE SODIUM 25 MCG TAB PO SCH (07:00)
--- NOTE | 2017-09-17 07:28 | MB ---
cc: JOSE ANTONIO GAY MD DATE OF CONSULTATION: 09/16/2017 CHIEF COMPLAINT 1. Acute upper extremity deep venous thrombosis. 2. 13 week . 3. VTE, provoked in the setting of and catheter placement HISTORY OF PRESENT ILLNESS Ms. Taylor is a 32-year-old lady with a history of hypothyroidism currently at 13 weeks and 3 days gestation. This is her second . She was recently discharged from the hospital on September 11, 2017 with a midline catheter. She was hospitalized for hyperemesis. She was discharge with Zofran pump and catheter for hydration at home. He obstretician is Dr. Avalos. She developed leakage of clear fluid from midline catheter. She underwent ultrasound which of the right upper extremity which revealed an occlusive echogenic thrombus in the brachial vein. She is status post removal of midline and she was started on Lovenox therapy at 1 mg per kilogram. In the emergency room she was feeling chest pressue and pain. VQ scan performed and was negative for any pulmonary embolism. PAST MEDICAL HISTORY 1. Hypothyroidism. OBSTETRICAL HISTORY Currently second . Her previous was 6 years ago. This was uncomplicated. PAST SURGICAL HISTORY: Breast augmentation in 2006. FAMILY HISTORY No known family history of blood clots No known family history of miscarriage. SOCIAL HISTORY Occasional social alcohol use when she is not . Denies tobacco and illegal use or drug use. She has a good support system in the area. ALLERGIES PENICILLIN KEFLEX. MEDICATIONS home medications include 1. Sucralfate 2. Reglan. 3. Synthroid. 4. Zofran pump. REVIEW OF SYSTEMS Performed and as mentioned in HPI. PHYSICAL EXAMINATION: IN GENERAL: A well-nourished, well-developed patient. SKIN: Warm and dry. HEAD, EYES, EARS, NOSE, AND THROAT: Head: Normocephalic, atraumatic. Eyes: No scleral icterus. NECK: Neck is supple. CARDIOVASCULAR SYSTEM: Regular rate and rhythm with no murmurs. RESPIRATORY: Clear to auscultation bilaterally. ABDOMEN: Soft, nontender, nondistended. Bowel sounds present. EXTREMITIES: With no edema. NEUROLOGIC: Grossly nonfocal. ASSESSMENT/PLAN 1. Right upper extremity DVT, provoked in the setting of and catheter placement. No evidence of PE on VQ scan. She was started on Lovenox therapy 1 mg/kg twice daily. She will need to continue therapeutic Lovenox dosing throughout the entire and into 6 weeks . We discussed that this clot is provoked with two major contributing factors including her midline as well as her . Discussed risk versus benefits of anticoagulation with the patient. Risk of anticoagulation includes major bleeding and benefits of anticoagulation include preventing further VTE. Goal anti Xa level of 0.6 to 1.0 for twice daily dosing. This will need to be measured four hours after the third or fourth dose. Once a satisfactory anti Xa level is reached she will continue on this dosing. (per uptodate once a satifactory level is reached rechecking the level is controversial because few women require dose adjustments) MD DAGO Valdez/dasha /12:02 AM /7:01 AM [facility]
[2017-09-17 08:00] VITALS: BP 112/73; PULSE 66; RESP 18; TEMP 97.1; O2SAT 95
[2017-09-17] MEDS ORDERED: SUCRALFATE 1 GM/10 ML CUP PO SCH (08:00)
--- NOTE | 2017-09-17 08:02 | PD.OB.ANTE ---
Subjective Diagnosis: (1) DVT (deep vein thrombosis) in Diagnosis: Principal Interval History doing well, headache better, no emesis Objective Vital Signs Vital Signs Date Time Temp Pulse Resp B/P (MAP) Pulse Ox O2 Delivery O2 Flow Rate FiO2 09/17/17 04:35 98.0 67 16 117/61 (79) 95 09/17/17 04:00 67 09/17/17 00:00 64 09/16/17 23:42 97.8 69 16 109/65 (80) 96 09/16/17 20:56 97.5 73 16 115/71 (86) 96 09/16/17 17:36 97.8 75 20 114/70 (85) 98 09/16/17 17:05 98.5 78 16 113/63 (80) 97 09/16/17 16:00 74 22 115/65 (82) 100 Room Air 09/16/17 15:00 72 16 121/68 (85) 99 Room Air 09/16/17 14:30 73 14 125/74 (91) 98 Room Air 09/16/17 13:00 74 21 126/74 (91) 100 Room Air 09/16/17 12:00 80 17 116/69 (85) 97 Room Air 09/16/17 11:52 80 20 116/69 (85) 97 Room Air 09/16/17 11:52 97 Room Air 09/16/17 11:52 Nasal Cannula 2.00 09/16/17 11:46 98 Room Air 09/16/17 11:15 98.4 88 16 140/91 (107) 98 Intake & Output 09/17/17 09/17/17 07:00 19:00 Intake Total 360 ml Output Total 1200 ml Balance -840 ml Intake Oral 360 ml Output Urine Total 1200 ml # Bowel Movements 0 Lab & Micro Results Test 09/16/17 11:45 White Blood Count 9.5 TH/MM3 Red Blood Count 4.30 MIL/MM3 Hemoglobin 12.8 GM/DL Hematocrit 37.1 % Mean Corpuscular Volume 86.2 FL Mean Corpuscular Hemoglobin 29.7 PG Mean Corpuscular Hemoglobin Concent 34.4 % Red Cell Distribution Width 13.4 % Platelet Count 207 TH/MM3 Mean Platelet Volume 8.9 FL Neutrophils (%) (Auto) 68.2 % Lymphocytes (%) (Auto) 20.6 % Monocytes (%) (Auto) 9.1 % Eosinophils (%) (Auto) 1.9 % Basophils (%) (Auto) 0.2 % Neutrophils # (Auto) 6.5 TH/MM3 Lymphocytes # (Auto) 2.0 TH/MM3 Monocytes # (Auto) 0.9 TH/MM3 Eosinophils # (Auto) 0.2 TH/MM3 Basophils # (Auto) 0.0 TH/MM3 CBC Comment DIFF FINAL Differential Comment Prothrombin Time 10.1 SEC Prothromb Time International Ratio 1.0 RATIO Activated Partial Thromboplast Time 23.9 SEC Blood Urea Nitrogen 7 MG/DL Creatinine 0.58 MG/DL Random Glucose 101 MG/DL Total Protein 7.3 GM/DL Albumin 3.4 GM/DL Calcium Level 8.7 MG/DL Magnesium Level 1.8 MG/DL Alkaline Phosphatase 57 U/L Aspartate Amino Transf (AST/SGOT) 12 U/L Alanine Aminotransferase (ALT/SGPT) 19 U/L Total Bilirubin 0.3 MG/DL Sodium Level 137 MEQ/L Potassium Level 3.7 MEQ/L Chloride Level 104 MEQ/L Carbon Dioxide Level 23.3 MEQ/L Anion Gap 10 MEQ/L Estimat Glomerular Filtration Rate 121 ML/MIN Total Creatine Kinase 37 U/L Troponin I LESS THAN 0.02 NG/ML Lipase 100 U/L Physical Exam GENERAL: Well-nourished, well-developed patient. CARDIOVASCULAR: Regular rate and rhythm without murmurs, gallops, or rubs. RESPIRATORY: Breath sounds equal bilaterally. No accessory muscle use. ABDOMEN/GI: Abdomen soft, non-tender. Fundus: [-] GENITOURINARY: External Genitalia: intact and normal in appearance Cervix: [-] Dilatation: [-] Effacement: [-] Station: [-] Presentation: [-] Membranes: [-] Uterine Contractions: [-] FHT's: Category: [-] Baseline: [-] Reactive: [-] Variability: [-] Decels: [-] EXTREMITIES: No cyanosis or edema, non-tender, without signs of DVT. Assessment and Plan Problem List: (1) DVT (deep vein thrombosis) in ICD Codes: O22.30 - Deep phlebothrombosis in , unspecified trimester; I82.409 - Acute embolism and thrombosis of unspecified deep veins of unspecified lower extremity Status: Acute Assessment and Plan 32-year-old 001 at 13 weeks and 4 days by LMP and 7 week ultrasound with estimated due date of 03/21/2018. 1. : Daily Dopplers, continue routine care with [facility] [facility] [facility] after discharge home. 2. Right upper extremity DVT / chest pain: neg CXR and VQ scan for PE. Pt to d/ c home today with Lovenox @ 1mg/kg = 90 mg twice a day, s/p heme consult, will see if she will follow up with them as an outpatient, rec to monitor Xa levels, based on weight and renal function will not do this at present, if they plan to as an outpt then ok. llikely defer thrombophilia workup given risk given probable cause from IV and current / anticoag - Discussed transistion to heparin later and regional anesthesia concerns, will conitinue discussion as an outpatient. 3. Nausea: No emesis, continue home Zofran pump. Managed by home health 4. Subclinical hypothyroidism: continue home Synthroid 25mcg qd. Eliel Thakkar MD Sep 17, 2017 08:02
[2017-09-17 08:08] VITALS: PULSE 63
[2017-09-17] MEDS: SODIUM CHLORIDE 0.9% FLUSH 10 ML FLUSH IV FLUSH SCH (08:55)
[2017-09-17] MEDS ORDERED: FAMOTIDINE 20 MG TAB PO SCH (09:00)
--- NOTE | 2017-09-17 13:14 | EKG ---
Date Performed: 09/16/2017 Time Performed: 11:36:42 PTAGE: 32 years EKG: Sinus rhythm NONSPECIFIC ST & T-WAVE ABNORMALITY BORDERLINE ECG NO PREVIOUS TRACING DOCTOR: José Miguel Multani Interpretating Date/Time 09/17/2017 13:14:46
== END 2017-09-17 10:05 | disposition home or self-care (01) | DRG 301 ==
LOC: NEPC 11:13 → NEDA 12:33 → OBSVTOIN 13:58 → NEDA 16:43 → N04B 17:47
PROVIDERS: ADMIT Obstetrics & Gynecology; ATTEND Obstetrics & Gynecology
DX: I82.621 Acute embolism and thrombosis of deep veins of right upper extremity (principal); E03.9 Hypothyroidism, unspecified; R07.89 Other chest pain; Z33.1 Pregnant state, incidental; R51 Headache
CPT/HCPCS: 71045; 78580; 80053; 82550; 83690; 83735; 84484; 85025; 85610; 85730; 93005; 99285; A9540; J1650; J7030; J7120

== ENCOUNTER → 2017-10-19 | Outpatient (CLI) | payer OTHER ==
[~2017-10-19] MED LIST changes: -CARA1TAB6 PO; -DOXY10TA PO; +ENOX100P SQ; -Metoclopramide Liq PO; -Non-Formulary Drug PO; -PROM25TA10 PO; +ZOFRAN PUMP SQ
== END ==
LOC: HPND 10:39
PROVIDERS: ATTEND Obstetrics & Gynecology
DX: O99.322 Drug use complicating pregnancy, second trimester (principal); O99.282 Endocrine, nutritional and metabolic diseases complicating pregnancy, second trimester; O21.0 Mild hyperemesis gravidarum; Z86.718 Personal history of other venous thrombosis and embolism
CPT/HCPCS: 76811

== ENCOUNTER 2017-11-06 07:15 | Emergency (ER) | payer OTHER ==
--- NOTE | 2017-11-06 09:23 | RADRPT ---
EXAM DATE/TIME: 11/06/2017 08:43 [facility] COMPARISON: No previous studies available for comparison. INDICATIONS : Left arm pain. MEDICAL HISTORY : Hypothyroidism. Deep venous thrombosis. SURGICAL HISTORY : Breast implants. ENCOUNTER: Initial ACUITY: 1 day PAIN SCORE: 4/10 LOCATION: Left arm. FINDINGS: There is spontaneous flow documented in the brachial, basilic, cephalic, axillary, and subclavian vei ns. The vessels are compressible and augmentation response is documented. No filling defects are se en. The flow is phasic with respiration. Direction of flow in the jugular vein is caudal. CONCLUSION: No evidence of deep or superficial thrombosis. Kalen Pisano MD on November 06, 2017 at 9:20 Board Certified Radiologist. This report was verified electronically.
[2017-11-06] MEDS ORDERED: ACETAMINOPHEN 325 MG TAB PO ONE (10:15)
--- NOTE | 2017-11-06 10:25 | PD ---
HPI Chief Complaint Upper extremity pain Date Seen: Nov 06, 2017 Time Seen: 10:20 Travel History International Travel<30 Days: No Contact w/Intl Traveler<30Days: No Known Affected Area: No History of Present Illness HPI 32-year-old 2 para 120+ weeks gestation who came in this morning with right upper extremity pain. is uncomplicated by hyperemesis for which she received a PICC line. She had a venous thrombosis for which she is now on Lovenox. She had increased pain and was concerned that she may be experiencing an exacerbation of her clot. Her evaluation was completed by Dr. Bobby and this note will serve as a summary of his care and recommendations. History Past Medical History Narrative Medical Hypothyroidism Past Surgical History Narrative Surgical Breast augmentation Family History Family History: Negative Social History Alcohol Use: No Tobacco Use: No Substance Abuse: No Allergies-Medications (Allergen,Severity, Reaction): Coded Allergies: penicillin G (Unverified Allergy, Severe, HIVES, 09/16/17) cephalexin (Unverified Allergy, Mild, hives, 09/16/17) Home Meds Active Scripts Enoxaparin Inj (Lovenox Inj) 100 Mg/Ml Syr, 90 MG SQ Q12H for Prevent Blood Clot for 30 Days, #60 INJECTION 1 Refill Prov:Eliel Thakkar MD 09/16/17 Sucralfate Liq (Sucralfate Liq) 1 Gram/10 Ml Theresa, 1 GM PO ACHS for nausea , #90 TAB Prov:Cleopatra Connor MD 09/11/17 Metoclopramide (Metoclopramide) 10 Mg Tab, 10 MG PO ACHS for hyperemesis for 10 Days, #30 TAB Prov:Cleopatra Connor MD 09/02/17 Levothyroxine (Levothyroxine) 25 Mcg Tab, 25 MCG PO DAILY@0600 for elevated TSH in office for 90 Days, #90 TAB 1 Refill Prov:Cleopatra Connor MD 09/02/17 Reported Medications [Zofran Pump] No Conflict Check, 8 MG SQ Q6HR 09/16/17 Review of Systems Cardiovascular: No: Irregular Rhythm, Chest Pain or Discomfort, Palpitations, Tachycardia, Syncope, Varicosities, Edema, Cyanosis Respiratory: No: Cough, Short of Breath, Other Gastrointestinal: Nausea, Vomiting Genitourinary: No: Decreased Urinary Output, Oliguria Musculoskeletal: No: Limited ROM, Weakness, Edema Neurologic: No: Weakness, Focal Abnormalities Physical Exam Narrative GENERAL: Well-nourished, well-developed patient. SKIN: Warm and dry. HEAD: Normocephalic and atraumatic. EYES: No scleral icterus. No injection or drainage. ENT: No nasal drainage noted. Mucous membranes pink. Airway patent. NECK: Supple, trachea midline. No JVD. CARDIOVASCULAR: Regular rate and rhythm without murmurs, gallops, or rubs. RESPIRATORY: Breath sounds equal bilaterally. No accessory muscle use. BREASTS: Bilateral exam showed no masses , no retractions, no nipple discharge. ABDOMEN/GI: Abdomen soft, non-tender, bowel sounds present, no rebound, no guarding Gravid to [-] weeks size Fundal Height: [-] GENITOURINARY: External Genitalia: intact and normal in appearance BUS glands: [-] Cervix: [-] Dilatation: [-] Effacement: [-] Station: [-] Presentation: [-] Membranes: [intact or ruptured] Uterine Contractions: [-] FHT's: Category: [-] Baseline: [-] Reactive: [-] Variability: [-] Decels: [-] EXTREMITIES: No cyanosis or edema. BACK: Nontender without obvious deformity. No CVA tenderness. NEUROLOGICAL: Awake and alert. Motor and sensory grossly within normal limits. Five out of 5 muscle strength in all muscle groups. Normal speech. Data Data Orders Orders Us Arm Venous Doppler (11/06/17 ) Acetaminophen (Tylenol) (11/06/17 10:15) MDM Narrative Course / MDM Assessment: Upper extremity discomfort in a 20+ week gestation, complicated by upper extremity DVT earlier in . Plan: Patient underwent vascular ultrasound which failed to them straight any abnormalities. Recommendations were for heat and Tylenol. Diagnosis Diagnosis: Primary Impression: 20 weeks gestation of Additional Impression: Upper extremity pain Disposition: 01 DISCHARGE HOME Condition: Good Rishi Olson MD Nov 06, 2017 10:25
== END 2017-11-06 10:34 | disposition home or self-care (01) ==
LOC: HOBED 07:15
DX: O99.89 Other specified diseases and conditions complicating pregnancy, childbirth and the puerperium (principal); M79.602 Pain in left arm; O99.282 Endocrine, nutritional and metabolic diseases complicating pregnancy, second trimester; E03.9 Hypothyroidism, unspecified; Z3A.20 20 weeks gestation of pregnancy
CPT/HCPCS: 93971

== ENCOUNTER → 2017-11-16 | Outpatient (CLI) | payer OTHER | LOC: HPND 10:42 | PROVIDERS: ATTEND Obstetrics & Gynecology | DX: O99.322 Drug use complicating pregnancy, second trimester (principal); O21.2 Late vomiting of pregnancy; O99.282 Endocrine, nutritional and metabolic diseases complicating pregnancy, second trimester; O99.112 Other diseases of the blood and blood-forming organs and certain disorders involving the immune mechanism complicating pregnancy, second trimester | CPT/HCPCS: 76816; 76825; 76827; 93325 ==

== ENCOUNTER 2017-11-19 19:22 | Emergency (ER) | payer OTHER ==
[2017-11-19 19:40] VITALS: PULSE 86; PULSE 87
[2017-11-19 20:00] VITALS: PULSE 83; PULSE 84
--- NOTE | 2017-11-19 20:22 | PD ---
HPI Chief Complaint decr FM Date Seen: Nov 19, 2017 Time Seen: 20:17 Travel History International Travel<30 Days: No Contact w/Intl Traveler<30Days: No Known Affected Area: No History of Present Illness HPI Pt is a 32y/o @ 22.4wks. She has PNC with Dr. Avalos. She presents tonight for decr FM. She states that she typically feels the baby move and he was breech but she thinks he flipped and now she can't feel him as well. She is very worried and wanted to be certain he was okay. She denies LOF, VB, ctx. is c/b: -- HEG s/p PICC line with resultant DVT in upper extremity, currently on zofran pump -- DVT, on tx lovenox BID -- hypothyroidism Weeks Gestation: 22 Para: 1 : 2 Last Menstrual Period: Nov 19, 2017 History Past Medical History Narrative Medical hypothyroidism Obstetric History Obstetric History 1. 2. current, HEG, DVT Past Surgical History Narrative Surgical breast augmentation Family History Family History: Negative Social History Alcohol Use: No Tobacco Use: No Substance Abuse: No Allergies-Medications (Allergen,Severity, Reaction): Coded Allergies: penicillin G (Unverified Allergy, Severe, HIVES, 09/16/17) cephalexin (Unverified Allergy, Mild, hives, 09/16/17) Home Meds Active Scripts Enoxaparin Inj (Lovenox Inj) 100 Mg/Ml Syr, 90 MG SQ Q12H for Prevent Blood Clot for 30 Days, #60 INJECTION 1 Refill Prov:Eliel Thakkar MD 09/16/17 Sucralfate Liq (Sucralfate Liq) 1 Gram/10 Ml Theresa, 1 GM PO ACHS for nausea , #90 TAB Prov:Cleopatra Connor MD 09/11/17 Metoclopramide (Metoclopramide) 10 Mg Tab, 10 MG PO ACHS for hyperemesis for 10 Days, #30 TAB Prov:Cleopatra Connor MD 09/02/17 Levothyroxine (Levothyroxine) 25 Mcg Tab, 25 MCG PO DAILY@0600 for elevated TSH in office for 90 Days, #90 TAB 1 Refill Prov:Cleopatra Connor MD 09/02/17 Reported Medications [Zofran Pump] No Conflict Check, 8 MG SQ Q6HR 09/16/17 Review of Systems Except as stated in HPI: all other systems reviewed are Neg Physical Exam Narrative General: well developed, well nourished, no acute distress HEENT: normocephalic atraumatic, extraocular movements intact, neck supple Abdomen: soft, gravid, nontender, nondistended Uterus: fundus at umbilicus Extremities: full range of motion Skin: normal coloration, no rashes, no suspicious skin lesions noted Neurologic: cranial nerves 2-12 grossly intact, normal muscle tone, normal gait Psychiatric: normal mood and affect, appropriate FHTs: 150s Waggoner: quiet Data Data Vital Signs Reviewed: Yes Orders Orders Vital Signs (Adult) .ON ADMISSION (11/19/17 20:08) ^ Labor Status (11/19/17 20:08) Heart (11/19/17 20:08) Ed Discharge Order (11/19/17 20:16) MDM Plan 32y/o @ 22.4wks with thalia RODRIGUEZ. -- +FHTs -- reassurance provided Dispo: d/c home with precautions, f/u as scheduled for PNV Diagnosis Diagnosis: Primary Impression: 22 weeks gestation of Additional Impressions: Decreased movement affecting management of in second trimester Hyperemesis affecting , antepartum Lauren Martin MD Nov 19, 2017 20:22
== END 2017-11-19 20:42 | disposition home or self-care (01) ==
LOC: HOBED 19:22
DX: O36.8120 Decreased fetal movements, second trimester, not applicable or unspecified (principal); O21.0 Mild hyperemesis gravidarum; O99.282 Endocrine, nutritional and metabolic diseases complicating pregnancy, second trimester; E03.9 Hypothyroidism, unspecified; Z3A.22 22 weeks gestation of pregnancy; Z86.718 Personal history of other venous thrombosis and embolism; Z88.0 Allergy status to penicillin; Z79.899 Other long term (current) drug therapy
CPT/HCPCS: 99282

== ENCOUNTER → 2017-12-15 | Outpatient (CLI) | payer OTHER, MEDICAID | LOC: HPND 09:57 | PROVIDERS: ATTEND Obstetrics & Gynecology | DX: O99.112 Other diseases of the blood and blood-forming organs and certain disorders involving the immune mechanism complicating pregnancy, second trimester (principal); Z86.718 Personal history of other venous thrombosis and embolism | CPT/HCPCS: 76816 ==

== ENCOUNTER 2018-01-13 15:29 | Emergency (ER) | END 2018-01-13 16:34 | disposition home or self-care (01) | DX: O99.283 Endocrine, nutritional and metabolic diseases complicating pregnancy, third trimester (principal); E03.9 Hypothyroidism, unspecified; Z3A.30 30 weeks gestation of pregnancy; Z86.718 Personal history of other venous thrombosis and embolism ==

== ENCOUNTER → 2018-01-16 | Outpatient (CLI) | payer MEDICAID | LOC: HPND 10:18 | PROVIDERS: ATTEND Obstetrics & Gynecology | DX: O22.33 Deep phlebothrombosis in pregnancy, third trimester (principal); O99.283 Endocrine, nutritional and metabolic diseases complicating pregnancy, third trimester | CPT/HCPCS: 76816 ==

== ENCOUNTER 2018-01-26 13:04 | Emergency (ER) | payer MEDICAID ==
--- NOTE | 2018-01-26 14:47 | PD ---
HPI Chief Complaint low fluid Date Seen: January 26, 2018 Time Seen: 14:38 Travel History International Travel<30 Days: No Contact w/Intl Traveler<30Days: No Known Affected Area: No History of Present Illness HPI pt. is a 32 @ 32 2/7 weeks present from ob diagnostics 2/2 decrese in phyllis. pt. seen weekly for bpp 2/2 clot earlier in . pt. have an phyllis of 13cm last week and this week it is 8cm. pt. states +FM, no lof/vb, no ctxs. Weeks Gestation: 32 Para: 1 : 2 History Past Medical History Narrative Medical h/o of clot in arm 2/2 catheter placement early in preg 2/2 hyperemesis on lovenox 90mg bid Obstetric History Obstetric History , x 1 Past Surgical History Surgical History: No Previous Surgery Family History Family History: Negative Social History Alcohol Use: No Tobacco Use: No Substance Abuse: No Allergies-Medications (Allergen,Severity, Reaction): Coded Allergies: penicillin G (Unverified Allergy, Severe, HIVES, 09/16/17) cephalexin (Unverified Allergy, Mild, hives, 09/16/17) Home Meds Active Scripts Enoxaparin Inj (Lovenox Inj) 100 Mg/Ml Syr, 90 MG SQ Q12H for Prevent Blood Clot for 30 Days, #60 INJECTION 1 Refill Prov:Eliel Thakkar MD 09/16/17 Sucralfate Liq (Sucralfate Liq) 1 Gram/10 Ml Theresa, 1 GM PO ACHS for nausea , #90 TAB Prov:Cleopatra Connor MD 09/11/17 Metoclopramide (Metoclopramide) 10 Mg Tab, 10 MG PO ACHS for hyperemesis for 10 Days, #30 TAB Prov:Cleopatra Connor MD 09/02/17 Levothyroxine (Levothyroxine) 25 Mcg Tab, 25 MCG PO DAILY@0600 for elevated TSH in office for 90 Days, #90 TAB 1 Refill Prov:Cleopatra Connor MD 09/02/17 Reported Medications [Zofran Pump] No Conflict Check, 8 MG SQ Q6HR 09/16/17 Review of Systems Except as stated in HPI: all other systems reviewed are Neg Physical Exam Narrative GENERAL: Well-nourished, well-developed patient. SKIN: Warm and dry. HEAD: Normocephalic and atraumatic. EYES: No scleral icterus. No injection or drainage. ENT: No nasal drainage noted. Mucous membranes pink. Airway patent. NECK: Supple, trachea midline. No JVD. CARDIOVASCULAR: Regular rate and rhythm without murmurs, gallops, or rubs. RESPIRATORY: Breath sounds equal bilaterally. No accessory muscle use. BREASTS: Bilateral exam showed no masses , no retractions, no nipple discharge. ABDOMEN/GI: Abdomen soft, non-tender, bowel sounds present, no rebound, no guarding Gravid GENITOURINARY: External Genitalia: intact and normal in appearance Membranes: Intact, amniosure - Uterine Contractions: none FHT's: Category: 1 Reactive: + Variability: mod EXTREMITIES: No cyanosis or edema. BACK: Nontender without obvious deformity. No CVA tenderness. NEUROLOGICAL: Awake and alert. Motor and sensory grossly within normal limits. Five out of 5 muscle strength in all muscle groups. Normal speech. Data Data Vital Signs Reviewed: Yes Orders Orders Geophysical Computer Clear For Discharge (01/26/18 ) [facility] Medical Record Reviewed: Yes Plan pt. to be d/c to home. no srom. fht reassuring. pt. given precautions for return. all ? answered. f/u as sched. Diagnosis Diagnosis: Primary Impression: Low amniotic fluid Additional Impression: 32 weeks gestation of Disposition: 01 DISCHARGE HOME Condition: Stable Patient Instructions: General Instructions, at 31 to 34 Weeks (ED) Additional Instructions: increase fluid intake. keep all scheduled appointments Departure Forms: Tests/Procedures Anirudh Bobby Jr., MD January 26, 2018 14:47
== END 2018-01-26 15:03 | disposition home or self-care (01) ==
LOC: HOBED 13:04
DX: O26.893 Other specified pregnancy related conditions, third trimester (principal); Z3A.32 32 weeks gestation of pregnancy
CPT/HCPCS: 84112; 99283

== ENCOUNTER 2018-02-03 13:34 | Emergency (ER) | payer MEDICAID ==
--- NOTE | 2018-02-03 14:12 | PD ---
HPI Chief Complaint Decreased movement Date Seen: Feb 03, 2018 Time Seen: 14:03 Travel History International Travel<30 Days: No Contact w/Intl Traveler<30Days: No Known Affected Area: No History of Present Illness HPI 32-year-old white female at 33 weeks sees the [facility] clinic presents complaining of decreased movement, she tried to eat and drink sweet items at home but did not stimulate movement. She has no other complaints or problems no pain, leakage, bleeding,. She describes the baby moving well now that she has been in OB ED for a while and the NST is reactive;, patient was seen in OB diagnostics yesterday had an ultrasound and biophysical profile that showed an DAYANARA of , her DAYANARA has steadily decreased over the last several ultrasounds down to this level and she is being followed weekly with the [facility] NST , she has an appointment on Tuesday 3 days from now Weeks Gestation: 33 Para: 1 : 2 History Obstetric History Obstetric History 1 vaginal delivery Social History Alcohol Use: No Tobacco Use: No Substance Abuse: No Allergies-Medications (Allergen,Severity, Reaction): Coded Allergies: penicillin G (Unverified Allergy, Severe, HIVES, 09/16/17) cephalexin (Unverified Allergy, Mild, hives, 09/16/17) Home Meds Active Scripts Enoxaparin Inj (Lovenox Inj) 100 Mg/Ml Syr, 90 MG SQ Q12H for Prevent Blood Clot for 30 Days, #60 INJECTION 1 Refill Prov:Eliel Thakkar MD 09/16/17 Sucralfate Liq (Sucralfate Liq) 1 Gram/10 Ml Theresa, 1 GM PO ACHS for nausea , #90 TAB Prov:Cleopatra Connor MD 09/11/17 Metoclopramide (Metoclopramide) 10 Mg Tab, 10 MG PO ACHS for hyperemesis for 10 Days, #30 TAB Prov:Cleopatra Connor MD 09/02/17 Levothyroxine (Levothyroxine) 25 Mcg Tab, 25 MCG PO DAILY@0600 for elevated TSH in office for 90 Days, #90 TAB 1 Refill Prov:Cleopatra Connor MD 09/02/17 Reported Medications [Zofran Pump] No Conflict Check, 8 MG SQ Q6HR 09/16/17 Review of Systems General / Constitutional: No: Fever, Weight Gain, Chills, Other Eyes: No: Diploplia, Blurred Vision, Visual changes, Pain, Photophobia HENT: No: Headaches, Vertigo, Lightheadedness Cardiovascular: No: Irregular Rhythm, Chest Pain or Discomfort, Palpitations, Tachycardia, Syncope, Varicosities, Edema, Cyanosis Respiratory: No: Cough, Short of Breath, Other Gastrointestinal: No: Nausea, Vomiting, Diarrhea Genitourinary: No: Decreased Urinary Output, Oliguria Musculoskeletal: No: Limited ROM, Weakness, Cramping, Edema, Pain Skin: No Rash, No Itching, No Dryness, No Lumps, No Change in Pigmentation, No Change in Nails, No Alopecia, No Lesions Neurologic: No: Weakness, Dizziness, Syncope, Focal Abnormalities, Coordination Problem, Headache, Slurred Speech, Seizures Psychiatric: No: Depression, Suicidal Ideations, Homicidal Ideation Endocrine: No: Heat Intolerance, Cold Intolerance, Polydipsia, Polyuria, Other Physical Exam Narrative GENERAL: Well-nourished, well-developed patient. SKIN: Warm and dry. HEAD: Normocephalic and atraumatic. EYES: No scleral icterus. No injection or drainage. ENT: No nasal drainage noted. Mucous membranes pink. Airway patent. NECK: Supple, trachea midline. No JVD. CARDIOVASCULAR: Regular rate and rhythm without murmurs, gallops, or rubs. RESPIRATORY: Breath sounds equal bilaterally. No accessory muscle use. BREASTS: Bilateral exam showed no masses , no retractions, no nipple discharge. ABDOMEN/GI: Abdomen soft, non-tender, bowel sounds present, no rebound, no guarding Gravid to [-33] weeks size Fundal Height: [33-] Membranes: [intact ] Uterine Contractions: [none-] FHT's: Category: [-1] Baseline: [-133] Reactive: [-R] Variability: [-mod] Decels: [0-] EXTREMITIES: No cyanosis or edema. BACK: Nontender without obvious deformity. No CVA tenderness. NEUROLOGICAL: Awake and alert. Motor and sensory grossly within normal limits. Five out of 5 muscle strength in all muscle groups. Normal speech. MDM Interpretation(s) 32-year-old white female at 33 weeks who presents complaining of decreased movement, she has documented borderline low amniotic fluid with an DAYANARA of 6.8 , and this being followed by maternal medicine and OB diagnostics with weekly NST biophysical BPP yesterday was 10 out of 10 with her NST being reactive. Her on OB ED baby is active patient describes activity and the NST is beautifully reactive Plan Plan to discharge patient home today she had a kick counts over the weekend and return for any decreased movement. She is scheduled for on Tuesday a repeat ultrasound NST Diagnosis Diagnosis: Primary Impression: Decreased movement affecting management of in third trimester Additional Impressions: Amniotic fluid index borderline low 33 weeks gestation of Disposition: DISCHARGE HOME Condition: Stable Davion Mccauley II, MD Feb 03, 2018 14:12
== END 2018-02-03 14:35 | disposition home or self-care (01) ==
LOC: HOBED 13:34
DX: O36.8130 Decreased fetal movements, third trimester, not applicable or unspecified (principal); Z3A.33 33 weeks gestation of pregnancy
CPT/HCPCS: 59025

== ENCOUNTER 2018-02-15 19:53 | Emergency (ER) | payer MEDICAID ==
--- NOTE | 2018-02-15 20:29 | PD ---
HPI Chief Complaint Decreased movement Date Seen: Feb 15, 2018 Time Seen: 20:27 Travel History International Travel<30 Days: No Contact w/Intl Traveler<30Days: No Known Affected Area: No History of Present Illness HPI 32-year-old who is at 35 weeks gestation comes in due to decreased movement which has resolved since she arrived. Patient is on Lovenox it was just switched over to heparin due to her history of a DVT in the past and when she went in for a biophysical profile yesterday her amniotic fluid had decreased from 11 to 6. Patient also had what she feels like is a gastroenteritis that lasted for a few days causing her to have nausea vomiting and diarrhea, now seems to have resolved and her appetite is back to normal. She has another ultrasound tomorrow to check her amniotic fluid index. Since arrival here in labor and delivery she states that the baby has been moving back to its normal Weeks Gestation: 35 Para: 1 : 2 History Past Medical History Narrative Medical Hypothyroidism DVT Obstetric History Obstetric History Spontaneous vaginal delivery Past Surgical History Surgical History: No Previous Surgery Family History Family History: Negative Social History Alcohol Use: No Tobacco Use: No Substance Abuse: No Allergies-Medications (Allergen,Severity, Reaction): Coded Allergies: penicillin G (Unverified Allergy, Severe, HIVES, 09/16/17) cephalexin (Unverified Allergy, Mild, hives, 09/16/17) Home Meds Active Scripts Enoxaparin Inj (Lovenox Inj) 100 Mg/Ml Syr, 90 MG SQ Q12H for Prevent Blood Clot for 30 Days, #60 INJECTION 1 Refill Prov:Eliel Thakkar MD 09/16/17 Sucralfate Liq (Sucralfate Liq) 1 Gram/10 Ml Theresa, 1 GM PO ACHS for nausea , #90 TAB Prov:Cleopatra Connor MD 09/11/17 Metoclopramide (Metoclopramide) 10 Mg Tab, 10 MG PO ACHS for hyperemesis for 10 Days, #30 TAB Prov:Cleopatra Connor MD 09/02/17 Levothyroxine (Levothyroxine) 25 Mcg Tab, 25 MCG PO DAILY@0600 for elevated TSH in office for 90 Days, #90 TAB 1 Refill Prov:Cleopatra Connor MD 09/02/17 Reported Medications [Zofran Pump] No Conflict Check, 8 MG SQ Q6HR 09/16/17 Review of Systems Except as stated in HPI: all other systems reviewed are Neg Physical Exam Narrative GENERAL: Well-nourished, well-developed patient. SKIN: Warm and dry. HEAD: Normocephalic and atraumatic. EYES: No scleral icterus. No injection or drainage. ENT: No nasal drainage noted. Mucous membranes pink. Airway patent. NECK: Supple, trachea midline. No JVD. CARDIOVASCULAR: Regular rate and rhythm without murmurs, gallops, or rubs. RESPIRATORY: Breath sounds equal bilaterally. No accessory muscle use. ABDOMEN/GI: Abdomen soft, non-tender, bowel sounds present, no rebound, no guarding Gravid to [35-] weeks size Fundal Height: [-] GENITOURINARY: Deferred External Genitalia: intact and normal in appearance BUS glands: [-] Cervix: [-] Dilatation: [-] Effacement: [-] Station: [-] Presentation: [-] Membranes: [intact or ruptured] Uterine Contractions: [-] FHT's: Category: [-] 1 Baseline: [-] 140 Reactive: [-] Moderate Variability: [-] Moderate Decels: [-] Absent EXTREMITIES: No cyanosis or edema. BACK: Nontender without obvious deformity. No CVA tenderness. NEUROLOGICAL: Awake and alert. Motor and sensory grossly within normal limits. Five out of 5 muscle strength in all muscle groups. Normal speech. Data Data Vital Signs Reviewed: Yes [facility] Medical Record Reviewed: Yes Plan 32-year-old who is at 35 weeks gestation History of DVT presently on heparin 5000 subcu twice daily Decreased movement, now resolved Decreased amniotic fluid, patient is a recheck of her amniotic fluid index tomorrow Hypothyroidism presently on replacement with levothyroxine Diagnosis Diagnosis: Primary Impression: 35 weeks gestation of Additional Impressions: Decreased movements, third trimester, other fetus Hypothyroidism affecting in third trimester History of DVT (deep vein thrombosis) Disposition: 01 DISCHARGE HOME Condition: Stable Patient Instructions: General Instructions, Movement (ED) Additional Instructions: DRINK PLENTY OF WATER DURING THE DAY. RETURN IF LEAKING FLUID, VAGINAL BLEEDING , STRONG CONTRACTIONS OR DECREASE IN MOVEMENT. KEEP ALL UPCOMING OB AND U/ S APPTS. Departure Forms: Tests/Procedures Allison Mishra MD Feb 15, 2018 20:29
[2018-02-23] MEDS ORDERED: HEPA100I8 IV (12:15)
[2018-02-23] MEDS ORDERED: PREN29TA PO (12:17)
[2018-02-23] MEDS ORDERED: heparin SQ (16:19)
== END 2018-02-15 20:37 | disposition home or self-care (01) ==
LOC: HOBED 19:53
DX: O36.8130 Decreased fetal movements, third trimester, not applicable or unspecified (principal); O99.283 Endocrine, nutritional and metabolic diseases complicating pregnancy, third trimester; E03.9 Hypothyroidism, unspecified; Z86.718 Personal history of other venous thrombosis and embolism; Z79.01 Long term (current) use of anticoagulants; Z3A.35 35 weeks gestation of pregnancy
CPT/HCPCS: 59025

== ENCOUNTER 2018-02-19 | Emergency (ER) | payer MEDICAID ==
--- NOTE | 2018-02-19 00:41 | PD ---
HPI Chief Complaint Upper abdominal discomfort and tightness Date Seen: Feb 19, 2018 Time Seen: 00:36 Travel History International Travel<30 Days: No Contact w/Intl Traveler<30Days: No Known Affected Area: No History of Present Illness HPI 32-year-old 2 para 1 at 35+ weeks gestation who presents tonight with complaint of upper abdominal tightness and discomfort. She has had some intermittent nausea and vomiting and intermittent diarrhea as well. She denies any visual changes. She has low-grade headache. She reports that her swelling is better today than it was yesterday. She had mildly elevated blood pressure at OB diagnostics earlier in the week. History Past Medical History Narrative Medical Upper extremity DVT and this Obstetric History Obstetric History Prior term vaginal delivery This complicated by hyperemesis in the first trimester and an upper extremity DVT for which she is now on Lovenox. Past Surgical History Surgical History: No Previous Surgery Family History Family History: Negative Social History Alcohol Use: No Tobacco Use: No Substance Abuse: No Allergies-Medications (Allergen,Severity, Reaction): Coded Allergies: penicillin G (Unverified Allergy, Severe, HIVES, 09/16/17) cephalexin (Unverified Allergy, Mild, hives, 09/16/17) Home Meds Active Scripts Enoxaparin Inj (Lovenox Inj) 100 Mg/Ml Syr, 90 MG SQ Q12H for Prevent Blood Clot for 30 Days, #60 INJECTION 1 Refill Prov:Eliel Thakkar MD 09/16/17 Sucralfate Liq (Sucralfate Liq) 1 Gram/10 Ml Theresa, 1 GM PO ACHS for nausea , #90 TAB Prov:Cleopatra Connor MD 09/11/17 Metoclopramide (Metoclopramide) 10 Mg Tab, 10 MG PO ACHS for hyperemesis for 10 Days, #30 TAB Prov:Cleopatra Connor MD 09/02/17 Levothyroxine (Levothyroxine) 25 Mcg Tab, 25 MCG PO DAILY@0600 for elevated TSH in office for 90 Days, #90 TAB 1 Refill Prov:Cleopatra Connor MD 09/02/17 Reported Medications [Zofran Pump] No Conflict Check, 8 MG SQ Q6HR 09/16/17 Review of Systems Except as stated in HPI: all other systems reviewed are Neg Physical Exam Narrative GENERAL: Well-nourished, well-developed patient. SKIN: Warm and dry. HEAD: Normocephalic and atraumatic. EYES: No scleral icterus. No injection or drainage. ENT: No nasal drainage noted. Mucous membranes pink. Airway patent. NECK: Supple, trachea midline. No JVD. CARDIOVASCULAR: Regular rate and rhythm without murmurs, gallops, or rubs. RESPIRATORY: Breath sounds equal bilaterally. No accessory muscle use. ABDOMEN/GI: Abdomen soft, non-tender, bowel sounds present, no rebound, no guarding Gravid to [-] weeks size Fundal Height: [-] GENITOURINARY: External Genitalia: intact and normal in appearance BUS glands: [-] Cervix: [-] Dilatation: [-] Effacement: [-] Station: [-] Presentation: [-] Membranes: [intact or ruptured] Uterine Contractions: [-] FHT's: Category: [-1] Baseline: [-] Reactive: [Yes-] Variability: [-] Decels: [-] EXTREMITIES: No cyanosis or edema. BACK: Nontender without obvious deformity. No CVA tenderness. NEUROLOGICAL: Awake and alert. Motor and sensory grossly within normal limits. Five out of 5 muscle strength in all muscle groups. Normal speech. Data Data Vital Signs Reviewed: Yes MDM Medical Record Reviewed: Yes Narrative Course / MDM Assessment: 35+ week intrauterine , no evidence of preeclampsia Plan: Home with PIH and labor precautions. Diagnosis Diagnosis: Primary Impression: 35 weeks gestation of Additional Impression: [place]' contraction Disposition: 01 DISCHARGE HOME Condition: Good Rishi Olson MD Feb 19, 2018 00:41
[2018-02-23] MEDS ORDERED: HEPA100I8 IV (12:15)
[2018-02-23] MEDS ORDERED: PREN29TA PO (12:17)
[2018-02-23] MEDS ORDERED: heparin SQ (16:19)
== END 2018-02-19 03:03 | disposition home or self-care (01) ==
LOC: HOBED
DX: O47.03 False labor before 37 completed weeks of gestation, third trimester (principal); O26.893 Other specified pregnancy related conditions, third trimester; R19.7 Diarrhea, unspecified; R51 Headache; Z3A.35 35 weeks gestation of pregnancy; Z86.718 Personal history of other venous thrombosis and embolism; Z88.0 Allergy status to penicillin
CPT/HCPCS: 59025

== ENCOUNTER 2018-02-28 16:40 | Inpatient (IN) ==
--- NOTE | 2018-02-28 17:35 | ED ---
Triage/Final Diagnosis - Visit Information Date of evaluation: 02/28/18 Reason for evaluation: decreased movement - Evaluation Baseline heart rate: 130 Variability: Moderate (11-25) monitor accelerations: Present monitor decelerations: None Cervical dilation (cm): 1 Cervical effacement (%): 25 station: -3 Vital signs: Vital Signs - 24 hr 02/28/18 17:19 Pulse Rate 84 Respiratory Rate 17 Blood Pressure 123/79 History of Present Illness Service: [facility] Primary Care Physician: Cheri Vazquez MD Chief Complaint: Decreased movement History of Present Illness: 32-year-old 001, IUP at 37.0 care complicated by DVT during this , hyperemesis, hypothyroidism The patient presents complaining of decreased movement. She reports that she has not felt any movement today despite specific focus on movements.. She reports that she felt good movement yesterday. She reports that since last week she has been followed for a low DAYANARA. She reports her DAYANARA was 5.2 last week, she received a course of betamethasone, and IV hydration. She reports that her DAYANARA was subsequently in the sevens but was repeated yesterday and was 5.1. She denies any large gush of fluid but reports that her underwear have been wet today. She denies any painful contractions, and reports only irregular Zebulon Lowry. She denies any vaginal bleeding. She denies any other obstetrical complaints. Weeks Gestation:: 37 Para: 1 : 2 Total # of Miscarriage(s): 0 Total # of Abortions (Spontaneous & Elective): 0 - Inpatient Certification If this patient has been admitted as an Inpatient: I certify that the inpatient services were ordered in accordance with Medicare regulations governing the order. This includes certification that hospital inpatient services are reasonable and necessary and in the case of services not specified as inpatient-only under 42 CFR 419.22(n), that they are appropriately provided as inpatient services in accordance to with the 2-midnight benchmark under 43 CFR 412.3(e) Estimated Total Length of Stay (Days): 3 Plans for Post Hospital Care: Home [facility], [facility] Medical history: DVT Hypothyroidism Obesity Functional capacity: independent ambulation Patient : Yes Family history: (Melanoma) Surgical history: Breast augmentation Smoking status: Never smoker Substance use type: does not use Alcohol intake: never Review of Systems All other systems reviewed negative except as stated in HPI Physical Exam Vital signs: Pulse Resp BP 84 17 123/79 02/28/18 17:19 02/28/18 17:19 02/28/18 17:19 - Constitutional no acute distress, obese - Routine HEENT Exam Head: Present: normocephalic, atraumatic Eye: Present: EOMI, PERRL, conjunctivae pink ENT: Present: mucous membranes moist, external ear normal - Routine Neck Exam Present: supple, full ROM - Routine Respiratory Exam Present: CTA bilaterally - Routine Cardiovascular Exam Present: RRR - Routine Abdominal Exam Present: soft, normoactive bowel sounds (Nontender, Nondistended, Gravid) - Routine Exam External: Present: normal urethra appearance (Normal EGBUS, no cervical/vaginal masses, physiologic discharge, grossly normal rugae, negative amnisure, SVE 09/22 /-3) Perineal: Present: Intact - Detailed Labor and Delivery Exam Dilation (cm): 1 Effacement (%): 25 Cervix position: posterior station: -3 Consistency: medium Membranes: Intact Baseline heart rate: 130 monitor accelerations: Absent monitor decelerations: None intermediate frame tender variability: Moderate (11-25) - Routine Extremities Exam Present: full ROM, pulses intact - Routine Back/Spine/Pelvis Exam Back/Spine: Present: full ROM - Routine Skin Exam Present: intact, dry, warm - Routine Neurological Exam Present: alert, oriented X3, CN II-XII intact, moving all extremities, normal tone, hearing grossly intact - Routine Psychiatric Exam Present: normal affect, normal thought process, good insight, good judgment Assessment and Plan - Plan Assessment/plan: 1. IUP at 37.0 2. Oligohydramnios with decreased movement: Reassuring heart rate tracing but discussed with Dr. Mcintosh. Will admit to Dr. Mcintosh for induction of labor due to oligohydramnios at term with decreased movement. 3. History of DVT on anticoagulation 4. Hyperemesis 5. Hypothyroidism: On Synthroid 6. well-being: Reassuring testing with reactive NST. heart rate is reassuring and appropriate for gestational age with a category 1 heart rate tracing. NST report: Indications: IUP at 37.0, oligohydramnios, decreased movement, DVT on anticoagulation, hyperemesis, hypothyroidism heart tones are in the 130s with moderate long-term variability, good accelerations, no decelerations noted. This a category 1 heart rate tracing and a reactive NST Follow-up: We will continue monitoring Final diagnosis IUP 37.0, oligohydramnios, decreased movement, DVT on anticoagulation, hyperemesis, hypothyroidism, reassuring testing
[2018-02-28] MEDS ORDERED: Oxytocin 30 Units/500ml Premix 30 UNITS/500 ML BAG IV.SIG ONE (17:52)
[2018-02-28] MEDS ORDERED: fentaNYL Citrate Inj 100 MCG/2 ML Ampul IV.PUSH PRN ×2 (17:52)
[2018-02-28] MEDS ORDERED: Naloxone Inj 0.4 MG/ML Vial IV.PUSH PRN (17:52)
[2018-02-28] MEDS ORDERED: Sodium Chlor 0.9% Inj 500 ML IV.SIG ONE (17:52)
[2018-02-28] MEDS ORDERED: Sod Chloride 0.9% Inj 1,000 ML IV.CONT SCH (18:00)
[2018-02-28] MEDS ORDERED: Citric Acid/Sodium Citrate Liq 15 ML UDC PO SCH (18:00)
[2018-02-28 19:53] LABS: Amphetamine Urine With Conf Neg (Neg); Benzodiazepine Urine With Conf Neg (Neg)
[2018-02-28 22:04] LABS: Baso % (Auto) 0.2 % (0.0-2.0); Eos # (Auto) 0.1 th/mm3 (0.0-0.4); Eos % (Auto) 1.2 % (0.0-4.0); Hematocrit 33.9 % (35.0-46.0); Hemoglobin 10.7 gm/dL (11.6-15.3); Lymph # (Auto) 2.4 th/mm3 (1.0-4.8); Lymph % (Auto) 21.7 % (9.0-44.0); Mean Corpuscular HGB Conc 31.6 % (32.0-36.0); Mean Corpuscular Hemoglobin 24.9 pg (27.0-34.0); Mean Corpuscular Volume 78.7 fL (80.0-100.0); Mean Platelet Volume 9.7 fL (7.0-11.0); Mono % (Auto) 9.4 % (0.0-8.0); Neut # (Auto) 7.3 th/mm3 (1.8-7.7); Neut % (Auto) 67.5 % (16.0-70.0); Platelet Count 225 th/mm3 (150-450); White Blood Count 10.9 th/mm3 (4.0-11.0)
[2018-03-01 05:53] LABS: Amorphous Sediment,Urine Rare /hpf; Bacteria,Urine Few /hpf; Bilirubin,Urine Negative (Negative); Clarity,Urine Hazy (Clear); Color,Urine Straw (Yellw/Straw); Glucose,Urine (UA) Negative (Negative); Leukocyte Esterase,Urine Negative (Negative); Mucus,Urine Few /lpf (Occasional); Nitrite,Urine Negative (Negative); Specific Gravity,Urine 1.009 (1.002-1.035); Squamous Epithelial Cell,Urine <1 /hpf (0-5)
--- NOTE | 2018-03-01 13:30 | P.OBLABOR ---
Subjective Interval history: 37 week, IOL for oligohydramnios; DAYANARA 5.2. Objective Vital Signs: Vital Signs - 8 hr 03/01/18 07:10 03/01/18 10:54 03/01/18 10:55 Temperature 98.0 F 99.0 F Pulse Rate 82 128 H Respiratory Rate 20 20 Blood Pressure 127/86 117/80 03/01/18 11:44 Temperature Pulse Rate 84 Respiratory Rate Blood Pressure 127/83 Objective: Pelvic Exam: Cervix: posterior Dilatation: [finger tip Effacement: 50] Station: -3 Presentation: vtx Membranes: [intact FHT's: Category: 1 Weeks Gestation: 37 Patient Started Active Labor: No Medical Induction of Labor: Yes Medical Induction Start Date: 02/28/18 Medical Induction Start Time: 17:55 Artificial Rupture of Membrane: No Assessment and Plan - Plan Assessment/plan: 1. IUP at 37.0; 2. Oligohydramnios with decreased movement: Reassuring heart rate tracing; induction of labor due to oligohydramnios at term with decreased movement. 3. History of DVT on anticoagulation 4. Hyperemesis 5. Hypothyroidism: On Synthroid 6. well-being: Reassuring testing with reactive NST. heart rate is reassuring and appropriate for gestational age with a category 1 heart rate tracing. 7. IOL with cytotec, poor response to cervidil; anticipate NVD
[2018-03-01] MEDS ORDERED: Oxytocin 30 Units/500ml Premix 30 UNITS/500 ML BAG IV.SIG PRN (17:30)
[2018-03-01] MEDS ORDERED: fentaNYL 2MCG-Bupiv 0.125% Epi 150 ML EPIDURAL ONE ×2 (17:52→18:00)
[2018-03-01] MEDS ORDERED: fentaNYL Citrate Inj 100 MCG/2 ML Ampul EPIDURAL ONE (18:00)
[2018-03-01] MEDS ORDERED: Acetaminophen 325 MG Tablet PO PRN (20:04)
[2018-03-01] MEDS ORDERED: Witch Hazel 50%/Glyderin 12.5% 40 Pad Jar RECTAL PRN (20:04)
[2018-03-01] MEDS ORDERED: Bisacodyl 10 MG Supp RECTAL PRN (20:04)
[2018-03-01] MEDS ORDERED: Naloxone Inj 0.4 MG/ML Vial IV.PUSH PRN (20:04)
[2018-03-01] MEDS ORDERED: Benzocaine 20% Top Spray 60 ML Can TOPICAL PRN (20:04)
--- NOTE | 2018-03-01 20:12 | P.OBDELI ---
Weeks Gestation: 37 Patient Started Active Labor: No Medical Induction of Labor: Yes Artificial Rupture of Membrane: Yes Artificial ROM Date: 03/01/18 Artificial ROM Time: 18:20 Episiotomy: none Vaginal Delivery: Normal Presentation: Occiput anterior Nuchal Cord: x1 Delayed Cord Clamping (45 sec): Yes Placenta: Spontaneous delivery, Intact Laceration: Vaginal, 1 deg Repair: Vicryl running Estimated blood loss (mL): 200 Infant: Male
[2018-03-01] MEDS ORDERED: Oxytocin 30 Units/500ml Premix 30 UNITS/500 ML BAG IV.CONT SCH (21:00)
[2018-03-01] MEDS ORDERED: Senna/Docusate Sodium 8.6/50 MG Tablet PO SCH (21:00)
[2018-03-01] MEDS ORDERED: Diphtheria/Tetanus/Pertussis Vaccine Inj 0.5 ML Syringe IM ONE (21:00)
[2018-03-01] MEDS ORDERED: Zolpidem Tartrate 5 MG Tablet PO PRN (21:00)
[2018-03-01] MEDS ORDERED: Measles/Mumps/Rubella Vaccine Inj 0.5 ML Vial SQ ONE (21:00)
[2018-03-02] MEDS: Ibuprofen 400 MG Tablet PO PRN ×2 (04:43→13:38)
--- NOTE | 2018-03-02 08:51 | P.PNOB ---
Subjective Post day: 1 Interval history: Doing well nursing postponing circumcision due to maternal use of lovenox no complaints today Objective Vital Signs/I&O: Vital Signs 03/01/18 10:54 03/01/18 10:55 03/01/18 11:44 Temperature 99.0 F Pulse Rate 82 128 H 84 Respiratory Rate 20 Blood Pressure 127/86 117/80 127/83 03/01/18 12:00 03/01/18 13:55 03/01/18 17:00 Temperature 98.4 F Pulse Rate 80 Respiratory Rate 20 18 Blood Pressure 128/70 03/01/18 17:11 03/01/18 17:12 03/01/18 18:08 Temperature 98.0 F Pulse Rate 80 Respiratory Rate Blood Pressure 126/79 125/84 03/01/18 18:15 03/01/18 18:31 03/01/18 18:35 Temperature Pulse Rate 81 88 90 Respiratory Rate Blood Pressure 129/69 117/61 131/72 03/01/18 18:40 03/01/18 19:00 03/01/18 19:09 Temperature Pulse Rate 71 Respiratory Rate 20 20 Blood Pressure 118/74 03/01/18 19:15 03/01/18 19:30 03/01/18 19:40 Temperature Pulse Rate 255 H 83 Respiratory Rate 20 Blood Pressure 134/90 121/69 03/01/18 20:10 03/01/18 20:16 03/01/18 20:30 Temperature Pulse Rate 113 H 109 H Respiratory Rate 20 17 Blood Pressure 137/78 168/66 H 03/01/18 20:53 03/01/18 21:16 03/01/18 21:31 Temperature Pulse Rate 83 81 85 Respiratory Rate 16 Blood Pressure 131/78 123/62 121/86 03/01/18 21:44 03/01/18 22:03 Temperature 99.5 F 98.4 F Pulse Rate 74 Respiratory Rate 17 18 Blood Pressure 115/84 Intake & Output 03/01/18 03/02/18 03/02/18 18:59 06:59 18:59 Intake Total 1000 / 1000 Balance 1000 / 1000 Intake: IV 1000 / 1000 LR 1000 mL Inj 1,000 ML @ 125 1000 / 1000 mls/hr IV.CONT .Q8H MARLENI Rx#: [id number] Result Diagrams: 02/28/18 19:46 Objective Remarks: GENERAL: Well-nourished, well-developed patient. CARDIOVASCULAR: Regular rate and rhythm without murmurs, gallops, or rubs. RESPIRATORY: Breath sounds equal bilaterally. No accessory muscle use. ABDOMEN/GI: Abdomen soft, non-tender. Fundus: Firm, non-tender at umbilicus. GENITOURINARY: Light to moderate bleeding. EXTREMITIES: No cyanosis or edema, non-tender, without signs of DVT. Medications and IVs: Active Medications Acetaminophen (Tylenol) 650 mg PO Q4H PRN PRN Reason: PAIN SCALE 1 TO 2 Al Hydroxide/Mg Hydroxide (Milk Of Magnesia Liq) 30 ml PO Q12H PRN PRN Reason: Mild Constipation Benzocaine (Americaine 20% Top [place]) 1 spray TOPICAL Q4H PRN PRN Reason: For Perineum Discomfort Bisacodyl (Dulcolax Supp) 10 mg RECTAL DAILY PRN PRN Reason: SEVERE CONSITIPATION Citric Acid/Sodium Citrate (Sod Citrate/Citric Acid Liq) 30 ml PO [employer] COORDIN[facility] Stop: 03/04/18 17:59 Ephedrine Sulfate (Ephedrine/Ns Syringe) 10 mg IV.PUSH UNSCH PRN PRN Reason: SEE LABEL COMMENTS Stop: 03/02/18 17:59 Fentanyl Citrate (Fentanyl Inj) 50 mcg IV.PUSH Q1H PRN PRN Reason: Pain Scale 3 - 5 Fentanyl Citrate (Fentanyl Inj) 100 mcg IV.PUSH Q1H PRN PRN Reason: PAIN SCALE 6 TO 10 Last Admin: 03/01/18 14:41 Dose: 100 mcg Lactated Ringer's (Lr 1000 Ml Inj) 1,000 mls @ 125 mls/hr IV.CONT .Q8H [facility] Last Admin: 03/01/18 14:59 Dose: 125 mls/hr Sodium Chloride (Ns Inj) 1,000 mls @ 100 mls/hr IV.CONT .Q10H [facility] Oxytocin (Pitocin 30 Units/Ns 500 Ml Premix) 30 units in 500 mls @ 2 mls/hr IV.SIG TITRATE PRN; Protocol PRN Reason: For induction of labor Lactulose (Lactulose Liq) 30 ml PO DAILY PRN PRN Reason: SEVERE CONSITIPATION Lidocaine HCl (Xylocaine 1% Inj) 0.1 ml INFILTRATN PRN PRN PRN Reason: For IV start Stop: 03/03/18 17:51 Lidocaine HCl (Xylocaine 1% Inj) 10 ml INFILTRATN PRN PRN PRN Reason: For episiotomy repair Stop: 03/02/18 17:51 Metoclopramide HCl (Reglan Inj) 10 mg IV.PUSH ONCE PRN; Protocol PRN Reason: NAUSEA OR VOMITING Mineral Oil (Muri-Lube Oil) 10 ml TOPICAL PRN PRN PRN Reason: PRN perineal massage Miscellaneous Information (Misc Information) 1 each OTHER UNSCH PRN PRN Reason: SEE LABEL COMMENTS Stop: 03/02/18 17:59 Miscellaneous Information (Misc Information) 1 each OTHER UNSCH PRN PRN Reason: SEE LABEL COMMENTS Stop: 03/02/18 17:59 Naloxone HCl (Narcan Inj) 0.1 mg IV.PUSH Q2M PRN PRN Reason: for opiate reversal Naloxone HCl (Narcan Inj) 0.1 mg IV.PUSH Q2M PRN PRN Reason: for opiate reversal Ondansetron HCl (Zofran Odt) 4 mg PO Q6H PRN PRN Reason: NAUSEA OR VOMITING Senna/Docusate Sodium (Summer-Colace) 1 tab PO BID MARLENI Sennosides (Senokot) 17.2 mg PO Q12H PRN PRN Reason: Moderate Constipation Sodium Chloride (Ns Flush) 2 ml IV.FLUSH BID MARLENI Sodium Chloride (Ns Flush) 2 ml IV.FLUSH PRN PRN PRN Reason: FLUSH AFTER USING IV ACCESS Witch Vero/Glycerin (Tucks Pads) 1 applicatio RECTAL QID PRN PRN Reason: HEMORRHOIDS Zolpidem Tartrate (Ambien) 5 mg PO HS PRN PRN Reason: SLEEP Assessment and Plan - Diagnosis (1) Routine follow-up Code(s): Z39.2 - Encounter for routine follow-up Status: Acute Plan: Discharge home PPD 2 on lovenox for 6 weeks bring to office for circumcision watch for PPH, DVT, depression RTO 2 weeks - Plan Assessment/plan: 1. IUP at 37.0; 2. Oligohydramnios with decreased movement: Reassuring heart rate tracing; induction of labor due to oligohydramnios at term with decreased movement. 3. History of DVT on anticoagulation 4. Hyperemesis 5. Hypothyroidism: On Synthroid 6. well-being: Reassuring testing with reactive NST. heart rate is reassuring and appropriate for gestational age with a category 1 heart rate tracing. 7. IOL with cytotec, poor response to cervidil; anticipate NVD
[2018-03-02] MEDS ORDERED: Diphtheria/Tetanus/Pertussis Vaccine Inj 0.5 ML Syringe IM ONE (15:32)
[2018-03-02] MEDS ORDERED: Senna/Docusate Sodium 8.6/50 MG Tablet PO SCH (17:00)
[2018-03-02] MEDS ORDERED: Enoxaparin Inj 40 MG/0.4 ML Syringe SQ SCH (21:00)
--- NOTE | 2018-03-03 07:57 | P.PNOB ---
Subjective Post day: 2 (doing well, mild cramps with ; lochia lessening ) Objective Vital Signs/I&O: Vital Signs 03/02/18 20:00 03/02/18 20:25 Temperature 98.3 F 98.3 F Pulse Rate 96 H 96 H Respiratory Rate 18 18 Blood Pressure 122/78 122/78 Result Diagrams: 02/28/18 19:46 Objective Remarks: GENERAL: Well-nourished, well-developed patient. CARDIOVASCULAR: Regular rate and rhythm without murmurs, gallops, or rubs. RESPIRATORY: Breath sounds equal bilaterally. No accessory muscle use. ABDOMEN/GI: Abdomen soft, non-tender. Fundus: Firm, non-tender at umbilicus. GENITOURINARY: Light to moderate bleeding. EXTREMITIES: No cyanosis or edema, non-tender, without signs of DVT. Medications and IVs: Active Medications Acetaminophen (Tylenol) 650 mg PO Q4H PRN PRN Reason: PAIN SCALE 1 TO 2 Al Hydroxide/Mg Hydroxide (Milk Of Magnesia Liq) 30 ml PO Q12H PRN PRN Reason: Mild Constipation Benzocaine (Americaine 20% Top [place]) 1 spray TOPICAL Q4H PRN PRN Reason: For Perineum Discomfort Bisacodyl (Dulcolax Supp) 10 mg RECTAL DAILY PRN PRN Reason: SEVERE CONSITIPATION Citric Acid/Sodium Citrate (Sod Citrate/Citric Acid Liq) 30 ml PO [employer] ADMINISTRATOR [facility] Stop: 03/04/18 17:59 Enoxaparin Sodium (Lovenox Inj) 40 mg SQ DAILY@2100 [facility] Last Admin: 03/02/18 21:55 Dose: 40 mg Fentanyl Citrate (Fentanyl Inj) 50 mcg IV.PUSH Q1H PRN PRN Reason: Pain Scale 3 - 5 Fentanyl Citrate (Fentanyl Inj) 100 mcg IV.PUSH Q1H PRN PRN Reason: PAIN SCALE 6 TO 10 Last Admin: 03/01/18 14:41 Dose: 100 mcg Lactated Ringer's (Lr 1000 Ml Inj) 1,000 mls @ 125 mls/hr IV.CONT .Q8H [facility] Last Admin: 03/01/18 14:59 Dose: 125 mls/hr Sodium Chloride (Ns Inj) 1,000 mls @ 100 mls/hr IV.CONT .Q10H [facility] Oxytocin (Pitocin 30 Units/Ns 500 Ml Premix) 30 units in 500 mls @ 2 mls/hr IV.SIG TITRATE PRN; Protocol PRN Reason: For induction of labor Lactulose (Lactulose Liq) 30 ml PO DAILY PRN PRN Reason: SEVERE CONSITIPATION Lidocaine HCl (Xylocaine 1% Inj) 0.1 ml INFILTRATN PRN PRN PRN Reason: For IV start Stop: 03/03/18 17:51 Metoclopramide HCl (Reglan Inj) 10 mg IV.PUSH ONCE PRN; Protocol PRN Reason: NAUSEA OR VOMITING Mineral Oil (Muri-Lube Oil) 10 ml TOPICAL PRN PRN PRN Reason: PRN perineal massage Naloxone HCl (Narcan Inj) 0.1 mg IV.PUSH Q2M PRN PRN Reason: for opiate reversal Naloxone HCl (Narcan Inj) 0.1 mg IV.PUSH Q2M PRN PRN Reason: for opiate reversal Ondansetron HCl (Zofran Odt) 4 mg PO Q6H PRN PRN Reason: NAUSEA OR VOMITING Senna/Docusate Sodium (Summer-Colace) 1 tab PO BID MARLENI Sennosides (Senokot) 17.2 mg PO Q12H PRN PRN Reason: Moderate Constipation Sodium Chloride (Ns Flush) 2 ml IV.FLUSH BID MARLENI Sodium Chloride (Ns Flush) 2 ml IV.FLUSH PRN PRN PRN Reason: FLUSH AFTER USING IV ACCESS Witch Vero/Glycerin (Tucks Pads) 1 applicatio RECTAL QID PRN PRN Reason: HEMORRHOIDS Zolpidem Tartrate (Ambien) 5 mg PO HS PRN PRN Reason: SLEEP Assessment and Plan - Diagnosis (1) (spontaneous vaginal delivery) Code(s): O80 - Encounter for full-term uncomplicated delivery Status: Acute - Plan PPD#2; routine supportive care, meeting all d/c criteria, due to maternal lovenox use will plan circ in 1 week in office, pt aware; pt to resume home lovenox, has Rx; alternate motrin & tylenol at home prn Discharge Planning: today
[2018-03-03] MEDS ORDERED: Senna/Docusate Sodium 8.6/50 MG Tablet PO SCH (09:00)
== END 2018-03-03 16:20 | disposition home or self-care (01) ==
LOC: HOBED 16:40 → H2E 19:00 → H1EA 03-01 21:54
PROVIDERS: ADMIT Obstetrics & Gynecology; ATTEND Obstetrics & Gynecology